=== PATIENT | female | born 1935 | race Caucasian/White ===

== ENCOUNTER 2021-11-07 16:38 | Emergency (ER) | payer MEDICARE, SELFPAY ==
[2021-11-07 16:45] VITALS: BP 145/94; BP 192/70; PULSE 110; PULSE 78; RESP 14; O2SAT 97; O2SAT 98; BMI 32.9
--- NOTE | 2021-11-07 16:45 | ED_ITS ---
HPI - General Adult General Chief complaint: Recheck/Abnormal Lab/Rx Stated complaint: hyperglycemic Time Seen by Provider: 11/07/21 16:42 Source: patient Mode of arrival: EMS Limitations: no limitations History of Present Illness HPI narrative: Patient came from assisted living for elevated blood sugar of 861. Patient feels okay otherwise had insulin in the morning, checked her blood sugar read 861 in fact she was reading it upside down supposed to be 168 feels slightly off and is no nausea or vomiting no abdominal pain no fever earlier today her blood sugar was 381 otherwise usually blood sugar less than 200 blood sugar tested by EMS was 163 and 155 and here on arrival was 137 Related Data Allergies Allergy/AdvReac Type Severity Reaction Status Date / Time Sulfa (Sulfonamide Allergy Unknown NAUSEA & Unverified 10/25/19 19:41 Antibiotics) VOMITING [SULFA (SULFONAMIDE ANTIBIOTICS)] Review of Systems Review of Systems: Yes all other systems are reviewed and are negative PMFSH Social History Social History Advance Directives: Yes Advance Directives Information Provided: No Advance Directives on File: No Physical Exam ED Vital Signs: Vital Signs - 24 hr 11/07/21 16:45 11/07/21 17:46 11/07/21 20:00 Temperature 98.1 F 97.7 F Pulse Rate 78 86 78 Respiratory Rate 14 16 16 Blood Pressure 145/94 H 131/57 L 150/60 H Pulse Oximetry 97 98 98 Oxygen Delivery Method Room Air Room Air Room Air 11/07/21 20:52 Temperature 98.2 F Pulse Rate 80 Respiratory Rate 18 Blood Pressure 156/52 H Pulse Oximetry 96 Oxygen Delivery Method Room Air BMI result Body Mass Index 32.9 Appearance: Alert. Oriented X3. No acute distress. ENT: Pharynx normal. Oral Mucosa moist Neck: Normal inspection. Neck supple. CVS: Normal heart rate and rhythm. Pulses normal. Respiratory: No respiratory distress. Equal air entry bilateral, no wheezing/rales/rhonchi Abdomen: Soft and nontender. Bowel sounds are present, no mass palpable, no CVA tenderness Skin: Skin warm and dry. Normal skin color. Normal skin turgor. Extremities: No lower extremity edema. No calf tenderness Neuro: Oriented X 3. No motor deficit. Medical Decision Making MDM Narrative Medical decision making narrative: Patient labs reveal creatinine elevated to 1.62 her usual creatinine is 1.3 or less. Patient advised to drink plenty of fluids IV fluids were given in the ER advised to follow-up with PCP to recheck her creatinine level within a week Lab Data Lab results reviewed: Yes I reviewed the patient's lab results. Result diagrams: 11/07/21 17:36 11/07/21 17:36 Labs: Lab Results 11/07/21 11/07/21 11/07/21 Range/Units 16:46 17:36 17:36 WBC 8.4 (4.8-10.8) X10*3/uL RBC 4.29 (4.20-5.50) X10*6/uL Hgb 11.5 L (12.0-16.0) g/dl Hct 36.7 L (37.0-47.0) % MCV 85.5 (80.0-98.0) fL MCH 26.8 L (27.0-33.0) pg MCHC 31.3 (31.0-35.0) g/dl RDW 13.6 (11.0-16.0) % Plt Count 263 (160-400) X10*3/uL MPV 12.5 H (9.4-12.3) fL Immature Gran % (Auto) 0.6 H (0.0-0.4) % Neut % (Auto) 69.9 (45-73) % Lymph % (Auto) 16.8 L (20-40) % [place] % (Auto) 7.9 (2-11) % Eos % (Auto) 3.9 (0-4) % Baso % (Auto) 0.9 (0-2) % Lymph # (Auto) 1.4 (1.2-4.9) X10*3/uL [place] # (Auto) 0.7 (0.1-1.2) X10*3/uL Eos # (Auto) 0.3 (0.0-0.4) X10*3/uL Baso # (Auto) 0.1 (0.0-0.2) X10*3/uL Abs Immat Gran (auto) 0.05 H (0.00-0.03) X10*3/uL Absolute Neuts (auto) 5.9 (2.0-8.3) x10*3/uL Absolute Nucleated RBC 0.000 (0.0-0.012) X10*3/uL Nucleated RBC % (auto) 0.0 (0.0-0.2) /100WBC Sodium 137 (135-145) mmol/L Potassium 4.4 (3.3-5.1) mmol/L Chloride 100 (96-108) mmol/L Carbon Dioxide 22 (22-29) mmol/L Anion Gap 19 (12-20) BUN 35 H (9-16) mg/dL Creatinine 1.62 H (0.5-1.4) mg/dL Estim Creat Clear Calc 25.1 Estimated GFR 30 POC Glucose 137 H (60-115) mg/dL Random Glucose 137 H (60-115) mg/dL Calcium 9.1 (8.4-10.2) mg/dL Magnesium 2.0 (1.6-2.6) mg/dL Total Bilirubin 0.4 (0.0-1.0) mg/dL AST 21 (5-31) U/L ALT 12 (0-31) U/L Alkaline Phosphatase 155 H (39-117) U/L Total Protein 6.8 (6.5-8.0) g/dL Albumin 4.1 (3.5-5.0) g/dL Urine Color Urine Appearance Urine pH (5.0-9.0) Ur Specific [place] (1.005-1.025) Urine Protein (Neg-Trace) mg/dL Urine Glucose (UA) (Negative) mg/dL Urine Ketones (Negative) mg/dL Urine Blood (Negative) Urine Nitrite (Negative) Ur Leukocyte Esterase (Negative) Urine RBC (0-2) /HPF Urine WBC (0-5) /HPF Ur Squamous Epith Cells (0-2) /HPF Urine Bacteria (None Seen) Hyaline Casts (0-2) /LPF COVID-19 (GABRIELA) (Negative) COVID-19 Clin Com 11/07/21 11/07/21 Range/Units 17:36 17:36 WBC (4.8-10.8) X10*3/uL RBC (4.20-5.50) X10*6/uL Hgb (12.0-16.0) g/dl Hct (37.0-47.0) % MCV (80.0-98.0) fL MCH (27.0-33.0) pg MCHC (31.0-35.0) g/dl RDW (11.0-16.0) % Plt Count (160-400) X10*3/uL MPV (9.4-12.3) fL Immature Gran % (Auto) (0.0-0.4) % Neut % (Auto) (45-73) % Lymph % (Auto) (20-40) % [place] % (Auto) (2-11) % Eos % (Auto) (0-4) % Baso % (Auto) (0-2) % Lymph # (Auto) (1.2-4.9) X10*3/uL [place] # (Auto) (0.1-1.2) X10*3/uL Eos # (Auto) (0.0-0.4) X10*3/uL Baso # (Auto) (0.0-0.2) X10*3/uL Abs Immat Gran (auto) (0.00-0.03) X10*3/uL Absolute Neuts (auto) (2.0-8.3) x10*3/uL Absolute Nucleated RBC (0.0-0.012) X10*3/uL Nucleated RBC % (auto) (0.0-0.2) /100WBC Sodium (135-145) mmol/L Potassium (3.3-5.1) mmol/L Chloride (96-108) mmol/L Carbon Dioxide (22-29) mmol/L Anion Gap (12-20) BUN (9-16) mg/dL Creatinine (0.5-1.4) mg/dL Estim Creat Clear Calc Estimated GFR POC Glucose (60-115) mg/dL Random Glucose (60-115) mg/dL Calcium (8.4-10.2) mg/dL Magnesium (1.6-2.6) mg/dL Total Bilirubin (0.0-1.0) mg/dL AST (5-31) U/L ALT (0-31) U/L Alkaline Phosphatase (39-117) U/L Total Protein (6.5-8.0) g/dL Albumin (3.5-5.0) g/dL Urine Color Yellow Urine Appearance Clear Urine pH 6.5 (5.0-9.0) Ur Specific [place] <= 1.005 (1.005-1.025) Urine Protein Negative (Neg-Trace) mg/dL Urine Glucose (UA) Negative (Negative) mg/dL Urine Ketones Negative (Negative) mg/dL Urine Blood Negative (Negative) Urine Nitrite Negative (Negative) Ur Leukocyte Esterase Trace H (Negative) Urine RBC 0-2 (0-2) /HPF Urine WBC 0-5 (0-5) /HPF Ur Squamous Epith Cells 0-2 (0-2) /HPF Urine Bacteria None Seen (None Seen) Hyaline Casts 0-2 (0-2) /LPF COVID-19 (GABRIELA) Positive A (Negative) COVID-19 Clin Com See Note Discharge Plan Discharge Clinical Impression: Hyperglycemia due to diabetes mellitus, BERT (acute kidney injury) Patient Disposition: Home, Self-Care Instructions: Acute Kidney Injury (DC), Diabetic Hyperglycemia (ED) Additional Instructions: Drink plenty of fluids Continue your insulin Follow-up with kidney specialist next week to recheck her kidney functions Today labs showed BUN 35 creatinine 1.62 Interventions: ED Discharge Assessment Last Done: 11/07/21 21:11 Discharge Date/Time: 11/07/21 21:13
[2021-11-07 16:50] LABS: Glucose, Whole Blood 137 mg/dL (60-115)
--- OUTSIDE RECORDS SUMMARY | 2021-11-07 17:03 | XMS_ITS | Continuity of Care Document ---
:1935 Author Organization [facility] Adult Address [address] [place] [address]- Care Team Providers Name Role Phone Shelly Smith NP Primary Care Physician [phone] [place] [facility] [place] 05/22[place]19 - 06/01/19 [facility] [address] [place] [address]- [facility] Attending Physician: Francisca Maradiaga Admitting Physician: AdmFrancisca davis Referring Physician: AdmtrFrancisca Allergies, Adverse Reactions, Alerts Substance Reaction Severity Status ciprofloxacin GI upset Active sulfADIAZINE Active Bactrim GI Upset Active Immunizations Given and Recorded Vaccine Date Status Refusal Reason influenza virus vaccine, inactivated1 11/04/17 Given influenza virus vaccine, inactivated2 10/27/16 Given influenza virus vaccine, inactivated3, 4 10/23/14 Recorde d influenza virus vaccine, inactivated5 10/23/13 Given influenza virus vaccine, inactivated6 11/11/12 Given influenza virus vaccine, inactivated 12/12/10 Given influenza virus vaccine, inactivated7 10/26/09 Given Zostavax (oldterm)8 10/27/16 Given Zostavax (oldterm)9 12/26/09 Given Influenza Vaccine (oldterm)10 10/03/15 Given pneumococcal 13-valent vaccine 09/09/14 Given FluLaval (oldterm) 11/12/11 Given pneumococcal 23-valent vaccine 01/18/11 Given tetanus-diphtheria toxoids (Td) 03/23/10 Given 1Result Comment: [id number] Note: [facility] [id number] History: [facility] Result Comment: [10/25/2014] HIGH [id number] Note: UGR1Tvgoe Note: Djqiomvv1Lcmbz Note: Wqicgcg8Qshcb Note: ceh5Kzcgp Note: Had hx of Xjgnmyfx66Izvdd Note: [facility] Medications amLODIPine 10 mg oral tablet 10 mg, 1, tablet, By Mouth, Daily, # 90 tablet, Refills 1, Tot. Refills 1, Maintenance, 05/22/19 10:36:00 EDT, [id number] 151.[facility], cm, 11/17/18 14:59:00 EDT, Height, 82.1, kg, 11/28/17 5:31:00 EDT, Dry Weight Start Date: 05/22/19 Stop Date: 11/18/19 Status: Orderedclopidogrel 75 mg oral tablet 75 mg, 1, tablet, By Mouth, Daily, # 90 tablet, Refills 2, Tot. Refills 2, Maintenance, 01/23/19 9:36:23 EST, [id number], 151.6, cm, 11/17/18 14:59:53 EDT, Height, 82.1, kg, 11/28/17 5:31:23 EDT, Dry Weight Start Date: 01/23/19 Stop Date: 01/18/20 Status: OrderedCranberry 0 Refills, Maintenance, 12/25/17 9:50:30 EST Start Date: 12/25/17 Status: Orderedfamotidine 20 mg oral tablet 20 mg, 1, tablet, By Mouth, Daily, # 90 tablet, Refills 2, Tot. Refills 2, Maintenance, 01/23/19 9:38:29 EST, Route to Pharmacy Electronically, [facility]/pharmacy #[id number], 151.6, cm, 11/17/18 14:59:53 EDT, Height, 82.1, kg, 11/28/17 5:31:23 EDT, Dry Weight Start Date: 01/23/19 Status: Orderedhydrochlorothiazide 25 mg oral tablet 25 mg, 1, tablet, By Mouth, Daily, # 90 tablet, Refills 2, Tot. Refills 2, Maintenance, 01/23/19 9:37:15 EST, [id number], 151.6, cm, 11/17/18 14:59:53 EDT, Height, 82.1, kg, 11/28/17 5:31:23 EDT, Dry Weight Start Date: 01/23/19 Stop Date: 01/18/20 Status: Orderedinsulin detemir 100 units/mL subcutaneous solution = 45 units, Subcutaneous Injection, Daily at bedtime, # 15 mL, 11 Refills, Maintenance, 07/18/18 10:47:18 EDT Start Date: 07/18/18 Stop Date: 07/02/21 Status: OrderedLevimir increase to 50 units daily Levimir increase to 50 units daily, See Instructions, # 1 each, Refills 0, Tot. Refills 0, Acute 11/18/19 15:53:00 EDT, Change in Levmiri dosing, 11/17/18 15:53:12 EDT, Compound Start Date: 11/17/18 Stop Date: 11/18/19 Status: Orderedlevothyroxine 0.112 mg oral tablet 1 tablet = 112 mcg, By Mouth, Daily, # 90 tablet, 0 Refills, Maintenance, 04/18/19 16:48:00 EDT, Tablet, [facility]/pharmacy #[id number], 151.6, cm, 11/17/18 14:59:00 EDT, Height, 82.1, kg, 11/28/17 5:31:00 EDT, Dry Weight Start Date: 04/18/19 Status: OrderedNovoLOG FlexPen 100 units/mL subcutaneous solution See Instructions, INJECT SUB Q PER SLIDING SCALE. MAX 24 UNITS DAILY, # 1 each, 11 Refills, Maintenance, 10/25/18 14:55:27 EDT, Injection Start Date: 10/25/18 Status: OrderedOne Touch Ultra Test Strips See Instructions, # 200 each, Refills 11, Tot. Refills 11, Maintenance, USED TO TEST BLOOD SUGARS QID DX: E11.9 , TYPE 2 DM, 05/22/19 12:22:00 EDT, Compound, 151.6, cm, 11/17/18 14:59:00 EDT, Height, 82.1, kg, 11/28/17 5:31:00 EDT, Dry Weight Start Date: 05/22/19 Status: OrderedPen [place], 31 G x 5 mm BD Ultra Fine III See Instructions, # 100 each, Refills 5, Tot. Refills 5, Maintenance, Use as daily with insulin Dx: Type 2 DM, E11.9, 04/24/19 10:39:00 EDT, Compound, 151.6, cm, 11/17/18 14:59:00 EDT, Height, 82.1, kg, 11/28/17 5:31:00 EDT, Dry Weight Start Date: 04/24/19 Stop Date: 10/21/19 Status: Orderedpotassium chloride 10 mEq oral tablet, extended release 2 tablet = 20 mEq, By Mouth, Daily, # 60 tablet, 11 Refills, Maintenance, 10/25/18 14:58:41 EDT, ER Tablet Start Date: 10/25/18 Status: Orderedpravastatin 40 mg oral tablet 1 tablet = 40 mg, By Mouth, Daily, # 30 tablet, 5 Refills, Maintenance, 01/02/19 15:11:43 EST, Tablet Start Date: 01/02/19 Status: OrderedVitamin D3 1000 intl units oral tablet 1 tablet = 1,000 International_Units, By Mouth, Daily, # 30 tablet, 0 Refills, Maintenance, 12/15/1813:43:58 EST, Tablet Start Date: 12/15/17 Stop Date: 01/14/18 Status: Ordered Problem List Condition Effective Dates Status Health Status Informant Diabetic nephropathy(Confirmed) Active Esophageal spasm(Confirmed) Active Cerebral infarction, Active chronic(Confirmed) Hypercholesterolemia(Confirmed) Active Hypertension(Confirmed) Active Type 2 diabetes mellitus(Confirmed) Active Unspecified Hypothyroidism(Confirmed) 01/26/10 Active Social History Social History Type Response Smoking Status Unknown if ever smoked entered on: 01/10/15 Sex
--- OUTSIDE RECORDS SUMMARY | 2021-11-07 17:03 | XMS_ITS | Continuity of Care Document ---
:1935 Author Organization [facility] Address [address] [place] [address]- Care Team Providers Name Role Phone Luis ASHLEY, Shelly Villareal Primary Care Physician [phone] [place] [facility] [place] 08/24/21 - 09/23/21 [facility] [address] [place] [address]- Attending Physician: Francisca Maradiaga Admitting Physician: AdmFrancisca davis Referring Physician: Admtr ArElyssa Allergies, Adverse Reactions, Alerts Substance Reaction Severity Status ciprofloxacin GI upset Active sulfADIAZINE Active Bactrim GI Upset Active Immunizations Given and Recorded Vaccine Date Status Refusal Reason SARS-CoV-2 (COVID-19) mRNA BNT-162b2 vac 12/17/20 Recorde d SARS-CoV-2 (COVID-19) mRNA BNT-162b2 vac 03/21/20 Recorde d SARS-CoV-2 (COVID-19) mRNA BNT-162b2 vac 02/29/20 Recorde d tetanus-diphtheria toxoids (Td)1 11/24/20 Given tetanus-diphtheria toxoids (Td) 03/23/10 Given influenza virus vaccine, inactivated 11/23/19 Recorded influenza virus vaccine, inactivated2 11/04/17 Given influenza virus vaccine, inactivated3 10/27/16 Given influenza virus vaccine, inactivated4, 5 10/23/14 Recorde d influenza virus vaccine, inactivated6 10/23/13 Given influenza virus vaccine, inactivated7 11/11/12 Given influenza virus vaccine, inactivated 12/12/10 Given influenza virus vaccine, inactivated8 10/26/09 Given Zostavax (oldterm)9 10/27/16 Given Zostavax (oldterm)10 12/26/09 Given Influenza Vaccine (oldterm)11 10/03/15 Given pneumococcal 13-valent vaccine 09/09/14 Given FluLaval (oldterm) 11/12/11 Given pneumococcal 23-valent vaccine 01/18/11 Given 1Result Comment: [facility] [id number] Comment: [id number] Note: [facility] [id number] History: [id number] Comment: [10/25/2014] HIGH [id number] Note: MDL5Rfqbe Note: Fbepwuqz7Mqgbz Note: Ydveyxb0Eksbq Note: xiz62Nqlnm Note: Had hx of Qnfhwpmf00Rlqgc Note: [facility] high dose Medications amLODIPine 10 mg oral tablet 1 tablet, By Mouth, Daily, # 90 tablet, 1 Refills, [facility], 151.6, cm, 05/25/21 8:30:00 EDT,Height Start Date: 07/20/21 Status: Orderedclopidogrel 75 mg oral tablet 1, tablet, By Mouth, Daily, # 90 tablet, Refills 3, Route to Pharmacy Electronically, [facility] [address], 151.6, cm, 11/24/20 8:55:00 EDT, Height Start Date: 01/09/21 Status: OrderedCompression stockings 20-30 mmhg Compression stockings 20-30 mmhg, See Instructions, # 1 each, Refills 0, Tot. Refills 0, Maintenance, Dx: Bilateral lower ankle edema, 05/25/21 10:52:00 EDT, Supply Start Date: 05/25/21 Status: OrderedCranberry 0 Refills, Maintenance, 12/25/17 9:50:30 EST Start Date: 12/25/17 Status: Ordereddocusate sodium 50 mg oral capsule 1 capsule = 50 mg, By Mouth, 2 times a day, # 60 capsule, 0 Refills, Maintenance, 05/26/20 9:11:00 EDT, [facility]/pharmacy #[id number], Partial fill upon patient request if the prescription is for a schedule II opioid drug., 151.6, cm, 05/26/20 8:48:00 EDT, Height Start Date: 05/26/20 Status: Orderedfamotidine 20 mg oral tablet 1, tablet, By Mouth, Daily, # 90 tablet, Refills 1, Route to Pharmacy Electronically, [facility], 151.6, cm, 05/25/21 8:30:00 EDT, Height Start Date: 07/20/21 Status: OrderedFreestyle Francheska Sensor See Instructions, # 1 each, Maintenance, use as directed for Type 2 Diabetes Mellitus E11.9, 05/27/21 8:48:00 EDT, Supply, 151.6, cm, 05/25/21 8:30:00 EDT, Height Start Date: 05/27/21 Stop Date: 06/26/21 Status: Orderedhydrochlorothiazide 25 mg oral tablet 1, tablet, By Mouth, Daily, # 90 tablet, Refills 0, Route to Pharmacy Electronically, [facility], 151.6, cm, 11/24/20 8:55:00 EDT, Height Start Date: 04/07/21 Status: OrderedLevemir FlexTouch 100 units/mL subcutaneous solution See Instructions, INJECT 55 UNITS SUBCUTANEOUSLY ONCE DAILY AT BEDTIME, # 45 Unknown, 2 [facility]ills[facility], cm, 11/24/20 8:55:00 EDT, Height Start Date: 02/11/21 Status: Orderedlevothyroxine 0.137 mg oral tablet 1 tablet, By Mouth, Daily, # 90 tablet, 1 Refills, [facility] ST[facility], 151.6, cm, 05/25/21 8:30:00 EDT,Height Start Date: 08/17/21 Status: OrderedNovoLOG FlexPen 100 units/mL injectable solution See Instructions, INJECT SUBCUTANEOUSLY ONCE DAILY PER SLIDING SCALE, MAX OF 24 UNITS DAILY, # 15 Unknown, 1 Refills, [facility], 151.6, cm, 05/26/20 8:48:00 EDT, Height Start Date: 10/14/20 Status: OrderedOne Touch Ultra 2 Glucose Meter See Instructions, # 1 each, Maintenance, used to test blood sugars QID DX: E11.9, Type 2 DM, 06/15/19 11:48:00 EDT, Supply, 151.6, cm, 11/17/18 14:59:00 EDT, Height, 82.1, kg, 11/28/17 5:31:00 EDT, DryWeight Start Date: 06/15/19 Status: OrderedONE TOUCH ULTRA BLUE TEST STRP ONE TOUCH ULTRA BLUE TEST STRP, See Instructions, # 200 Unknown, 5 Refills, Maintenance, USE TO TESTBLOOD SUGAR 3 TIMES A DAY, 151.6, cm, 05/26/20 8:48:00 EDT, Height Start Date: 08/11/20 Status: OrderedOne Touch Ultra Test Strips See Instructions, # 200 each, Refills 11, Tot. Refills 11, Maintenance, USED TO TEST BLOOD SUGARS TID DX: E11.9 , TYPE 2 DM, 07/09/19 14:43:00 EDT, Compound, 151.6, cm, 11/17/18 14:59:00 EDT, Height, 82.1, kg, 11/28/17 5:31:00 EDT, Dry Weight Start Date: 07/09/19 Status: OrderedPaxlovid Rx for reduced GFR Paxlovid Rx for reduced GFR, See Instructions, # 20 tablet, Refills 0, Tot. Refills 0, Maintenance, 150 mg nirmatrelvir with 100mg ritonavir. Both tablets taken together twice daily for 5 days, with food. Stop Pravastatin and reduce dose of amlodipi... Start Date: 08/24/21 Status: OrderedPen [place], 31 G x 5 mm BD Ultra Fine III See Instructions, # 100 each, Refills 5, Tot. Refills 5, Maintenance, Use as daily with insulin Dx: Type 2 DM, E11.9, 11/24/20 9:52:00 EDT, Compound, 151.6, cm, 11/24/20 8:55:00 EDT, Height Start Date: 11/24/20 Stop Date: 05/23/21 Status: OrderedPotassium Chloride (Idf-Ursy-Ezl 10) 10 mEq oral tablet, extended release 2 tablet, By Mouth, Daily, # 180 tablet, 3 Refills, [facility], 151.6, cm, 05/25/21 8:30:00 EDT, Height Start Date: 09/14/21 Status: Orderedpravastatin 40 mg oral tablet 1 tablet, By Mouth, Daily, # 90 tablet, 1 Refills, [facility], 151.6, cm, 05/25/21 8:30:00 EDT,Height Start Date: 06/25/21 Status: OrderedVitamin D3 1000 intl units oral tablet 1 tablet = 1,000 International_Units, By Mouth, Daily, # 30 tablet, 0 Refills, Maintenance, 12/15/1813:43:58 EST, Tablet Start Date: 12/15/17 Stop Date: 01/14/18 Status: Ordered Problem List Condition Effective Dates Status Health Status Informant Diabetic nephropathy(Confirmed) Active Esophageal spasm(Confirmed) Active Cerebral infarction, Active chronic(Confirmed) Hypercholesterolemia(Confirmed) Active Hypertension(Confirmed) Active Obese class II(Confirmed) Active Type 2 diabetes mellitus(Confirmed) Active Type 2 diabetes mellitus(Confirmed) 02/19/16 Active Unspecified Hypothyroidism(Confirmed) 01/26/10 Active Social History Social History Type Response Smoking Status Never (less than 100 in life time) entered on: 11/23/19 Sex
--- OUTSIDE RECORDS SUMMARY | 2021-11-07 17:03 | XMS_ITS | Continuity of Care Document ---
:1935 Author Organization [facility] Adult Address [address] [place] [address]- Care Team Providers Name Role Phone Shelly Smith NP Primary Care Physician [phone] Encounter [facility] [place](s): 11/24/20 - 12/01/20 [facility] Adult [address] [place] [phone]- Encounter Diagnosis Encounter for Medicare annual wellness exam (Discharge Diagnosis) - 11/24/20 Cerebral infarction, chronic (Discharge Diagnosis) - 11/24/20 Diabetic nephropathy (Discharge Diagnosis) - 11/24/20 Hypertension (Discharge Diagnosis) - 11/24/20 Type 2 diabetes mellitus (Discharge Diagnosis) - 11/24/20 Unspecified Hypothyroidism (Discharge Diagnosis) - 11/24/20 Attending Physician: Shelly Smith NP Allergies, Adverse Reactions, Alerts Substance Reaction Severity Status ciprofloxacin GI upset Active sulfADIAZINE Active Bactrim GI Upset Active Immunizations Given and Recorded Vaccine Date Status Refusal Reason tetanus-diphtheria toxoids (Td)1 11/24/20 Given tetanus-diphtheria toxoids (Td) 03/23/10 Given SARS-CoV-2 (COVID-19) mRNA BNT-162b2 vac 03/21/20 Recorde d SARS-CoV-2 (COVID-19) mRNA BNT-162b2 vac 02/29/20 Recorde d influenza virus vaccine, inactivated 11/23/19 Recorded influenza [...] pneumococcal 23-valent vaccine 01/18/11 Given 1Result Comment: [facility] [id number] Comment: [id number] Note: [facility] [id number] History: JIC6Cyftae Comment: [10/25/2014] HIGH [id number] Note: RAA7Kfwpn Note: Vvtqovbl8Xvsem Note: Uwxwmbz0Txuhq Note: rsu10Aiwvo Note: Had hx of Crxxsrge84Vanvw Note: [facility] high dose Medications amLODIPine 10 mg oral tablet 1 tablet, By Mouth, Daily, # 90 tablet, 0 Refills, [facility], 151.6, cm, 05/26/20 8:48:00 EDT,Height Start Date: 10/07/20 Status: Orderedclopidogrel 75 mg oral tablet 1, tablet, By Mouth, Daily, # 90 tablet, Refills 0, Route to Pharmacy Electronically, [facility]4563, 151.6, cm, 05/26/20 8:48:00 EDT, Height Start Date: 10/14/20 Status: OrderedCranberry 0 Refills, Maintenance, 12/25/17 9:50:30 EST Start Date: 12/25/17 Status: Ordereddocusate sodium 50 mg oral capsule 1 capsule = 50 mg, By Mouth, 2 times a day, # 60 capsule, 0 Refills, Maintenance, 05/26/20 9:11:00 EDT, [facility]/pharmacy #[id number], Partial fill upon patient request if the prescription is for a schedule II opioid drug., 151.6, cm, 05/26/20 8:48:00 EDT, Height Start Date: 05/26/20 Status: Orderedfamotidine 20 mg oral tablet 1, tablet, By Mouth, Daily, # 90 tablet, Refills 0, Route to Pharmacy Electronically, [facility] 47454, 151.6, cm, 05/26/20 8:48:00 EDT, Height Start Date: 10/12/20 Status: Orderedhydrochlorothiazide 25 mg oral tablet 1, tablet, By Mouth, Daily, # 90 tablet, Refills 0, Route to Pharmacy Electronically, [facility], 151.6, cm, 05/26/20 8:48:00 EDT, Height Start Date: 10/14/20 Status: OrderedLevemir FlexTouch 100 units/mL subcutaneous solution See Instructions, INJECT 50 UNITS SUBCUTANEOUSLY ONCE DAILY AT BEDTIME, # 45 Unknown, 0 [facility]ills, [facility], 151.[facility], cm, 05/26/20 8:48:00 EDT, Height Start Date: 11/01/20 Status: Orderedlevothyroxine 0.137 mg oral tablet 1 tablet = 137 mcg, By Mouth, Daily, # 30 tablet, 2 Refills, Maintenance, 11/25/20 16:58:00 EDT, Tablet, [id number], Partial fill upon patient request if the prescription is for a schedule II opioid drug., 151.6, cm, 11/24/20 8:55:00 EDT, Height Start Date: 11/25/20 Stop Date: 02/23/21 Status: OrderedNovoLOG FlexPen 100 units/mL injectable solution See Instructions, INJECT SUBCUTANEOUSLY ONCE DAILY PER SLIDING SCALE, MAX OF 24 UNITS DAILY, # 15 Unknown, 1 Refills, [facility], 151.6, cm, 05/26/20 8:48:00 EDT, Height Start [...] EDT, Dry Weight Start Date: 07/09/19 Status: OrderedPen [place], 31 G x 5 mm BD Ultra Fine III See Instructions, # 100 each, Refills 5, Tot. Refills 5, Maintenance, Use as daily with insulin Dx: Type 2 DM, E11.9, 11/24/20 9:52:00 EDT, Compound, 151.6, cm, 11/24/20 8:55:00 EDT, Height Start Date: 11/24/20 Stop Date: 05/23/21 Status: OrderedPotassium Chloride (Ijv-Hrfs-Yqw 10) 10 mEq oral tablet, extended release 2 tablet, By Mouth, Daily, # 180 tablet, 3 Refills, Maintenance, 09/23/20 15:36:00 EDT, [facility], 151.6, cm, 05/26/20 8:48:00 EDT, Height Start Date: 09/23/20 Status: Orderedpravastatin 40 mg oral tablet 1 tablet, By Mouth, Daily, # 90 tablet, 1 Refills, Maintenance, 06/26/20 7:30:00 EDT, [facility], 151.6, cm, 05/26/20 8:48:00 EDT, Height Start Date: 06/26/20 Status: OrderedVitamin D3 1000 intl units oral tablet 1 tablet = 1,000 International_Units, By Mouth, Daily, # 30 tablet, 0 Refills, Maintenance, 12/15/1813:43:58 EST, Tablet Start Date: 12/15/17 Stop Date: 01/14/18 Status: Ordered Problem List Condition Effective Dates Status Health Status Informant Diabetic nephropathy(Confirmed) Active Esophageal spasm(Confirmed) Active Cerebral infarction, Active chronic(Confirmed) Hypercholesterolemia(Confirmed) Active Hypertension(Confirmed) Active Type 2 diabetes mellitus(Confirmed) Active Type 2 diabetes mellitus(Confirmed) 02/19/16 Active Unspecified Hypothyroidism(Confirmed) 01/26/10 Active Diagnosis Diagnosis Type Effective [facility] Clinical Infor mant Status Service Encounter for Discharge 11/24/20 Medicare annual Diagnosis wellness exam Cerebral infarction, Discharge 11/24/20 chronic Diagnosis Diabetic nephropathy Discharge 11/24/20 Diagnosis Hypertension Discharge 11/24/20 Diagnosis Type 2 diabetes Discharge 11/24/20 mellitus Diagnosis Unspecified Discharge 11/24/20 Hypothyroidism Diagnosis Vital Signs Most recent to oldest [Reference Range]: 1 2 Height 151.6 cm 151.6 cm (11/24/20 8:55 AM) (11/24/20 8:24 AM) Weight 93.7 kg (11/24/20 8:24 AM) Oxygen Saturation [94-100 %] 94 % (11/24/20 8:24 AM) Pulse Rate [55-90 bpm] 72 bpm (11/24/20 8:24 AM) Body Mass Index [18.5-24.99] 40.77 *>HHI* (11/24/20 8:24 AM) Blood Pressure [90-138/55-84 mm Hg] 118/54 mm Hg 116/ 67 mm Hg (11/24/20 8:55 AM) (11/24/20 8:24 AM) Mode of Delivery (Oxygen) Room air (11/24/20 8:24 AM) Blood pressure sites Arm, left Arm, left (11/24/20 8:55 AM) (11/24/20 8:24 AM) Weight Obtained Via Standing scale (11/24/20 8:24 AM) Social History Social History Type Response Smoking Status Never (less than 100 in life time) entered on: 11/23/19 Sex
--- OUTSIDE RECORDS SUMMARY | 2021-11-07 17:03 | XMS_ITS | Continuity of Care Document ---
:1935 Author Organization [facility] Adult Address [address] [place] [address]- Care Team Providers Name Role Phone Luis ASHLEY, Shelly Villareal Primary Care Physician Encounter [facility] Date(s): 06/23/20 - 07/23/20 [facility] Adult [address] [place] [address]- Allergies, Adverse Reactions, Alerts Substance Reaction Severity Status ciprofloxacin GI upset Active sulfADIAZINE Active Bactrim GI Upset Active Immunizations Given and Recorded Vaccine Date Status Refusal Reason SARS-CoV-2 (COVID-19) mRNA BNT-162b2 vac 03/21/20 Recorde d SARS-CoV-2 (COVID-19) mRNA BNT-162b2 vac 02/29/20 Recorde d influenza virus vaccine, inactivated1 11/04/17 Given influenza [...] tetanus-diphtheria toxoids (Td) 03/23/10 Given 1Result Comment: [id number] Note: [facility] [id number] [facility]: [facility] Result Comment: [10/25/2014] HIGH XNAH8Ydmsg Note: AOP4Qlmga Note: Omwpbixg4Zznqd Note: Dwbzdco2Vlmfm Note: sfv9Mrayk Note: Had hx of Mabroimx78Sjidc Note: [facility] high dose Medications amLODIPine 10 mg oral tablet 1 tablet, By Mouth, Daily, # 90 tablet, 0 Refills, Maintenance, 07/09/20 14:40:00 EDT, [facility], 151.6, cm, 05/26/20 8:48:00 EDT, Height Start Date: 07/09/20 Status: Orderedclopidogrel 75 mg oral tablet 1, tablet, By Mouth, Daily, # 90 tablet, Refills 0, Tot. Refills 0, Maintenance, 07/11/20 16:26:00 EDT, Route to Pharmacy Electronically, [facility], 151.6, cm, 05/26/20 8:48:00 EDT, Height Start Date: 07/11/20 Status: OrderedCranberry 0 Refills, Maintenance, 12/25/17 9:50:30 EST Start Date: 12/25/17 Status: Ordereddocusate sodium 50 mg oral capsule 1 capsule = 50 mg, By Mouth, 2 times a day, # 60 capsule, 0 Refills, Maintenance, 05/26/20 9:11:00 EDT, [facility]/pharmacy #[id number], Partial fill upon patient request if the prescription is for a schedule II opioid drug., 151.6, cm, 05/26/20 8:48:00 EDT, Height Start Date: 05/26/20 Status: Orderedfamotidine 20 mg oral tablet 1, tablet, By Mouth, Daily, # 90 tablet, Refills 0, Tot. Refills 0, Maintenance, 07/09/20 14:40:00 EDT, Route to Pharmacy Electronically, [facility], 151.6, cm, 05/26/20 8:48:00 EDT, Height Start Date: 07/09/20 Status: Orderedhydrochlorothiazide 25 mg oral tablet 1, tablet, By Mouth, Daily, # 90 tablet, Refills 0, Tot. Refills 0, Maintenance, 07/09/20 14:40:00 EDT, Route to Pharmacy Electronically, [facility], 151.6, cm, 05/26/20 8:48:00 EDT, Height Start Date: 07/09/20 Status: OrderedLevemir FlexTouch 100 units/mL subcutaneous solution = 50 units, Subcutaneous Injection, Daily at bedtime, # 45 mL, 1 Refills, Maintenance, 01/22/20 13:15:00 EST, [facility]/pharmacy #[id number], 151.6, cm, 11/23/19 8:48:00 EDT, Height Start Date: 01/22/20 Stop Date: 07/20/20 Status: Orderedlevothyroxine 0.112 mg oral tablet 1 tablet = 112 mcg, By Mouth, Daily, # 90 tablet, 3 Refills, Maintenance, 10/10/19 10:45:00 EDT, Tablet, [facility]/pharmacy #7111, 151.6, cm, 08/13/19 9:18:00 EDT, Height, 82.1, kg, 11/28/17 5:31:00 EDT, DryWeight Start Date: 10/10/19 Status: OrderedNovoLOG FlexPen 100 units/mL subcutaneous solution See Instructions, INJECT SUB Q PER SLIDING SCALE. MAX 24 UNITS DAILY, # 1 each, 1 Refills, Maintenance, 10/30/19 9:45:00 EDT, Injection, [facility]/pharmacy #[id number], 151.6, cm, 08/13/19 9:18:00 EDT, Height, 82.1, kg, 11/28/17 5:31:00 EDT, Dry Weight Start Date: 10/30/19 Status: OrderedOne Touch Ultra 2 Glucose Meter See Instructions, # 1 each, Maintenance, used to test blood sugars QID DX: E11.9, Type 2 DM, 06/15/19 11:48:00 EDT, Supply, 151.6, cm, 11/17/18 14:59:00 EDT, Height, 82.1, kg, 11/28/17 5:31:00 EDT, DryWeight Start Date: 06/15/19 Status: OrderedOne Touch Ultra Test Strips See Instructions, # 200 each, Refills 11, Tot. Refills 11, Maintenance, USED TO TEST BLOOD SUGARS TID DX: E11.9 , TYPE 2 DM, 07/09/19 14:43:00 EDT, Compound, 151.6, cm, 11/17/18 14:59:00 EDT, Height, 82.1, kg, 11/28/17 5:31:00 EDT, Dry Weight Start Date: 07/09/19 Status: OrderedPen [place], 31 G x 5 mm BD Ultra Fine III See Instructions, # 100 each, Refills 5, Tot. Refills 5, Maintenance, Use as daily with insulin Dx: Type 2 DM, E11.9, 06/23/20 15:16:00 EDT, Compound, 151.6, cm, 05/26/20 8:48:00 EDT, Height Start Date: 06/23/20 Stop Date: 12/20/20 Status: Orderedpotassium chloride 10 mEq oral tablet, extended release 2 tablet = 20 mEq, By Mouth, Daily, # 60 tablet, 11 Refills, Maintenance, 10/08/19 12:26:00 EDT, ER Tablet, [facility]/pharmacy #[id number], 151.6, cm, 08/13/19 9:18:00 EDT, Height, 82.1, kg, 11/28/17 5:31:00 EDT, Dry Weight Start Date: 10/08/19 Status: Orderedpravastatin 40 mg oral tablet 1 tablet, By Mouth, Daily, # 90 tablet, 1 Refills, Maintenance, 06/26/20 7:30:00 EDT, [facility], 151.6, cm, 05/26/20 8:48:00 EDT, Height Start [...]
--- OUTSIDE RECORDS SUMMARY | 2021-11-07 17:03 | XMS_ITS | Continuity of Care Document ---
:1935 Author Organization [facility] Adult Address [address] [place] [address]- Care Team Providers Name Role Phone Luis ASHLEY, Shelly Villareal Primary Care Physician [phone] Encounter [facility] Date(s): 06/06/20 - 07/06/20 [facility] [address] [place] [address]- Allergies, Adverse Reactions, Alerts Substance Reaction Severity [...] tetanus-diphtheria toxoids (Td) 03/23/10 Given 1Result Comment: [id number] Note: [facility] [id number] [facility]: [facility] Result Comment: [10/25/2014] HIGH FQNO0Avmvy Note: MMW9Ywqto Note: Xfuewisy8Yjlbk Note: Xkkypji2Korsa Note: gct5Yiimp Note: Had hx of Iaxmtzto14Asoob Note: [facility] dose Medications amLODIPine 10 mg oral tablet 1 tablet, By Mouth, Daily, # 90 tablet, 0 Refills, Maintenance, 04/17/20 7:21:00 EST, [facility], 151.6, cm, 11/23/19 8:48:00 EDT, Height Start Date: 04/17/20 Status: Orderedclopidogrel 75 mg oral tablet 1, tablet, By Mouth, Daily, # 90 tablet, Refills 0, Tot. Refills 0, Maintenance, 04/15/20 15:29:00 EST, Route to Pharmacy Electronically, [facility] 98092, 151.6, cm, 11/23/19 8:48:00 EDT, Height Start Date: 04/15/20 Status: OrderedCranberry 0 Refills, Maintenance, 12/25/17 9:50:30 EST Start Date: 12/25/17 Status: Ordereddocusate sodium 50 mg oral capsule 1 capsule = 50 mg, By Mouth, 2 times a day, # 60 capsule, 0 Refills, Maintenance, 05/26/20 9:11:00 EDT, [facility]/pharmacy #[id number], Partial fill upon patient request if the prescription is for a schedule II opioid drug., 151.6, cm, 05/26/20 8:48:00 EDT, Height Start Date: 05/26/20 Status: Orderedfamotidine 20 mg oral tablet 20 mg, 1, tablet, By Mouth, Daily, # 90 tablet, Refills 0, Tot. Refills 0, Maintenance, 04/14/20 16:19:00 EST, Route to Pharmacy Electronically, [facility]/pharmacy #[id number], 151.6, cm, 11/23/19 8:48:00 EDT, Height Start Date: 04/14/20 Status: Orderedhydrochlorothiazide 25 mg oral tablet 25 mg, 1, tablet, By Mouth, Daily, # 90 tablet, Refills 0, Tot. Refills 0, Maintenance, 04/15/20 10:15:00 EST, Route to Pharmacy Electronically, [facility]/pharmacy #[id number], 151.6, cm, 11/23/19 8:48:00 EDT, Height Start Date: 04/15/20 Status: OrderedLevemir FlexTouch 100 units/mL subcutaneous solution = 50 units, Subcutaneous Injection, Daily at bedtime, # 45 mL, 1 Refills, Maintenance, 01/22/20 13:15:00 EST, [id number], 151.6, cm, 11/23/19 8:48:00 EDT, Height Start Date: 01/22/20 Stop Date: 07/20/20 Status: Orderedlevothyroxine 0.112 mg oral tablet 1 tablet = 112 mcg, By Mouth, Daily, # 90 tablet, 3 Refills, Maintenance, 10/10/19 10:45:00 EDT, Tablet, [facility]/pharmacy #[id number], 151.6, cm, 08/13/19 9:18:00 EDT, Height, 82.1, kg, 11/28/17 5:31:00 EDT, DryWeight Start Date: 10/10/19 Status: OrderedNovoLOG FlexPen 100 units/mL subcutaneous solution See Instructions, INJECT SUB Q PER SLIDING SCALE. MAX 24 UNITS DAILY, # 1 each, 1 Refills, Maintenance, 10/30/19 9:45:00 EDT, Injection, [facility]/pharmacy #[id number], 151.6, cm, 08/13/19 9:18:00 EDT, [...] Dry Weight Start Date: 07/09/19 Status: OrderedPen [place], 31 G x 5 mm BD Ultra [...] Refills, Maintenance, 10/08/19 12:26:00 EDT, ER Tablet, [id number], 151.6, cm, 08/13/19 9:18:00 EDT, Height, 82.1, kg, 11/28/17 5:31:00 EDT, Dry Weight Start Date: 10/08/19 Status: Orderedpravastatin 40 mg oral tablet 1 tablet, By Mouth, Daily, # 90 tablet, 1 Refills, Maintenance, 06/26/20 7:30:00 EDT, [facility], 151.6, cm, 05/26/20 8:48:00 EDT, Height Start [...]
--- OUTSIDE RECORDS SUMMARY | 2021-11-07 17:03 | XMS_ITS | Continuity of Care Document ---
:1935 Author Organization [facility] Address [address] [place] [address]- Care Team Providers Name Role Phone Shelly Smith NP Primary Care Physician [place] [facility] [place]s): 05/22/19 - 05/29/19 [facility] [address] [place] [address] Encounter Diagnosis Cerebral infarction, chronic (Discharge Diagnosis) - 05/22/19 Diabetic nephropathy (Discharge Diagnosis) - 05/22/19 Hypercholesterolemia (Discharge Diagnosis) - 05/22/19 Hypertension (Discharge Diagnosis) - 05/22/19 Type 2 diabetes mellitus (Discharge Diagnosis) - 05/22/19 Unspecified Hypothyroidism (Discharge Diagnosis) - 05/22/19 Attending Physician: Shelly Smith NP Referring Physician: Beck Mendez MD Allergies, Adverse Reactions, Alerts Substance Reaction Severity [...] tetanus-diphtheria toxoids (Td) 03/23/10 Given 1Result Comment: [id number] Note: [facility] [id number] [facility]: [facility] Result Comment: [10/25/2014] HIGH [id number] Note: AQK3Nedvt Note: Krgldgqd1Pqete Note: Lftwuav7Cnmxy Note: ewm6Zparr Note: Had hx of Acoawiwk13Ikpxn Note: [facility] Medications amLODIPine 10 mg oral tablet 10 mg, 1, tablet, By Mouth, Daily, # 90 tablet, Refills 1, Tot. Refills 1, Maintenance, 05/22/19 10:36:00 EDT, [id number] 151[facility], cm, 11/17/18 14:59:00 EDT, Height, 82.1, kg, 11/28/17 5:31:00 EDT, Dry Weight Start Date: 05/22/19 Stop Date: 11/18/19 Status: Orderedclopidogrel 75 mg oral tablet 75 mg, 1, tablet, By Mouth, Daily, # 90 tablet, Refills 2, Tot. Refills 2, Maintenance, 01/23/19 9:36:23 EST, [facility] 151.6, cm, 11/17/18 14:59:53 EDT, Height, 82.1, kg, 11/28/17 5:31:23 EDT, Dry Weight Start Date: 01/23/19 Stop Date: 01/18/20 Status: OrderedCranberry 0 Refills, Maintenance, 12/25/17 9:50:30 EST Start Date: 12/25/17 Status: Orderedfamotidine 20 mg oral tablet 20 mg, 1, tablet, By Mouth, Daily, # 90 tablet, Refills 2, Tot. Refills 2, Maintenance, 01/23/19 9:38:29 EST, [facility] 151.6, cm, 11/17/18 14:59:53 EDT, Height, 82.1, kg, 11/28/17 5:31:23 EDT, Dry Weight Start Date: 01/23/19 Status: Orderedhydrochlorothiazide 25 mg oral tablet 25 mg, 1, tablet, By Mouth, Daily, # 90 tablet, Refills 2, Tot. Refills 2, Maintenance, 01/23/19 9:37:15 EST, Route to Pharmacy Electronically, [facility]/pharmacy #2339, 151.6, cm, 11/17/18 14:59:53 EDT, Height, [...] 0 Refills, Maintenance, 04/18/19 16:48:00 EDT, Tablet, [facility]/pharmacy #2339, 151.6, cm, 11/17/18 14:59:00 EDT, Height, [...] Dry Weight Start Date: 05/22/19 Status: OrderedPen [place], 31 G x 5 mm BD Ultra [...] diabetes mellitus(Confirmed) Active Unspecified Hypothyroidism(Confirmed) 01/26/10 Active Diagnosis Diagnosis Type Effective Health Clinical Informant Dates Status Service Cerebral infarction, Discharge 05/22/19 chronic Diagnosis Diabetic nephropathy Discharge 05/22/19 Diagnosis Hypercholesterolemia Discharge 05/22/19 Diagnosis Hypertension Discharge 05/22/19 Diagnosis Type 2 diabetes mellitus Discharge 05/22/19 Diagnosis Unspecified Discharge 05/22/19 Hypothyroidism Diagnosis Social History Social History Type Response Smoking Status Unknown if ever smoked entered on: 01/10/15 Sex
--- OUTSIDE RECORDS SUMMARY | 2021-11-07 17:03 | XMS_ITS | Continuity of Care Document ---
:1935 Author Organization [facility] Adult Address [address] [place] [address]- Care Team Providers Name Role Phone Luis ASHLEY, Shelly Villareal Primary Care Physician Encounter [facility] Date(s): 11/23/19 - 11/30/19 [facility] [address] [place] [id number] [facility] Encounter Diagnosis Medicare annual wellness visit, initial (Discharge Diagnosis) - 11/23/19 Attending Physician: Shelly Smith NP Referring Physician: Andrea AYON, Beck Allergies, Adverse Reactions, Alerts Substance Reaction Severity [...] tetanus-diphtheria toxoids (Td) 03/23/10 Given 1Result Comment: [id number] Note: [facility] [id number] History: [facility] Result Comment: [10/25/2014] HIGH [id number] Note: STA1Dzkyr Note: Qoeinqdz2Xxqdw Note: Djernye7Hwamh Note: lpq6Snslr Note: Had hx of Ifxguwax99Nuqgg Note: [facility] high dose Medications amLODIPine 10 mg oral tablet 10 mg, 1, tablet, By Mouth, Daily, # 90 tablet, Refills 0, Tot. Refills 0, Maintenance, 10/30/19 9:45:00 EDT, [id number] 151[facility], cm, 08/13/19 9:18:00 EDT, Height, 82.1, kg, 11/28/17 5:31:00 EDT, Dry Weight Start Date: 10/30/19 Stop Date: 01/28/20 Status: Orderedclopidogrel 75 mg oral tablet 75 mg, 1, tablet, By Mouth, Daily, # 90 tablet, Refills 0, Tot. Refills 0, Maintenance, 10/30/19 9:45:00 EDT, [id number], 151.6, cm, 08/13/19 9:18:00 EDT, Height, 82.1, kg, 11/28/17 5:31:00 EDT, Dry Weight Start Date: 10/30/19 Status: OrderedCranberry 0 Refills, Maintenance, 12/25/17 9:50:30 EST Start Date: 12/25/17 Status: Orderedfamotidine 20 mg oral tablet 20 mg, 1, tablet, By Mouth, Daily, # 90 tablet, Refills 0, Tot. Refills 0, Maintenance, 10/30/19 9:45:00 EDT, Route to Pharmacy Electronically, [facility]/pharmacy #[id number], 151.6, cm, 08/13/19 9:18:00 EDT, Height, 82.1, kg, 11/28/17 5:31:00 EDT, Dry Weight Start Date: 10/30/19 Status: Orderedhydrochlorothiazide 25 mg oral tablet 25 mg, 1, tablet, By Mouth, Daily, # 90 tablet, Refills 0, Tot. Refills 0, Maintenance, 10/30/19 9:45:00 EDT, [id number], 151.6, cm, 08/13/19 9:18:00 EDT, Height, 82.1, kg, 11/28/17 5:31:00 EDT, Dry Weight Start Date: 10/30/19 Status: Orderedinsulin detemir 100 units/mL subcutaneous solution = 45 units, Subcutaneous Injection, Daily at bedtime, # 15 mL, 3 Refills, Maintenance, 07/02/21 10:47:00 EDT, [id number], 151.6, cm, 08/13/19 9:18:00 EDT, Height, 82.1, kg, 11/28/17 5:31:00 EDT, Dry Weight Start Date: 07/02/21 Stop Date: 06/27/22 Status: Orderedinsulin detemir 100 units/mL subcutaneous solution = 45 units, Subcutaneous Injection, Daily at bedtime, for 90 days, # 15 mL, 11 Refills, Hard Stop 07/02/21 10:47:18 EDT, 07/18/18 10:47:18 EDT, [facility]/pharmacy #[id number] Start Date: 07/18/18 Stop Date: 07/02/21 Status: OrderedLevimir decrease to 45 units daily Levimir decrease to 45 units daily, See Instructions, # 1 each, Refills 3, Tot. Refills 3, Maintenance, Change in Levmiri dosing, 11/18/19 15:53:00 EDT, Compound, 151.6, cm, 08/13/19 9:18:00 EDT, Height, 82.1, kg, 11/28/17 5:31:00 EDT, Dry Weight Start Date: 11/18/19 Status: Orderedlevothyroxine 0.112 mg oral tablet 1 tablet = 112 mcg, By Mouth, Daily, # 90 tablet, 3 Refills, Maintenance, 10/10/19 10:45:00 EDT, Tablet, [id number], 151.6, cm, 08/13/19 9:18:00 EDT, Height, 82.1, kg, 11/28/17 5:31:00 EDT, DryWeight Start Date: 10/10/19 Status: OrderedNovoLOG FlexPen 100 units/mL subcutaneous solution See Instructions, INJECT SUB Q PER SLIDING SCALE. MAX 24 UNITS DAILY, # 1 each, 1 Refills, Maintenance, 10/30/19 9:45:00 EDT, Injection, [facility]/pharmacy #[id number], 151.6, cm, 08/13/19 9:18:00 EDT, Height, [...] Dry Weight Start Date: 07/09/19 Status: OrderedPen [place], 31 G x 5 mm BD Ultra [...] Refills, Maintenance, 10/08/19 12:26:00 EDT, ER Tablet, [facility]/pharmacy #[id number], 151.6, cm, 08/13/19 9:18:00 EDT, Height, 82.1, kg, 11/28/17 5:31:00 EDT, Dry Weight Start Date: 10/08/19 Status: Orderedpravastatin 40 mg oral tablet 1 tablet = 40 mg, By Mouth, Daily, # 90 tablet, 3 Refills, Maintenance, 07/09/19 11:11:00 EDT, Tablet, [id number], 151.6, cm, 11/17/18 14:59:00 EDT, Height, 82.1, kg, 11/28/17 5:31:00 EDT, Dry Weight Start Date: 07/09/19 Stop Date: 07/03/20 Status: OrderedVitamin D3 1000 intl units oral [...] Hypothyroidism(Confirmed) 01/26/10 Active Diagnosis Diagnosis Type Effective Dates Health Status Clinical In formant Service Medicare annual Discharge 11/23/19 wellness visit, Diagnosis initial Vital Signs Most recent to oldest [Reference Range]: 1 2 Height 151.6 cm 151.6 cm (11/23/19 8:48 AM) (11/23/19 8:19 AM) Weight 89.7 kg (11/23/19 8:19 AM) Oxygen Saturation [94-100 %] 96 % (11/23/19 8:19 AM) Pulse Rate [55-90 bpm] 79 bpm (11/23/19 8:19 AM) Body Mass Index [18.5-24.99] 39.03 *>HHI* (11/23/19 8:19 AM) Blood Pressure [90-138/55-84 mm Hg] 130/58 mm Hg 128/ 60 mm Hg (11/23/19 8:48 AM) (11/23/19 8:19 AM) Mode of Delivery (Oxygen) Room air (11/23/19 8:19 AM) Blood pressure sites Arm, left Arm, left (11/23/19 8:48 AM) (11/23/19 8:19 AM) Weight Obtained Via Standing scale (11/23/19 8:19 AM) Social History Social History Type Response Smoking Status Never (less than 100 in life time) entered on: 11/23/19 Sex
--- OUTSIDE RECORDS SUMMARY | 2021-11-07 17:04 | XMS_ITS | Continuity of Care Document ---
:1935 Author Organization [facility] Adult Address [address] [place] [address]- Care Team Providers Name Role Phone Luis ASHLEY, Shelly Villareal Primary Care Physician [phone] Encounter [facility] Date(s): 01/21/20 - 02/20/20 [facility] [address] [place] [address]- Allergies, Adverse Reactions, Alerts Substance Reaction Severity [...] tetanus-diphtheria toxoids (Td) 03/23/10 Given 1Result Comment: [id number] Note: [facility] [id number] History: [facility] Result Comment: [10/25/2014] HIGH [id number] Note: SCF2Ahtui Note: Dunhjaxu2Mrvpa Note: Rhzwlkk9Qsrfa Note: xqk9Zdhgl Note: Had hx of Omeesvqd04Pmoal Note: [facility] dose Medications amLODIPine 10 mg oral tablet 10 mg, 1, tablet, By Mouth, Daily, # 90 tablet, Refills 0, Tot. Refills 0, Maintenance, 01/28/20 9:45:00 EST, [id number] 151.[facility], cm, 11/23/19 8:48:00 EDT, Height Start Date: 01/28/20 Stop Date: 04/27/20 Status: Orderedclopidogrel 75 mg oral tablet 75 mg, 1, tablet, By Mouth, Daily, # 90 tablet, Refills 0, Tot. Refills 0, Maintenance, 01/21/20 10:00:00 EST, [id number] 151.6, cm, 11/23/19 8:48:00 EDT, Height Start Date: 01/21/20 Status: OrderedCranberry 0 Refills, Maintenance, 12/25/17 9:50:30 EST Start Date: 12/25/17 Status: Orderedfamotidine 20 mg oral tablet 20 mg, 1, tablet, By Mouth, Daily, # 90 tablet, Refills 0, Tot. Refills 0, Maintenance, 01/21/20 9:49:00 EST, [id number], 151.6, cm, 11/23/19 8:48:00 EDT, Height Start Date: 01/21/20 Status: Orderedhydrochlorothiazide 25 mg oral tablet 25 mg, 1, tablet, By Mouth, Daily, # 90 tablet, Refills 0, Tot. Refills 0, Maintenance, 01/21/20 10:00:00 EST, [id number] 151.6, cm, 11/23/19 8:48:00 EDT, Height Start Date: 01/21/20 Status: OrderedLevemir FlexTouch 100 units/mL subcutaneous solution = 50 units, Subcutaneous Injection, Daily at bedtime, # 45 mL, 1 Refills, Maintenance, 01/22/20 13:15:00 EST, [facility]/pharmacy #[id number], 151.6, cm, 11/23/19 8:48:00 EDT, Height Start Date: 01/22/20 Stop Date: 07/20/20 Status: Orderedlevothyroxine 0.112 mg oral tablet 1 tablet = 112 mcg, By Mouth, Daily, # 90 tablet, 3 Refills, Maintenance, 10/10/19 10:45:00 EDT, Tablet, [facility]/pharmacy #[id number], 151.6, cm, 08/13/19 9:18:00 EDT, Height, 82.1, kg, 11/28/17 5:31:00 EDT, DryWeight Start Date: 10/10/19 Status: OrderedNovoLOG FlexPen 100 units/mL subcutaneous solution See Instructions, INJECT SUB Q PER SLIDING SCALE. MAX 24 UNITS DAILY, # 1 each, 1 Refills, Maintenance, 10/30/19 9:45:00 EDT, Injection, [facility]/pharmacy #[id number], 151.6, cm, 08/13/19 9:18:00 EDT, [...] Dry Weight Start Date: 07/09/19 Status: OrderedPen [place], 31 G x 5 mm BD Ultra [...] Refills, Maintenance, 10/08/19 12:26:00 EDT, ER Tablet, [facility]/pharmacy #[id number], 151.6, cm, 08/13/19 9:18:00 EDT, Height, 82.1, kg, 11/28/17 5:31:00 EDT, Dry Weight Start Date: 10/08/19 Status: Orderedpravastatin 40 mg oral tablet 1 tablet = 40 mg, By Mouth, Daily, # 90 tablet, 3 Refills, Maintenance, 07/09/19 11:11:00 EDT, Tablet, [facility]/pharmacy #[id number], 151.6, cm, 11/17/18 14:59:00 EDT, Height, [...]
--- OUTSIDE RECORDS SUMMARY | 2021-11-07 17:04 | XMS_ITS | Continuity of Care Document ---
:1935 Author Organization [facility] Address [address] [place] [address]- Care Team Providers Name Role Phone Tulio Fernández MD Primary Care Physician Encounter [facility] Date(s): 06/17/19 - 06/17/[address] [address]- [facility] Discharge Disposition: A-D/C Home Attending Physician: Alexi Yen MD Admitting Physician: Alexi Yen MD Referring Physician: Not on Staff, Referring MD Allergies, Adverse Reactions, Alerts Substance Reaction [...] tetanus-diphtheria toxoids (Td) 03/23/10 Given 1Result Comment: [id number] Note: [facility] onir5Sjecigla History: [facility] Result Comment: [10/25/2014] HIGH [id number] Note: TCV4Posto Note: Vnxttavy4Xllpl Note: Smcgsig0Leuyq Note: ihy3Hszbo Note: Had hx of Liislmse44Avtof Note: [facility] high dose Medications amLODIPine 10 mg oral tablet 10 mg, 1, tablet, By Mouth, Daily, # 90 tablet, Refills 1, Tot. Refills 1, Maintenance, 05/22/19 10:36:00 EDT, Route to Pharmacy Electronically, [facility]/pharmacy #2339, 151.6, cm, 11/17/18 14:59:00 EDT, Height, 82.1, kg, 11/28/17 5:31:00 EDT, Dry Weight Start Date: 05/22/19 Stop Date: 11/18/19 Status: Orderedclopidogrel 75 mg oral tablet 75 mg, 1, tablet, By Mouth, Daily, # 90 tablet, Refills 2, Tot. Refills 2, Maintenance, 01/23/19 9:36:23 EST, [facility], 151.6, cm, 11/17/18 14:59:53 EDT, Height, 82.1, kg, 11/28/17 5:31:23 EDT, Dry Weight Start Date: 01/23/19 Stop Date: 01/18/20 Status: OrderedCranberry 0 Refills, Maintenance, 12/25/17 9:50:30 EST Start Date: 12/25/17 Status: Orderedfamotidine 20 mg oral tablet 20 mg, 1, tablet, By Mouth, Daily, # 90 tablet, Refills 2, Tot. Refills 2, Maintenance, 01/23/19 9:38:29 EST, Route to Pharmacy Electronically, [facility]/pharmacy #2339, 151.6, cm, 11/17/18 14:59:53 EDT, Height, 82.1, kg, 11/28/17 5:31:23 EDT, Dry Weight Start Date: 01/23/19 Status: Orderedhydrochlorothiazide 25 mg oral tablet 25 mg, 1, tablet, By Mouth, Daily, # 90 tablet, Refills 2, Tot. Refills 2, Maintenance, 01/23/19 9:37:15 EST, Route to Pharmacy Electronically, [facility]/pharmacy #2339, 151.6, cm, 11/17/18 14:59:53 EDT, [...] 0 Refills, Maintenance, 04/18/19 16:48:00 EDT, Tablet, [facility]/pharmacy #2339, 151.6, cm, 11/17/18 14:59:00 EDT, Height, 82.1, kg, 11/28/17 5:31:00 EDT, Dry Weight Start Date: 04/18/19 Status: OrderedNovoLOG FlexPen 100 units/mL subcutaneous solution See Instructions, INJECT SUB Q PER SLIDING SCALE. MAX 24 UNITS DAILY, # 1 each, 11 Refills, Maintenance, 10/25/18 14:55:27 EDT, Injection Start Date: 10/25/18 Status: OrderedOne Touch Ultra 2 Glucose Meter [...] QID DX: E11.9 , TYPE 2 DM, 06/15/19 11:44:00 EDT, Compound, 151.6, cm, 11/17/18 14:59:00 EDT, Height, 82.1, kg, 11/28/17 5:31:00 EDT, Dry Weight Start Date: 06/15/19 Status: OrderedPen [place], 31 G x 5 mm BD Ultra [...] diabetes mellitus(Confirmed) Active Unspecified Hypothyroidism(Confirmed) 01/26/10 Active Results Orders for Microbiology Reports Name Date Group A Strep Screen and Culture 06/17/19 Microbiology Reports TEST:Group A Strep Screen and Culture STATUS:Unauthenticated BODY SITE: SOURCE:THROAT COLLECTED DATE/TIME:06/17/19 12:43 AMGroup A Strep Screen and Culture SPECIMEN DESCRIPTION : THROAT SWAB SPECIAL REQUESTS : NONE DIRECT EXAM : RAPID GROUP A RESULT IS NEGATIVE, REFER TO CULTURE RESULT. REPORT STATUS : PRELIMINARY REPORT Radiology Reports Exam Date Time Procedure Performing Provider Status 06/17/19 1:48 AM Chest Portable Jey Quezada; Dana (Verified) Notes:(Chest Portable) Reason For Exam: Shortness of BreathRESULT: Chest Portable Examination: Portable chest performed on 06/17/19 at 1:26 am. History: Shortness of breath. Findings: A frontal view of the chest is compared to a prior study dated 11/25/17. The cardiac and mediastinal silhouettes are within normal limits. The lungs are clear with the exception of a subtle right upper lobe opacity. The osseous and soft tissue structures are unremarkable. Impression: Subtle right upper lobe opacity which could represent an early infiltrate. WSN: [id number] Ordering Physician: Aric Cameron Dictated By: Evelyne Wood MD Dictated Date/Time: 06/17/19 8:35 am Reviewed By: Evelyne Wood MD Signed By: Evelyne Wood MD Signed Date/Time: 06/17/19 8:35 am Transcribed By: BARBI Transcribed Date/Time: 06/17/19 8:33 am Vital Signs Most recent to oldest 1 2 3 [Reference Range]: Oxygen Saturation [94-100 %] 100 % 100 % 100 % (06/17/19 4:46 AM) (06/17/19 3:33 AM) (06/17/19 12: 23 AM) Pulse Rate [55-90 bpm] 76 bpm 77 bpm 83 bpm (06/17/19 4:46 AM) (06/17/19 3:33 AM) (06/17/19 12: 23 AM) Blood Pressure [90-138/55-84 158/41 mm Hg 162/80 mm Hg 111 /60 mm Hg mm Hg] *H* *H* (06/17/19 12:23 A M) (06/17/19 4:46 AM) (06/17/19 3:33 AM) Respiratory Rate [16-30 20 br/min 18 br/min 20 br/mi n br/min] (06/17/19 4:46 AM) (06/17/19 3:33 AM) (06/17/19 12: 23 AM) Temperature [96.8-100.4 DegF] 97.8 DegF 97.8 DegF (06/17/19 3:33 AM) (06/17/19 12:23 AM) Mode of Delivery (Oxygen) Room air Room air Room a ir (06/17/19 4:46 AM) (06/17/19 3:33 AM) (06/17/19 12: 23 AM) Blood pressure sites Arm, left Arm, left (06/17/19 3:33 AM) (06/17/19 12:23 AM) Temperature Route Oral Oral (06/17/19 3:33 AM) (06/17/19 12:23 AM) Social History Social History Type Response Smoking Status Unknown if ever smoked entered on: 01/10/15 Sex
--- OUTSIDE RECORDS SUMMARY | 2021-11-07 17:04 | XMS_ITS | Continuity of Care Document ---
:1935 Author Organization [facility] Adult Address [address] [place] [address]- Care Team Providers Name Role Phone Luis ASHLEY, Shelly Villareal Primary Care Physician [place] [facility] [place]): 08/13/19 - 08/20/19 [facility] [address] [place] [address]- [facility] Attending Physician: Shelly Smith NP Referring Physician: [...] tetanus-diphtheria toxoids (Td) 03/23/10 Given 1Result Comment: [id number] Note: [facility] [id number] History: [facility] Result Comment: [10/25/2014] HIGH KKVI5Nkptd Note: RFJ7Eioqv Note: Woadrczv3Goves Note: Srjpobm3Rcpor Note: uyg1Vuhyz Note: Had hx of Hguocszr89Uvkcp Note: [facility] high dose Medications amLODIPine 10 mg oral tablet 10 mg, 1, tablet, By Mouth, Daily, # 90 tablet, Refills 1, Tot. Refills 1, Maintenance, 05/22/19 10:36:00 EDT, [facility] 151.[facility], cm, 11/17/18 14:59:00 EDT, Height, 82.1, kg, 11/28/17 5:31:00 EDT, Dry Weight Start Date: 05/22/19 Stop Date: 11/18/19 Status: Orderedclopidogrel 75 mg oral tablet 75 mg, 1, tablet, By Mouth, Daily, # 90 tablet, Refills 2, Tot. Refills 2, Maintenance, 01/23/19 9:36:23 EST, [facility], 151.6, cm, 11/17/18 14:59:53 EDT, Height, 82.1, kg, 11/28/17 5:31:23 EDT, Dry Weight Start Date: 01/23/19 Stop Date: 01/18/20 Status: OrderedCranberry 0 Refills, Maintenance, 12/25/17 9:50:30 EST Start Date: 12/25/17 Status: Orderedfamotidine 20 mg oral tablet 20 mg, 1, tablet, By Mouth, Daily, # 90 tablet, Refills 2, Tot. Refills 2, Maintenance, 01/23/19 9:38:29 EST, [facility] [...] EDT, Dry Weight Start Date: 11/18/19 Status: OrderedLevimir increase to 50 units daily Levimir increase to 50 units daily, See Instructions, # 1 each, Refills 0, Tot. Refills 0, Acute 11/18/19 15:53:00 EDT, Change in Levmiri dosing, 11/17/18 15:53:12 EDT, Compound Start Date: 11/17/18 Stop Date: 11/18/19 Status: Orderedlevothyroxine 0.112 mg oral tablet 1 tablet = 112 mcg, By Mouth, Daily, # 90 tablet, 0 Refills, Maintenance, 07/17/19 9:05:00 EDT, Tablet, [facility]/pharmacy #[id number], 151.6, cm, 11/17/18 14:59:00 EDT, Height, 82.1, kg, 11/28/17 5:31:00 EDT, DryWeight Start Date: 07/17/19 Status: OrderedNovoLOG FlexPen 100 units/mL subcutaneous solution See Instructions, INJECT SUB Q PER SLIDING SCALE. MAX 24 UNITS DAILY, # 1 each, 11 Refills, Maintenance, 10/25/18 14:55:27 EDT, Injection Start Date: 10/25/18 Status: OrderedOne Touch Ultra 2 Glucose Meter See Instructions, # 1 each, Maintenance, used to test blood sugars QID DX: E11.9, Type 2 DM, 05/08/20 11:48:00 EDT, Supply, 151.6, cm, 11/17/18 14:59:00 [...] Dry Weight Start Date: 07/09/19 Status: OrderedPen [place], 31 G x 5 mm BD Ultra [...] 3 Refills, Maintenance, 07/09/19 11:11:00 EDT, Tablet, [facility]/pharmacy #7111, 151.6, cm, 11/17/18 14:59:00 EDT, [...] mellitus(Confirmed) 02/19/16 Active Unspecified Hypothyroidism(Confirmed) 01/26/10 Active Vital Signs Most recent to oldest [Reference Range]: 1 2 Height 151.6 cm 151.6 cm (08/13/19 9:18 AM) (08/13/19 8:29 AM) Weight 87.3 kg (08/13/19 8:29 AM) Oxygen Saturation [94-100 %] 93 % *L* (08/13/19 8:29 AM) Pulse Rate [55-90 bpm] 79 bpm (08/13/19 8:29 AM) Body Mass Index [18.5-24.99] 37.99 *>HHI* (08/13/19 8:29 AM) Blood Pressure [90-138/55-84 mm Hg] 128/56 mm Hg 136/ 60 mm Hg (08/13/19 9:18 AM) (08/13/19 8:29 AM) Blood pressure sites Arm, left (08/13/19 8:29 AM) Weight Obtained Via Standing scale (08/13/19 8:29 AM) Social History Social History Type Response Smoking Status Unknown if ever smoked entered on: 01/10/15 Sex
--- OUTSIDE RECORDS SUMMARY | 2021-11-07 17:04 | XMS_ITS | Continuity of Care Document ---
:1935 Author Organization [facility] Adult Address [address] [place] [address]- Care Team Providers Name Role Phone Luis ASHLEY, Shelly Villareal Primary Care Physician [phone] Encounter [facility] Date(s): 05/25/21 - 06/01/21 [facility] [address] [place] [address]- Encounter Diagnosis Cerebral infarction, chronic (Discharge Diagnosis) - 05/25/21 Diabetic nephropathy (Discharge Diagnosis) - 05/25/21 Hypertension (Discharge Diagnosis) - 05/25/21 Type 2 diabetes mellitus (Discharge Diagnosis) - 05/25/21 Unspecified Hypothyroidism (Discharge Diagnosis) - 05/25/21 Type 2 diabetes mellitus (Discharge Diagnosis) - 05/25/21 Edema (Discharge Diagnosis) - 05/25/21 Attending Physician: Shelly Smith NP Allergies, Adverse [...] pneumococcal 23-valent vaccine 01/18/11 Given 1Result Comment: [facility] [id number] Comment: [id number] Note: [facility] [id number] History: BMQ4Ypyiuh Comment: [10/25/2014] HIGH CVRQ8Qwmai Note: UZV2Euiku Note: Nvyzfjnp1Htfgd Note: Semskad9Ubtiy Note: xhi71Vmtdr Note: Had hx of Cbfebxrj92Gpali Note: [facility] dose Medications amLODIPine 10 mg oral tablet 1 tablet, By Mouth, Daily, # 90 tablet, 0 Refills, [facility], 151.6, cm, 11/24/20 8:55:00 EDT,Height Start Date: 04/07/21 Status: Orderedclopidogrel 75 mg oral tablet 1, tablet, By Mouth, Daily, # 90 tablet, Refills 3, Route to Pharmacy Electronically, [facility], 151.6, cm, 11/24/20 8:55:00 EDT, Height Start [...] capsule, 0 Refills, Maintenance, 05/26/20 9:11:00 EDT, [facility]/pharmacy #7111, Partial fill upon patient request if the prescription is for a schedule II opioid drug., 151.6, cm, 05/26/20 8:48:00 EDT, Height Start Date: 05/26/20 Status: Orderedfamotidine 20 mg oral tablet 1, tablet, By Mouth, Daily, # 90 tablet, Refills 0, [facility] to [facility], [facility], 151.6, cm, 11/24/20 8:55:00 EDT, Height Start Date: 04/07/21 Status: OrderedFreestyle Francheska Sensor See Instructions, # 1 each, Maintenance, use as directed for Type 2 Diabetes Mellitus E11.9, 05/27/21 8:48:00 EDT, Supply, 151.6, cm, 05/25/21 8:30:00 EDT, Height Start Date: 05/27/21 Stop Date: 06/26/21 Status: Orderedhydrochlorothiazide 25 mg oral tablet 1, tablet, By Mouth, Daily, # 90 tablet, Refills 0, Route to [facility], [facility], 151.6, cm, 11/24/20 8:55:00 EDT, Height Start Date: 04/07/21 Status: OrderedLevemir FlexTouch 100 units/mL subcutaneous solution See Instructions, INJECT 55 UNITS SUBCUTANEOUSLY ONCE DAILY AT BEDTIME, # 45 Unknown, 2 [facility]ills, [facility] 151[facility], cm, 11/24/20 8:55:00 EDT, Height Start Date: 02/11/21 Status: Orderedlevothyroxine 0.137 mg oral tablet 1 tablet, By Mouth, Daily, # 90 tablet, 1 Refills, [facility], 151.6, cm, 11/24/20 8:55:00 EDT,Height Start Date: 02/22/21 Status: OrderedNovoLOG FlexPen 100 units/mL injectable solution See Instructions, INJECT SUBCUTANEOUSLY ONCE DAILY PER SLIDING SCALE, MAX OF 24 UNITS DAILY, # 15 Unknown, 1 Refills, [facility], 151.6, cm, 05/26/20 8:48:00 EDT, Height Start [...] Dry Weight Start Date: 07/09/19 Status: OrderedPen [place], 31 G x 5 mm BD Ultra Fine III See Instructions, # 100 each, Refills 5, Tot. Refills 5, Maintenance, Use as daily with insulin Dx: Type 2 DM, E11.9, 11/24/20 9:52:00 EDT, Compound, 151.6, cm, 11/24/20 8:55:00 EDT, Height Start Date: 11/24/20 Stop Date: 05/23/21 Status: OrderedPotassium Chloride (Cqx-Nkii-Ljn 10) 10 mEq oral tablet, extended release 2 tablet, By Mouth, Daily, # 180 tablet, 3 Refills, Maintenance, 09/23/20 15:36:00 EDT, [facility], 151.6, cm, 05/26/20 8:48:00 EDT, Height Start Date: 09/23/20 Status: Orderedpravastatin 40 mg oral tablet 1 tablet, By Mouth, Daily, # 90 tablet, 1 Refills, [facility], 151.6, cm, 11/24/20 8:55:00 EDT,Height Start Date: 12/17/20 Status: OrderedVitamin D3 1000 intl units oral [...] Active Diagnosis Diagnosis Type Effective Dates Health Clinical Infor mant Status Service Cerebral infarction, Discharge 05/25/21 chronic Diagnosis Diabetic nephropathy Discharge 05/25/21 Diagnosis Hypertension Discharge 05/25/21 Diagnosis Type 2 diabetes Discharge 05/25/21 mellitus Diagnosis Unspecified Discharge 05/25/21 Hypothyroidism Diagnosis Type 2 diabetes Discharge 05/25/21 mellitus Diagnosis Edema Discharge 05/25/21 Diagnosis Vital Signs Most recent to oldest [Reference Range]: 1 2 Height 151.6 cm 151.6 cm (05/25/21 8:30 AM) (05/25/21 8:04 AM) Weight 91.9 kg (05/25/21 8:04 AM) Oxygen Saturation [94-100 %] 97 % (05/25/21 8:04 AM) Pulse Rate [55-90 bpm] 67 bpm (05/25/21 8:04 AM) Body Mass Index [18.5-24.99] 39.99 *>HHI* (05/25/21 8:04 AM) Blood Pressure [90-138/55-84 mm Hg] 128/64 mm Hg 136/ 63 mm Hg (05/25/21 8:30 AM) (05/25/21 8:04 AM) Temperature [96.8-100.4 DegF] 97.9 DegF (05/25/21 8:04 AM) Mode of Delivery (Oxygen) Room air (05/25/21 8:04 AM) Blood pressure sites Arm, left Arm, right (05/25/21 8:30 AM) (05/25/21 8:04 AM) Temperature Route Temporal (05/25/21 8:04 AM) Weight Obtained Via Standing scale (05/25/21 8:04 AM) Social History Social History Type Response Smoking Status Never (less than 100 in life time) entered on: 11/23/19 Sex
--- OUTSIDE RECORDS SUMMARY | 2021-11-07 17:04 | XMS_ITS | Continuity of Care Document ---
:1935 Author Organization [facility] Adult Address [address] [place] [address]- Care Team Providers Name Role Phone Luis ASHLEY, Shelly Villareal Primary Care Physician [facility] Date[facility]): 11/[facility]19 - 12/06/19 [facility] [address] [place] [id number]- [facility] Allergies, Adverse Reactions, Alerts Substance Reaction Severity [...] tetanus-diphtheria toxoids (Td) 03/23/10 Given 1Result Comment: [id number] Note: [facility] high [id number] [facility]: [facility] Result Comment: [10/25/2014] HIGH OONR4Kxsli Note: ECQ2Vmpio Note: Nmyzpcty4Gvjog Note: Tlumsyy0Jbxtd Note: zdc0Hzhtj Note: Had hx of Bdqjqqbj68Ceiar Note: [facility] high dose Medications amLODIPine 10 mg oral tablet 10 mg, 1, tablet, By Mouth, Daily, # 90 tablet, Refills 0, Tot. Refills 0, Maintenance, 10/30/19 9:45:00 EDT, Route to Pharmacy Electronically, [facility]/pharmacy #[id number], 151.6, cm, 08/13/19 9:18:00 EDT, Height, 82.1, kg, 11/28/17 5:31:00 EDT, Dry Weight Start Date: 10/30/19 Stop Date: 01/28/20 Status: Orderedclopidogrel 75 mg oral tablet 75 mg, 1, tablet, By Mouth, Daily, # 90 tablet, Refills 0, Tot. Refills 0, Maintenance, 10/30/19 9:45:00 EDT, [id number] 151.6, cm, 08/13/19 9:18:00 EDT, Height, 82.1, kg, 11/28/17 5:31:00 EDT, Dry Weight Start Date: 10/30/19 Status: OrderedCranberry 0 Refills, Maintenance, 12/25/17 9:50:30 EST Start Date: 12/25/17 Status: Orderedfamotidine 20 mg oral tablet 20 mg, 1, tablet, By Mouth, Daily, # 90 tablet, Refills 0, Tot. Refills 0, Maintenance, 10/30/19 9:45:00 EDT, [id number] 151.6, cm, 08/13/19 9:18:00 EDT, Height, 82.1, kg, 11/28/17 5:31:00 EDT, Dry Weight Start Date: 10/30/19 Status: Orderedhydrochlorothiazide 25 mg oral tablet 25 mg, 1, tablet, By Mouth, Daily, # 90 tablet, Refills 0, Tot. Refills 0, Maintenance, 10/30/19 9:45:00 EDT, [id number] 151.6, cm, 08/13/19 9:18:00 EDT, Height, 82.1, kg, 11/28/17 5:31:00 EDT, Dry Weight Start Date: 10/30/19 Status: Orderedinsulin detemir 100 units/mL subcutaneous solution = 45 units, Subcutaneous Injection, Daily at bedtime, # 15 mL, 11 Refills, Maintenance, 12/03/19 8:43:00 EDT, [id number], 151.6, cm, 11/23/19 8:48:00 EDT, Height, Dry Weight Start Date: 12/03/19 Stop Date: 11/17/22 Status: Orderedinsulin detemir 100 units/mL subcutaneous solution = 45 units, Subcutaneous Injection, Daily at bedtime, for 90 days, # 15 mL, 11 Refills, Hard Stop 07/02/21 10:47:18 EDT, 07/18/18 10:47:18 EDT, [id number] Start Date: 07/18/18 Stop Date: 07/02/21 [...] 3 Refills, Maintenance, 10/10/19 10:45:00 EDT, Tablet, [facility]/pharmacy #[id number], 151.6, cm, 08/13/19 9:18:00 EDT, Height, 82.1, kg, 11/28/17 5:31:00 EDT, DryWeight Start Date: 10/10/19 Status: OrderedNovoLOG FlexPen 100 units/mL subcutaneous solution See Instructions, INJECT SUB Q PER SLIDING SCALE. MAX 24 UNITS DAILY, # 1 each, 1 Refills, Maintenance, 10/30/19 9:45:00 EDT, Injection, [id number], 151.6, cm, 08/13/19 9:18:00 EDT, [...] Dry Weight Start Date: 07/09/19 Status: OrderedPen [place], 31 G x 5 mm BD Ultra [...] Refills, Maintenance, 10/08/19 12:26:00 EDT, ER Tablet, [facility]/pharmacy #[id number], 151.6, cm, 08/13/19 9:18:00 EDT, [...]
--- OUTSIDE RECORDS SUMMARY | 2021-11-07 17:04 | XMS_ITS ---
:1935 Author Care Team Providers Name Role Phone CHERYLE MAHAN MD Primary Care Provider [phone] Allergies Code Code System Name Reaction Severity Status Onset NKDA ? Medications Name Status Start Date Stop Date ? ? amlodipine 10 mg tablet Active ? Not avai lable amlodipine 5 mg tablet Completed ? amoxicillin 500 mg-potassium clavulanate 125 mg tablet Completed ? 10/07/2020 azithromycin 250 mg tablet Completed ? 10/07 BD Ultra-Fine Mini Pen Needle 31 gauge x 3/16 Active ? Not available clopidogrel 75 mg tablet Active ? Not channing ilable famotidine 20 mg tablet Active ? Not avai lable Flublok Quad (PF) 180 mcg (45 mcg x 4)/0.5 mL IM syrin ge Completed ? 06/01/2021 PHARMACY ADMINISTERED GaviLyte-G 236 gram-22.74 gram-6.74 gram-5.86 gram oral Complete d ? 06/01/2021 solution hydrochlorothiazide 25 mg tablet Active ? Not available Klor-Con M20 mEq tablet,extended release Completed ? 06/01/2021 Levemir FlexTouch U-100 Insulin 100 unit/mL (3 mL) Active ? Not available subcutaneous pen levothyroxine 112 mcg tablet Active ? Not available TAKE 1 TABLET BY MOUTH EVERY DAY levothyroxine 125 mcg tablet Completed ? levothyroxine 137 mcg tablet Active ? Not available lisinopril 40 mg tablet Active ? Not avai lable NovoFine 30 30 gauge x 1/3 needle Completed ? 06/01/2021 Novolog Flexpen U-100 Insulin aspart 100 unit/mL (3 mL) Active ? Not available subcutaneous OneTouch Ultra Blue Test Strip Active ? N ot available USE TO TEST BLOOD SUGAR 3 TIMES A DAY OneTouch Ultra Test strips Active ? Not a vailable polyethylene glycol 3350 17 gram/dose oral powder Completed ? 06/01/2021 potassium chloride ER 10 mEq tablet,extended release Active ? Not available pravastatin 40 mg tablet Active ? Not channing ilable ranitidine 150 mg capsule Completed ? 2021 ranitidine 150 mg tablet Completed ? 022 Zostavax (PF) 19,400 unit/0.65 mL subcutaneous Active ? Not available suspension Problems Name Status Onset Date Source ? Type 2 Diabetes Mellitus Active 02/19/2016 ? 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 Pain in Toe Active 02/19/2016 ? Ingrowing Nail Active 05/06/2016 ? Procedures Date Name Performed by ? ? Knee Surgery Information not avai lable Notes: TKR Results Lab Results None recorded. Past Encounters 10/07/2020 Pain in Toe; Type 2 Diabetes Mellitus; O nychomycosis [facility]: [address], [place] [address], Ph. 07/15/2020 Ingrowing Nail; Pain in Toe; Onychogryph osis; Type 2 Diabetes Mellitus; Onychomycosis [facility]: [address], [place] [address], Ph. Social History Tobacco Smoking Status Never Smoker Vaccine List Vaccine Type influenza, injectable, quadrivalent 11/10/2015 Plan of Care Reminders Provider Appointments None recorded. ? ? Lab None recorded. ? ? Referral None recorded. ? ? Procedures None recorded. ? ? Surgeries None recorded. ? ? Imaging None recorded. ? ? Vitals 10/07/2020 10:45AM ESTABLISHED PATIENT 15 Height 5 ft 3 in 07/15/2020 11:30AM ESTABLISHED PATIENT 15 Height Weight BMI Blood Pressure 5 ft 3 in 200 lbs 35.4 kg/m2 124/66 mm[Hg] 04/29/2020 11:30AM ESTABLISHED PATIENT 15 Height Weight BMI Blood Pressure 5 ft 3 in 200 lbs 35.4 kg/m2 122/64 mm[Hg] 02/19/2020 11:00AM ESTABLISHED PATIENT 15 Height Weight BMI Blood Pressure 5 ft 3 in 200 lbs 35.4 kg/m2 122/64 mm[Hg] 11/15/2019 10:15AM ESTABLISHED PATIENT 15 Height Weight BMI Blood Pressure 5 ft 3 in 200 lbs 35.4 kg/m2 122/64 mm[Hg] 09/03/2019 10:15AM ESTABLISHED PATIENT 15 Height Weight BMI 5 ft 3 in 200 lbs 35.4 kg/m2 11/07/2018 11:30AM ESTABLISHED PATIENT 15 Height Weight BMI 5 ft 3 in 200 lbs 35.4 kg/m2 08/28/2018 11:30AM ESTABLISHED PATIENT 15 Height Weight BMI 5 ft 3 in 200 lbs 35.4 kg/m2 06/19/2018 11:30AM ESTABLISHED PATIENT 15 Height Weight BMI 5 ft 3 in 200 lbs 35.4 kg/m2 04/03/2018 11:30AM ESTABLISHED PATIENT 15 Height Weight BMI 5 ft 3 in 200 lbs 35.4 kg/m2 01/23/2018 10:30AM ESTABLISHED PATIENT 15 Height Weight BMI 5 ft 3 in 200 lbs 35.4 kg/m2 11/07/2017 10:15AM ESTABLISHED PATIENT 15 Height Weight BMI 5 ft 3 in 200 lbs 35.4 kg/m2 08/22/2017 10:30AM ESTABLISHED PATIENT 15 Height Weight BMI 5 ft 3 in 200 lbs 35.4 kg/m2 05/31/2017 04:00PM ESTABLISHED PATIENT 15 Height Weight BMI 5 ft 3 in 200 lbs 35.4 kg/m2 03/09/2017 10:00AM ESTABLISHED PATIENT 15 Height Weight BMI Blood Pressure 5 ft 3 in 200 lbs 35.4 kg/m2 124/62 mm[Hg] 09/30/2016 10:30AM ESTABLISHED PATIENT 15 Height Weight BMI Blood Pressure 5 ft 3 in 200 lbs 35.4 kg/m2 124/68 mm[Hg] 05/06/2016 10:30AM FOLLOW UP 15 Height Weight BMI Blood Pressure 5 ft 3 in 200 lbs 35.4 kg/m2 122/68 mm[Hg] 02/19/2016 10:30AM FOLLOW UP 15 Height Weight BMI Blood Pressure 5 ft 3 in 200 lbs 35.4 kg/m2 124/68 mm[Hg]
--- OUTSIDE RECORDS SUMMARY | 2021-11-07 17:04 | XMS_ITS | Continuity of Care Document ---
:1935 Author Organization [facility] Adult Address [address] [place] [address]- Care Team Providers Name Role Phone Luis ASHLEY, Shelly Villareal Primary Care Physician [phone] [facility] Date[facility]s): 10/08/19 - 11/07/19 [facility] Adult [address] [place] [address]- [facility] Allergies, Adverse Reactions, Alerts Substance Reaction Severity [...] tetanus-diphtheria toxoids (Td) 03/23/10 Given 1Result Comment: [id number] Note: [facility] high gmvh3Djgjqjeu History: [facility] Result Comment: [10/25/2014] HIGH TLIE3Knajz Note: DPE4Pevmr Note: Vfmaaoro4Ftlai Note: Jsmuhti4Ujokn Note: kkx7Vkhie Note: Had hx of Quqcoolt31Azner Note: [facility] high dose Medications amLODIPine 10 mg oral tablet 10 mg, 1, tablet, By Mouth, Daily, # 90 tablet, Refills 0, Tot. Refills 0, Maintenance, 10/30/19 9:45:00 EDT, Route to Pharmacy Electronically, [facility]/pharmacy #[id number], 151.6, cm, 08/13/19 9:18:00 EDT, Height, 82.1, kg, 11/28/17 5:31:00 EDT, Dry Weight Start Date: 10/30/19 Stop Date: 01/28/20 Status: Orderedclopidogrel 75 mg oral tablet 75 mg, 1, tablet, By Mouth, Daily, # 90 tablet, Refills 0, Tot. Refills 0, Maintenance, 10/30/19 9:45:00 EDT, [id number] 151.6, cm, 08/13/19 9:18:00 EDT, Height, 82.1, kg, 11/28/17 5:31:00 EDT, Dry Weight Start Date: 10/30/19 Status: OrderedCranberry 0 Refills, Maintenance, 12/25/17 9:50:30 EST Start Date: 12/25/17 Status: Orderedfamotidine 20 mg oral tablet 20 mg, 1, tablet, By Mouth, Daily, # 90 tablet, Refills 0, Tot. Refills 0, Maintenance, 10/30/19 9:45:00 EDT, [id number], 151.6, cm, 08/13/19 9:18:00 EDT, Height, 82.1, kg, 11/28/17 5:31:00 EDT, Dry Weight Start Date: 10/30/19 Status: Orderedhydrochlorothiazide 25 mg oral tablet 25 mg, 1, tablet, By Mouth, Daily, # 90 tablet, Refills 0, Tot. Refills 0, Maintenance, 10/30/19 9:45:00 EDT, [facility] Pharm[facility], [id number], 151.6, cm, 08/13/19 9:18:00 EDT, Height, 82.1, kg, 11/28/17 5:31:00 EDT, Dry Weight Start Date: 10/30/19 Status: Orderedinsulin detemir 100 units/mL subcutaneous solution = 45 units, Subcutaneous Injection, Daily at bedtime, # 15 mL, 3 Refills, Maintenance, 07/02/21 10:47:00 EDT, [facility]/pharmacy #[id number], 151.6, cm, 08/13/19 9:18:00 EDT, Height, 82.1, kg, 11/28/17 5:31:00 EDT, Dry Weight Start Date: 07/02/21 Stop Date: 06/27/22 Status: Orderedinsulin detemir 100 units/mL subcutaneous solution = 45 units, Subcutaneous Injection, Daily at bedtime, for 90 days, # 15 mL, 11 Refills, Hard Stop 07/02/21 10:47:18 EDT, 07/18/18 10:47:18 EDT, [facility]/pharmacy #[id number] Start Date: 07/18/18 Stop Date: 07/02/21 [...] 1 Refills, Maintenance, 10/30/19 9:45:00 EDT, Injection, [facility]/pharmacy #[id number], 151.6, cm, 08/13/19 9:18:00 EDT, [...] Dry Weight Start Date: 07/09/19 Status: OrderedPen [place], 31 G x 5 mm BD Ultra [...] Refills, Maintenance, 10/08/19 12:26:00 EDT, ER Tablet, [facility]/pharmacy #[id number], 151.6, cm, 08/13/19 9:18:00 EDT, Height, 82.1, kg, 11/28/17 5:31:00 EDT, Dry Weight Start Date: 10/08/19 Status: Orderedpravastatin 40 mg oral tablet 1 tablet = 40 mg, By Mouth, Daily, # 90 tablet, 3 Refills, Maintenance, 07/09/19 11:11:00 EDT, Tablet, [facility]/pharmacy #[id number], 151.6, cm, 11/17/18 14:59:00 EDT, [...]
--- OUTSIDE RECORDS SUMMARY | 2021-11-07 17:04 | XMS_ITS | Continuity of Care Document ---
:1935 Author Organization [facility] Adult Address [address] [place] [address]- Care Team Providers Name Role Phone Luis ASHLEY, Shelly Villareal Primary Care Physician [phone] [facility] Date[facility]s): 08/24/21 - 09/23/21 [facility] Adult [address] [place] [address]- Allergies, Adverse Reactions, Alerts Substance Reaction Severity [...] pneumococcal 23-valent vaccine 01/18/11 Given 1Result Comment: [facility] [place] [id number] Comment: [id number] Note: [facility] gqgj3Mwmliwlr History: SAM5Ceexeg Comment: [10/25/2014] HIGH RBPX6Elown Note: FDO1Svien Note: Fmikhmgi8Apafw Note: Kqjdwnx2Lyfkk Note: rut57Eepht Note: Had hx of Argxqajg15Qfxph Note: [facility] high dose Medications amLODIPine 10 mg oral tablet 1 tablet, By Mouth, Daily, # 90 tablet, 1 Refills, [facility], 151.6, cm, 05/25/21 8:30:00 EDT,Height Start Date: 07/20/21 Status: Orderedclopidogrel 75 mg oral tablet 1, tablet, By Mouth, Daily, # 90 tablet, Refills 3, Route to [facility], [facility], 151.6, cm, 11/24/20 8:55:00 EDT, Height Start [...] capsule, 0 Refills, Maintenance, 05/26/20 9:11:00 EDT, [facility]/pharmacy #[id number], Partial fill upon patient request if the prescription is for a schedule II opioid drug., 151.6, cm, 05/26/20 8:48:00 EDT, Height Start Date: 05/26/20 Status: Orderedfamotidine 20 mg oral tablet 1, tablet, By Mouth, Daily, # 90 tablet, Refills 1, Route to [facility], [facility], 151.6, cm, 05/25/21 8:30:00 EDT, Height Start [...] 0, Route to [facility] Electronically, [facility], 151.6, cm, 11/24/20 8:55:00 EDT, Height Start Date: 04/07/21 Status: OrderedLevemir FlexTouch 100 units/mL subcutaneous solution See Instructions, INJECT 55 UNITS SUBCUTANEOUSLY ONCE DAILY AT BEDTIME, # 45 Unknown, 2 Refills, [facility], 151.6, cm, 11/24/20 8:55:00 EDT, Height Start Date: 02/11/21 Status: Orderedlevothyroxine 0.137 mg oral tablet 1 tablet, By Mouth, Daily, # 90 tablet, 1 Refills, [facility], 151.6, cm, 05/25/21 8:30:00 EDT,Height Start Date: 08/17/21 Status: OrderedNovoLOG FlexPen 100 units/mL injectable solution See Instructions, INJECT SUBCUTANEOUSLY ONCE DAILY PER SLIDING SCALE, MAX OF 24 UNITS DAILY, # 15 Unknown, 1 Refills, [facility], 151.6, cm, 05/26/20 8:48:00 EDT, Height Start [...] of amlodipi... Start Date: 08/24/21 Status: OrderedPen [place], 31 G x 5 mm BD Ultra Fine III See Instructions, # 100 each, Refills 5, Tot. Refills 5, Maintenance, Use as daily with insulin Dx: Type 2 DM, E11.9, 11/24/20 9:52:00 EDT, Compound, 151.6, cm, 11/24/20 8:55:00 EDT, Height Start Date: 11/24/20 Stop Date: 05/23/21 Status: OrderedPotassium Chloride (Uqe-Hdkw-Ckw 10) 10 mEq oral tablet, extended release 2 tablet, By Mouth, Daily, # 180 tablet, 3 Refills, [facility], 151.6, cm, 05/25/21 8:30:00 EDT, Height Start Date: 09/14/21 Status: Orderedpravastatin 40 mg oral tablet 1 tablet, By Mouth, Daily, # 90 tablet, 1 Refills, [facility], 151.6, cm, 05/25/21 8:30:00 EDT,Height Start Date: [...]
--- OUTSIDE RECORDS SUMMARY | 2021-11-07 17:04 | XMS_ITS | Continuity of Care Document ---
:1935 Author Organization [facility] Address [address] [place] [address]- Care Team Providers Name Role Phone Luis ASHLEY, Shelly Villareal Primary Care Physician Encounter [facility] Date(s): 08/24/21 - 08/31/21 [facility] [address] [place] [address]- Attending Physician: Ashli Shelton MD Referring Physician: Shelly Smith NP Allergies, Adverse Reactions, [...] Given Zostavax (oldterm)9 10/27/16 Given Zostavax (oldterm)10 11/19/10 Given Influenza Vaccine (oldterm)11 10/03/15 Given pneumococcal 13-valent vaccine 09/09/14 Given FluLaval (oldterm) 11/12/11 Given pneumococcal 23-valent vaccine 01/18/11 Given 1Result Comment: [facility] [place] [id number] Comment: [id number] Note: [facility] yayd4Lghcrggk History: XCQ1Alwufn Comment: [10/25/2014] HIGH BBUQ3Zvury Note: PZR1Wvzer Note: Vcddwfhk6Oqdiw Note: Hwdjwuz1Jgicz Note: pgn60Ebzac Note: Had hx of Qrvfjgoy33Dotgk Note: [facility] dose Medications amLODIPine 10 mg oral tablet 1 tablet, By Mouth, Daily, # 90 tablet, 1 Refills, [facility], 151.6, cm, 05/25/21 8:30:00 EDT,Height Start Date: 07/20/21 Status: Orderedclopidogrel 75 mg oral tablet 1, tablet, By Mouth, Daily, # 90 tablet, Refills 3, Route to [facility] Electronically, [facility], 151.6, cm, 11/24/20 8:55:00 EDT, Height Start [...] capsule, 0 Refills, Maintenance, 05/26/20 9:11:00 EDT, [facility]/pharmacy #7111, Partial fill upon patient request if the prescription is for a schedule II opioid drug., 151.6, cm, 05/26/20 8:48:00 EDT, Height Start Date: 05/26/20 Status: Orderedfamotidine 20 mg oral tablet 1, tablet, By Mouth, Daily, # 90 tablet, Refills 1, Route to Pharmacy Electronically, [facility], 151.6, cm, 05/25/21 8:30:00 EDT, Height Start [...] tablet, Refills 0, Route to Pharmacy Electronically, [facility] 410[facility], 151.6, cm, 11/24/20 8:55:00 EDT, Height Start Date: 04/07/21 Status: OrderedLevemir FlexTouch 100 units/mL subcutaneous solution See Instructions, INJECT 55 UNITS SUBCUTANEOUSLY ONCE DAILY AT BEDTIME, # 45 Unknown, 2 [facility], cm, 11/24/20 8:55:00 EDT, Height Start Date: 02/11/21 Status: Orderedlevothyroxine 0.137 mg oral tablet 1 tablet, By Mouth, Daily, # 90 tablet, 1 Refills, [facility], 151.6, cm, 05/25/21 8:30:00 EDT,Height Start Date: 08/17/21 Status: OrderedNovoLOG FlexPen 100 units/mL injectable solution See Instructions, INJECT SUBCUTANEOUSLY ONCE DAILY PER SLIDING SCALE, MAX OF 24 UNITS DAILY, # 15 Unknown, 1 Refills, [facility], 151.6, cm, 05/26/20 8:48:00 EDT, Height Start [...] of amlodipi... Start Date: 08/24/21 Status: OrderedPen [place], 31 G x 5 mm BD Ultra Fine III See Instructions, # 100 each, Refills 5, Tot. Refills 5, Maintenance, Use as daily with insulin Dx: Type 2 DM, E11.9, 11/24/20 9:52:00 EDT, Compound, 151.6, cm, 11/24/20 8:55:00 EDT, Height Start Date: 11/24/20 Stop Date: 05/23/21 Status: OrderedPotassium Chloride (Gni-Spse-Bye 10) 10 mEq oral tablet, extended release 2 tablet, By Mouth, Daily, # 180 tablet, 3 Refills, Maintenance, 09/23/20 15:36:00 EDT, [facility], 151.6, cm, 05/26/20 8:48:00 EDT, Height Start Date: 09/23/20 Status: Orderedpravastatin 40 mg oral tablet 1 tablet, By Mouth, Daily, # 90 tablet, 1 Refills, [facility], 151.6, cm, 05/25/21 8:30:00 EDT,Height Start Date: [...]
--- OUTSIDE RECORDS SUMMARY | 2021-11-07 17:04 | XMS_ITS | Continuity of Care Document ---
:1935 Author Organization [facility] Adult Address [address] [place] [address]- Care Team Providers Name Role Phone Shelly Smith NP Primary Care Physician [place] [facility] [place] 06/02/20 [facility] Adult [address] [place] [id number]- Encounter Diagnosis Cerebral infarction, chronic (Discharge Diagnosis) - 05/26/20 Diabetic nephropathy (Discharge Diagnosis) - 05/26/20 Esophageal spasm (Discharge Diagnosis) - 05/26/20 Hypercholesterolemia (Discharge Diagnosis) - 05/26/20 Hypertension (Discharge Diagnosis) - 05/26/20 Type 2 diabetes mellitus (Discharge Diagnosis) - 05/26/20 Type 2 diabetes mellitus (Discharge Diagnosis) - 05/26/20 Unspecified Hypothyroidism (Discharge Diagnosis) - 05/26/20 Attending Physician: Shelly Smith NP Allergies, Adverse [...] tetanus-diphtheria toxoids (Td) 03/23/10 Given 1Result Comment: [id number] Note: [facility] [id number] History: [facility] Result Comment: [10/25/2014] HIGH [id number] Note: BQC4Xkoht Note: Uoqehwhj8Jfivi Note: Mzcblxc2Pbovq Note: tlh4Inbeh Note: Had hx of Xjxjhlwe03Xdgps Note: [facility] high dose Medications amLODIPine 10 mg oral tablet 1 tablet, By Mouth, Daily, # 90 tablet, 0 Refills, Maintenance, 04/17/20 7:21:00 EST, [facility], 151.6, cm, 11/23/19 8:48:00 EDT, Height Start Date: 04/17/20 Status: Orderedclopidogrel 75 mg oral tablet 1, tablet, By Mouth, Daily, # 90 tablet, Refills 0, Tot. Refills 0, Maintenance, 04/15/20 15:29:00 EST, Route to Pharmacy Electronically, [facility] [address], 151.6, cm, 11/23/19 8:48:00 EDT, Height Start Date: 04/15/20 Status: OrderedCranberry 0 Refills, Maintenance, 12/25/17 9:50:30 EST Start Date: 12/25/17 Status: Ordereddocusate sodium 50 mg oral capsule 1 capsule = 50 mg, By Mouth, 2 times a day, # 60 capsule, 0 Refills, Maintenance, 05/26/20 9:11:00 EDT, [facility]/pharmacy #[id number], Partial fill upon patient request if the prescription is for a schedule II opioid drug., 151.6, cm, 05/26/20 8:48:00 EDT, Height Start Date: 05/26/20 Status: Orderedfamotidine 20 mg oral tablet 20 mg, 1, tablet, By Mouth, Daily, # 90 tablet, Refills 0, Tot. Refills 0, Maintenance, 04/14/20 16:19:00 EST, Route to Pharmacy Electronically, [facility]/pharmacy #[id number], 151.6, cm, 11/23/19 8:48:00 EDT, Height Start Date: 04/14/20 Status: Orderedhydrochlorothiazide 25 mg oral tablet 25 mg, 1, tablet, By Mouth, Daily, # 90 tablet, Refills 0, Tot. Refills 0, Maintenance, 04/15/20 10:15:00 EST, Route to Pharmacy Electronically, [facility]/pharmacy #[id number], 151.6, cm, 11/23/19 8:48:00 EDT, Height Start Date: 04/15/20 Status: OrderedLevemir FlexTouch 100 units/mL subcutaneous solution = 50 units, Subcutaneous Injection, Daily at bedtime, # 45 mL, 1 Refills, Maintenance, 01/22/20 13:15:00 EST, [facility]/pharmacy #[id number], 151.6, cm, 11/23/19 8:48:00 EDT, Height Start Date: 01/22/20 Stop Date: 07/20/20 Status: Orderedlevothyroxine 0.112 mg oral tablet 1 tablet = 112 mcg, By Mouth, Daily, # 90 tablet, 3 Refills, Maintenance, 10/10/19 10:45:00 EDT, Tablet, [facility]/pharmacy #[id number], 151.6, cm, 08/13/19 9:18:00 EDT, Height, 82.1, kg, 11/28/17 5:31:00 EDT, DryWeight Start Date: 10/10/19 Status: OrderedNovoLOG FlexPen 100 units/mL subcutaneous solution See Instructions, INJECT SUB Q PER SLIDING SCALE. MAX 24 UNITS DAILY, # 1 each, 1 Refills, Maintenance, 10/30/19 9:45:00 EDT, Injection, [facility]/pharmacy #[id number], 151.6, cm, 08/13/19 9:18:00 EDT, [...] Dry Weight Start Date: 07/09/19 Status: OrderedPen [place], 31 G x 5 mm BD Ultra [...] Refills, Maintenance, 10/08/19 12:26:00 EDT, ER Tablet, [facility]/pharmacy #[id number], 151.6, cm, 08/13/19 9:18:00 EDT, Height, 82.1, kg, 11/28/17 5:31:00 EDT, Dry Weight Start Date: 10/08/19 Status: Orderedpravastatin 40 mg oral tablet 1 tablet = 40 mg, By Mouth, Daily, # 90 tablet, 3 Refills, Maintenance, 07/09/19 11:11:00 EDT, Tablet, [facility]/pharmacy #[id number], 151.6, cm, 11/17/18 14:59:00 EDT, [...] Informant Dates Status Service Cerebral infarction, Discharge 05/26/20 chronic Diagnosis Diabetic nephropathy Discharge 05/26/20 Diagnosis Esophageal spasm Discharge 05/26/20 Diagnosis Hypercholesterolemia Discharge 05/26/20 Diagnosis Hypertension Discharge 05/26/20 Diagnosis Type 2 diabetes mellitus Discharge 05/26/20 Diagnosis Type 2 diabetes mellitus Discharge 05/26/20 Diagnosis Unspecified Discharge 05/26/20 Hypothyroidism Diagnosis Vital Signs Most recent to oldest [Reference Range]: 1 2 Height 151.6 cm 151.6 cm (05/26/20 8:48 AM) (05/26/20 8:19 AM) Weight 93.1 kg (05/26/20 8:19 AM) Oxygen Saturation [94-100 %] 97 % (05/26/20 8:19 AM) Pulse Rate [55-90 bpm] 78 bpm (05/26/20 8:19 AM) Body Mass Index [18.5-24.99] 40.51 *>HHI* (05/26/20 8:19 AM) Blood Pressure [90-138/55-84 mm Hg] 112/62 mm Hg 123/ 66 mm Hg (05/26/20 8:48 AM) (05/26/20 8:19 AM) Mode of Delivery (Oxygen) Room air (05/26/20 8:19 AM) Blood pressure sites Arm, left Arm, right (05/26/20 8:48 AM) (05/26/20 8:19 AM) Weight Obtained Via Standing scale (05/26/20 8:19 AM) Social History Social History Type Response Smoking Status Never (less than 100 in life time) entered on: 11/23/19 Sex
--- OUTSIDE RECORDS SUMMARY | 2021-11-07 17:04 | XMS_ITS | Continuity of Care Document ---
:1935 Author Organization [facility] Adult Address [address] [place] [address]- Care Team Providers Name Role Phone Shelly Simth NP Primary Care Physician Encounter [facility] [place] Date(s): 10/15/21 - 10/22/21 [facility] Adult [address] [place] [id number]- Encounter Diagnosis Type 2 diabetes mellitus (Discharge Diagnosis) - 10/15/21 Attending Physician: Shelly Smith NP Allergies, Adverse [...] pneumococcal 23-valent vaccine 01/18/11 Given 1Result Comment: [facility] [id number] Comment: [id number] Note: [facility] [id number] History: [id number] Comment: [10/25/2014] HIGH BLZU3Vdzcn Note: GBJ1Ilnzg Note: Aatcptpu1Xfenm Note: Jqvdlnr9Sqlhw Note: hgw45Xtexl Note: Had hx of Arubeabv53Eansm Note: [facility] high dose Medications amLODIPine 10 mg oral tablet 1 tablet, By Mouth, Daily, # 90 tablet, 1 Refills, [facility]294, 151.6, cm, 05/25/21 8:30:00 EDT,Height Start Date: 07/20/21 Status: Orderedclopidogrel 75 mg oral tablet 1, tablet, By Mouth, Daily, # 90 tablet, Refills 3, Route to Pharmacy Electronically, [facility] [address]54, 151.6, cm, 11/24/20 8:55:00 EDT, Height Start [...] capsule, 0 Refills, Maintenance, 05/26/20 9:11:00 EDT, [facility]/pharmacy #[id number], Partial fill upon patient request if the prescription is for a schedule II opioid drug., 151.6, cm, 05/26/20 8:48:00 EDT, Height Start Date: 05/26/20 Status: Orderedfamotidine 20 mg oral tablet 1, tablet, By Mouth, Daily, # 90 tablet, Refills 1, Route to Pharmacy Electronically, [facility] [address]23, 151.6, cm, 05/25/21 8:30:00 EDT, Height Start Date: 07/20/21 Status: OrderedFreestyle [place] Sensor See Instructions, # 1 each, Maintenance, use as directed for Type 2 Diabetes Mellitus E11.9, 05/27/21 8:48:00 EDT, Supply, 151.6, cm, 05/25/21 8:30:00 EDT, Height Start Date: 05/27/21 Stop Date: 06/26/21 Status: Orderedfurosemide 40 mg oral tablet 40 mg, 1, tablet, By Mouth, Daily, Refills 0, Maintenance, 10/15/21 11:19:00 EDT, Partial fill upon patient request if the prescription is for a schedule II opioid drug. Start Date: 10/15/21 Status: OrderedLevemir FlexTouch 100 units/mL subcutaneous solution See Instructions, IINJECT 60 UNITS SUBCUTANEOUSLY ONCE DAILY AT BEDTIME, # 45 Unknown, 2 Refills, [facility] STORE [address]99, 151.6, cm, 11/24/20 8:55:00 EDT, Height Start Date: 02/11/21 Status: Orderedlevothyroxine 0.137 mg oral tablet 1 tablet, By Mouth, Daily, # 90 tablet, 1 Refills, [facility] ST[facility] [address]05, 151.6, cm, 05/25/21 8:30:00 EDT,Height Start Date: 08/17/21 Status: OrderedNovoLOG FlexPen 100 units/mL injectable solution See Instructions, INJECT SUBCUTANEOUSLY ONCE DAILY PER SLIDING SCALE, MAX OF 24 UNITS DAILY, # 15 Unknown, 1 Refills, [facility] ST[facility] [address]186, 151.6, cm, 05/26/20 8:48:00 EDT, Height Start [...] Dry Weight Start Date: 07/09/19 Status: OrderedPen [place], 31 G x 5 mm BD Ultra Fine III See Instructions, # 100 each, Refills 5, Tot. Refills 5, Maintenance, Use as daily with insulin Dx: Type 2 DM, E11.9, 11/24/20 9:52:00 EDT, Compound, 151.6, cm, 11/24/20 8:55:00 EDT, Height Start Date: 11/24/20 Stop Date: 05/23/21 Status: OrderedPotassium Chloride (Zet-Ggmq-Fhg 10) 10 mEq oral tablet, extended release 2 tablet, By Mouth, Daily, # 180 tablet, 3 Refills, [facility] ST[facility] 89291, 151.6, cm, 05/25/21 8:30:00 EDT, Height Start Date: 09/14/21 Status: Orderedpravastatin 40 mg oral tablet 1 tablet, By Mouth, Daily, # 90 tablet, 1 Refills, [facility] ST[facility] 64826, 151.6, cm, 05/25/21 8:30:00 EDT,Height Start Date: [...] Type Effective Dates [facility] Type 2 diabetes Discharge 10/15/21 mellitus Diagnosis Vital Signs Most recent to oldest [Reference Range]: 1 Height 151.6 cm (10/15/21 10:07 AM) Social History Social History Type Response Smoking Status Never (less than 100 in life time) entered on: 11/23/19 Sex Care Team PersonnelName: Luis ASHLEY, Shelly Villareal Address: [address] [place] [address] [address] [place], [place] [address]
[2021-11-07 17:44] LABS: MANUAL DIFF FLAG NO
[2021-11-07 17:46] VITALS: BP 131/57; PULSE 86; RESP 16; TEMP 36.7; O2SAT 98
[2021-11-07 17:47] LABS: Basophils Absolute Auto 0.1 X10*3/uL (0.0-0.2); Basophils Percent Auto 0.9 % (0-2); Eosinophils Absolute Auto 0.3 X10*3/uL (0.0-0.4); Eosinophils Percent Auto 3.9 % (0-4); Hematocrit 36.7 % (37.0-47.0); Hemoglobin 11.5 g/dl (12.0-16.0); Imm Gran Abs Auto 0.05 X10*3/uL (0.00-0.03); Imm Gran Pct Auto 0.6 % (0.0-0.4); Lymphocytes Absolute Auto 1.4 X10*3/uL (1.2-4.9); Lymphocytes Percent Auto 16.8 % (20-40); Mean Corpuscular HGB Conc 31.3 g/dl (31.0-35.0); Mean Corpuscular Hemoglobin 26.8 pg (27.0-33.0); Mean Corpuscular Volume 85.5 fL (80.0-98.0); Mean Platelet Volume 12.5 fL (9.4-12.3); Monocytes Absolute Auto 0.7 X10*3/uL (0.1-1.2); Monocytes Percent Auto 7.9 % (2-11); Neutrophils Absolute Auto 5.9 x10*3/uL (2.0-8.3); Neutrophils Percent Auto 69.9 % (45-73); Platelet Count 263 X10*3/uL (160-400); Red Blood Count 4.29 X10*6/uL (4.20-5.50); Red Cell Distribution Width 13.6 % (11.0-16.0); White Blood Count 8.4 X10*3/uL (4.8-10.8)
[2021-11-07 17:51] LABS: Appearance Urine Clear; Color Urine Yellow; Glucose Urine UA Negative (Negative); Leukocyte Esterase Urine Trace (Negative); Nitrite Urine Negative (Negative); PH 6.5 (5.0-9.0); Specific Gravity - Urine <= 1.005 (1.005-1.025); UMIC TRIGGER UACC YES; Urine Blood Negative (Negative); Urine Ketones Negative (Negative); Urine Protein Negative (Neg-Trace)
[2021-11-07 17:53] LABS: Bacteria Urine None Seen (None Seen); Hyaline Casts Urine 0-2 /LPF (0-2); RBC Urine 0-2 /HPF (0-2); Squamous Epithelial Cell Urine 0-2 /HPF (0-2); WBC Urine 0-5 /HPF (0-5)
[2021-11-07 17:54] LABS: COVID-19 Test Positive (Negative); IDNOW Serial# 16C4AD1C
[2021-11-07 18:01] LABS: Alanine Aminotransferase 12 U/L (0-31); Albumin Level 4.1 g/dL (3.5-5.0); Alkaline Phosphatase 155 U/L (39-117); Anion Gap 19 (12-20); Aspartate Amino Transferase 21 U/L (5-31); Bilirubin Total 0.4 mg/dL (0.0-1.0); Blood Urea Nitrogen 35 mg/dL (9-16); Calcium 9.1 mg/dL (8.4-10.2); Carbon Dioxide 22 mmol/L (22-29); Chloride 100 mmol/L (96-108); Creatinine Clr Calc Pharmacy 25.1; Estimated Glomerular Filt Rate 30; Glucose Random 137 mg/dL (60-115); Potassium 4.4 mmol/L (3.3-5.1); Sodium 137 mmol/L (135-145); Total Protein 6.8 g/dL (6.5-8.0)
--- NOTE | 2021-11-07 18:56 | PC.NURSE ---
PATIENT HAD SNACKS AND COFFEE .
[2021-11-07] MEDS: 0.9 % Sodium Chloride 1,000 ML 999 ML IV (19:43)
[2021-11-07 20:00] VITALS: BP 150/60; PULSE 78; RESP 16; TEMP 36.5; O2SAT 98
[2021-11-07 20:52] VITALS: BP 156/52; PULSE 80; RESP 18; TEMP 36.8; O2SAT 96
== END 2021-11-07 21:13 | disposition home or self-care (01) ==
PROVIDERS: Emergency Provider Internal Medicine; PCP Nurse Practitioner Family
DX: U07.1 COVID-19 (principal); E11.65 Type 2 diabetes mellitus with hyperglycemia; N17.9 Acute kidney failure, unspecified; Z79.4 Long term (current) use of insulin
CPT/HCPCS: 36415; 80053; 81001; 82947; 83735; 85025; 87635; 96360; 99283; 99284

== ENCOUNTER 2022-07-31 18:26 | Inpatient (IN) | payer MEDICARE, SELFPAY ==
--- NOTE | ~2022-07-31 | CT_ITS ---
EXAMINATION: CT ABDOMEN AND PELVIS WITHOUT CONTRAST CLINICAL INFORMATION: Abdominal pain with question of diverticula COMPARISON: CT abdomen pelvis 07/15/2018 TECHNIQUE: Multidetector volumetric imaging was performed from the superior aspect of the liver through the pubic symphysis. Sagittal and coronal reformats were performed. This CT examination was performed using dose optimization techniques as appropriate, variously including the following: *Automated exposure control *Adjustment of mA and/or kV according to patient size (this includes techniques or standardized protocols for targeted exams where dose is matched to indication/reason for exam; i.e. extremities or head) *Use of iterative reconstruction technique DLP: 667 mGy-cm FINDINGS: LUNG BASES: Scarring is present at the lung bases. Heart is mildly enlarged. Coronary calcification is present LIVER, GALLBLADDER, AND BILIARY TREE: The liver is normal in size, shape, and attenuation. No focal hepatic lesion or biliary ductal dilatation is present. The gallbladder is unremarkable with no evidence of radiopaque gallstones, gallbladder wall thickening, or obvious pericholecystic inflammatory changes. PANCREAS: There is fatty atrophy of the pancreas. Around the pancreas, there are number of fluid collections seen with one in the gastrohepatic ligament measuring 3.7 x 2.8 x 2.1 cm (2:22 along with 2 smaller collections near the pancreatic tail measuring 1.4 and 0.7 cm. When comparison is made to the prior study from 2019, there has been no interval change.. SPLEEN: Unremarkable. ADRENAL GLANDS: Both adrenal glands are thickened similar to 2019 KIDNEYS AND URETERS: The kidneys are normal in size, shape, and attenuation. A benign 2 cm cm Bosniak class I right renal cyst is noted which requires no additional imaging or follow-up. No solid renal masses are seen. No hydronephrosis, hydroureter, or calculi seen. No perinephric stranding. BLADDER: Unremarkable. GASTROINTESTINAL TRACT: There are extensive diverticular disease is seen in the sigmoid colon with scattered diverticula elsewhere. There is no evidence of diverticulitis. Patient appears to be status post GI surgery in the previously seen grossly abnormal loops of small bowel which had been present with free air at the time of the 07/15/2018 study are no longer seen. An enteric anastomosis is present in the right lower quadrant. There is no evidence of small bowel obstruction. There is no evidence of diverticulitis. No free air. No pneumatosis. ABDOMINAL WALL: No significant hernia is appreciated. LYMPH NODES: No retroperitoneal lymphadenopathy. VASCULAR: Extensive vascular calcifications are seen in the aorta and iliofemoral vessels as well as all branches. No aneurysms. PELVIC VISCERA: The uterus and adnexa are unremarkable. OSSEOUS STRUCTURES: Severe degenerative changes are present throughout the spine with relative sparing at L3-L4. No bony destructive lesions are seen. There is grade 1 anterolisthesis of L4 upon L5. There is near bony fusion of L1 and L2. CT/CT abdomen pelvis wo IV con IMPRESSION: 1. There is extensive colonic diverticulosis but no evidence of diverticulitis. 2. Previously seen abnormal loops of small bowel have been resected. 3. Stable fluid collections around the pancreas. 4. Other incidental findings as described above including stable bilateral adrenal gland thickening, severe degenerative changes in the spine and extensive vascular calcifications. Fleischner guidelines were followed.
--- NOTE | 2022-07-31 18:33 | ED.ABDPAIN ---
HPI - Abdominal Pain General Chief Complaint: Nausea/Vomiting/Diarrhea Stated Complaint: abd pain Time Seen by Provider: 07/31/22 18:32 Source: patient and EMS Mode of arrival: EMS Limitations: no limitations History of Present Illness HPI narrative: Patient came from long term for increased nausea since early today no vomiting diarrhea 2 times complaining of diffuse a especially left lower abdomen no fever no chills no urinary symptom Related Data Allergies Allergy/AdvReac Type Severity Reaction Status Date / Time Sulfa (Sulfonamide Allergy Unknown NAUSEA & Verified 07/31/22 19:47 Antibiotics) VOMITING [SULFA (SULFONAMIDE ANTIBIOTICS)] Review of Systems Review of Systems Yes all other systems are reviewed and are negative PMFSH Social History Social History Smoked in Last 30 Days: No Advance Directives: No Advance Directives Information Provided: Yes Physical Exam ED Vital Signs: Vital Signs - 24 hr 07/31/22 18:49 07/31/22 20:03 Temperature 99 F 97.9 F Pulse Rate 87 89 Respiratory Rate 16 16 Blood Pressure 139/40 L 127/43 L Pulse Oximetry 95 95 Oxygen Delivery Method Room Air Room Air BMI result Body Mass Index 33.8 Appearance: Alert. Oriented X2-3. No acute distress. Eyes: No pallor or icterus ENT: Pharynx normal. Oral Mucosa moist Neck: Normal inspection. Neck supple. CVS: Normal heart rate and rhythm. Pulses normal. Respiratory: No respiratory distress. Equal air entry bilateral, no wheezing/rales/rhonchi Abdomen: Soft, diffuse tenderness especially in left lower quadrant with guarding no rebound tenderness Bowel sounds are present, no mass palpable, no CVA tenderness Skin: Skin warm and dry. Normal skin color. Normal skin turgor. Extremities: No lower extremity edema. No calf tenderness Neuro: Oriented X 2-3. No motor deficit. No sensory deficit.No cerebellar signs , cranial nerves II-XII intact Medical Decision Making Medical Decision Making [facility] Narrative: 1145 Patient with lower abdominal pain with his significant nausea came from assisted living place but not sleeping all day did not eat much had significant nausea no fever workup showed diverticulosis without diverticulitis a CT scan has significant leukocytosis of 20 K with left shift normal lactic acid level patient is still not feeling good does want to drink or anything at this time will check the UA likely the cause contributing to her nausea and discomfort 130: UA showed WBC clumps likely the cause of leukocytosis lethargic and nausea along with diverticulosis will admit patient for symptomatic UTI Consult Healthcare Provider Management of the patient was discussed with: Hospitalist Lab Data [facility] Lab Attestation statement: I reviewed the patient's lab results. 07/31/22 20:05 07/31/22 20:05 Labs: Lab Results 07/31/22 07/31/22 07/31/22 Range/Units 20:05 20:05 22:15 WBC 20.0 H (4.8-10.8) X10*3/uL RBC 4.10 L (4.20-5.50) X10*6/uL Hgb 11.3 L (12.0-16.0) g/dl Hct 34.7 L (37.0-47.0) % MCV 84.6 (80.0-98.0) fL MCH 27.6 (27.0-33.0) pg MCHC 32.6 (31.0-35.0) g/dl RDW 13.4 (11.0-16.0) % Plt Count 245 (160-400) X10*3/uL MPV 12.9 H (9.4-12.3) fL Immature Gran % (Auto) 0.7 H (0.0-0.4) % Neut % (Auto) 88.4 H (45-73) % Lymph % (Auto) 4.5 L (20-40) % [place] % (Auto) 6.2 (2-11) % Eos % (Auto) 0.0 (0-4) % Baso % (Auto) 0.2 (0-2) % Lymph # (Auto) 0.9 L (1.2-4.9) X10*3/uL [place] # (Auto) 1.2 (0.1-1.2) X10*3/uL Eos # (Auto) 0.0 (0.0-0.4) X10*3/uL Baso # (Auto) 0.0 (0.0-0.2) X10*3/uL Abs Immat Gran (auto) 0.15 H (0.00-0.03) X10*3/uL Absolute Neuts (auto) 17.7 H (2.0-8.3) x10*3/uL Absolute Nucleated RBC 0.000 (0.0-0.012) X10*3/uL Nucleated RBC % (auto) 0.0 (0.0-0.2) /100WBC Sodium 138 (135-145) mmol/L Potassium 4.2 (3.3-5.1) mmol/L Chloride 99 (96-108) mmol/L Carbon Dioxide 27 (22-29) mmol/L Anion Gap 16 (12-20) BUN 35 H (9-16) mg/dL Creatinine 1.39 (0.5-1.4) mg/dL Estim Creat Clear Calc 31.4 Estimated GFR 36 Random Glucose 134 H (60-115) mg/dL Lactic Acid 0.7 (0.5-2.0) mmol/L Calcium 10.0 D (8.4-10.2) mg/dL Total Bilirubin 0.7 (0.0-1.0) mg/dL AST 27 (5-31) U/L ALT 11 (0-31) U/L Alkaline Phosphatase 119 H (39-117) U/L Total Protein 6.9 (6.5-8.0) g/dL Albumin 3.6 (3.5-5.0) g/dL Lipase < 4 L (8-78) U/L Urine Color Urine Appearance Urine pH (5.0-9.0) Ur Specific [place] (1.005-1.025) Urine Protein (Neg-Trace) mg/dL Urine Glucose (UA) (Negative) mg/dL Urine Ketones (Negative) mg/dL Urine Blood (Negative) Urine Nitrite (Negative) Ur Leukocyte Esterase (Negative) Urine RBC (0-2) /HPF Urine WBC (0-5) /HPF Urine WBC Clumps Ur Squamous Epith Cells (0-2) /HPF Urine Bacteria (None Seen) Hyaline Casts (0-2) /LPF 08/01/22 Range/Units 00:45 WBC (4.8-10.8) X10*3/uL RBC (4.20-5.50) X10*6/uL Hgb (12.0-16.0) g/dl Hct (37.0-47.0) % MCV (80.0-98.0) fL MCH (27.0-33.0) pg MCHC (31.0-35.0) g/dl RDW (11.0-16.0) % Plt Count (160-400) X10*3/uL MPV (9.4-12.3) fL Immature Gran % (Auto) (0.0-0.4) % Neut % (Auto) (45-73) % Lymph % (Auto) (20-40) % [place] % (Auto) (2-11) % Eos % (Auto) (0-4) % Baso % (Auto) (0-2) % Lymph # (Auto) (1.2-4.9) X10*3/uL [place] # (Auto) (0.1-1.2) X10*3/uL Eos # (Auto) (0.0-0.4) X10*3/uL Baso # (Auto) (0.0-0.2) X10*3/uL Abs Immat Gran (auto) (0.00-0.03) X10*3/uL Absolute Neuts (auto) (2.0-8.3) x10*3/uL Absolute Nucleated RBC (0.0-0.012) X10*3/uL Nucleated RBC % (auto) (0.0-0.2) /100WBC Sodium (135-145) mmol/L Potassium (3.3-5.1) mmol/L Chloride (96-108) mmol/L Carbon Dioxide (22-29) mmol/L Anion Gap (12-20) BUN (9-16) mg/dL Creatinine (0.5-1.4) mg/dL Estim Creat Clear Calc Estimated GFR Random Glucose (60-115) mg/dL Lactic Acid (0.5-2.0) mmol/L Calcium (8.4-10.2) mg/dL Total Bilirubin (0.0-1.0) mg/dL AST (5-31) U/L ALT (0-31) U/L Alkaline Phosphatase (39-117) U/L Total Protein (6.5-8.0) g/dL Albumin (3.5-5.0) g/dL Lipase (8-78) U/L Urine Color Yellow Urine Appearance Cloudy Urine pH 5.5 (5.0-9.0) Ur Specific [place] 1.015 (1.005-1.025) Urine Protein Trace (Neg-Trace) mg/dL Urine Glucose (UA) Negative (Negative) mg/dL Urine Ketones Negative (Negative) mg/dL Urine Blood Small (1+) H (Negative) Urine Nitrite Negative (Negative) Ur Leukocyte Esterase Moderate (2+) H (Negative) Urine RBC 0-2 (0-2) /HPF Urine WBC >50 H (0-5) /HPF Urine WBC Clumps Present Ur Squamous Epith Cells 0-2 (0-2) /HPF Urine Bacteria 4+ (None Seen) Hyaline Casts 0-2 (0-2) /LPF Radiology Impression Discussion of test interpretation with radiology: I have reviewed the radiologist's reading. Radiologist Impression: CT/CT abdomen pelvis wo IV con IMPRESSION: 1.? There is extensive colonic diverticulosis but no evidence of diverticulitis. 2.? Previously seen abnormal loops of small bowel have been resected. 3.? Stable fluid collections around the pancreas. 4.? Other incidental findings as described above including stable bilateral adrenal gland thickening, severe degenerative changes in the spine and extensive vascular calcifications. Medications Administered Discontinued Medications Generic Name Dose Route Start Last Admin Trade Name Freq PRN Reason Stop Dose Admin Sodium Chloride 1,000 mls @ 999 mls/hr 07/31/22 19:03 07/31/22 23:25 Ns IV 07/31/22 20:03 Infused .Q1H1M ONE Infusion Piperacillin Sod/Tazobactam 50 mls @ 100 mls/hr 07/31/22 22:02 07/31/22 23:24 Sod 3.375 gm/ Sodium Chloride IV 07/31/22 22:31 100 mls/hr ONCE ONE Administration Morphine Sulfate 2 mg 07/31/22 19:03 07/31/22 23:24 Morphine Sulfate 2 Mg/Ml Cartridge IVPUSH 07/31/22 19:04 Not Given ONCE ONE Protocol Ondansetron HCl 4 mg 07/31/22 19:03 07/31/22 19:50 Ondansetron Hcl 4 Mg/2 Ml Vial IVPUSH 07/31/22 19:04 4 mg ONCE ONE Administration Discharge Plan Discharge Clinical Impression: Acute UTI, Diverticulosis Patient Disposition: Admitted As Inpatient
[2022-07-31 18:49] VITALS: BP 128/90; BP 139/40; PULSE 83; PULSE 87; RESP 16; TEMP 37.2; O2SAT 95; O2SAT 99; BMI 33.8
[2022-07-31] MEDS: 0.9 % Sodium Chloride 1,000 ML 999 ML IV (19:48)
[2022-07-31] MEDS: ondansetron HCL 4 MG/2 ML VIAL IVPUSH (19:50)
[2022-07-31 20:03] VITALS: BP 127/43; PULSE 89; RESP 16; TEMP 36.6; O2SAT 95
--- OUTSIDE RECORDS SUMMARY | 2022-07-31 20:08 | XMS_ITS | Continuity of Care Document ---
Author Name Unknown Organization [facility] Address [address] [place] [address]- Care Team Providers Care Manufacturing Project Engineer Name Role Phone Luis STEEL POURER, Shelly Villareal Primary Care Physician [facility] Date(s): 05/24/22 - 06/23/22 [facility] [address] [place] [phone]- Allergies, Adverse Reactions, Alerts Substance Reaction Severity Status ciprofloxacin GI upset Active sulfADIAZINE Active Bactrim GI Upset Active Immunizations Given and Recorded Vaccine Date Status Refusal Reason influenza virus vaccine, inactivated 12/03/21 Kal rded influenza virus vaccine, inactivated 11/23/19 Kal rded influenza virus vaccine, inactivated 1 11/04/17 Gi daniel influenza virus vaccine, inactivated 2 10/27/16 Gi daniel influenza virus vaccine, inactivated 3, 4 10/23/14 Recorded influenza virus vaccine, inactivated 5 10/23/13 Gi daniel influenza virus vaccine, inactivated 6 11/11/12 Gi daniel influenza virus vaccine, inactivated 12/12/10 Give n influenza virus vaccine, inactivated 7 10/26/09 Gi daniel SARS-CoV-2 (COVID-19) mRNA BNT-162b2 vac 12/17/20 Recorded SARS-CoV-2 (COVID-19) mRNA BNT-162b2 vac 03/21/20 Recorded SARS-CoV-2 (COVID-19) mRNA BNT-162b2 vac 02/29/20 Recorded tetanus-diphtheria toxoids (Td) 8 11/24/20 Given tetanus-diphtheria toxoids (Td) 03/23/10 Given Zostavax (oldterm) 9 10/27/16 Given Zostavax (oldterm) 10 12/26/09 Given Influenza Vaccine (oldterm) 11 10/03/15 Given pneumococcal 13-valent vaccine 09/09/14 Given FluLaval (oldterm) 11/12/11 Given pneumococcal 23-valent vaccine 01/18/11 Given 1Result Comment: [id number] [facility] 4Result Comment: [10[facility]25[facility]2014] [facility]SE [facility] 6Admin Note: Declined 7Admin Note: [facility] 8Result Comment: [facility] [place] [id number] [facility] 10Admin Note: Had hx of Shingles 11Admin Note[facility] Medications amLODIPine 10 mg oral tablet 1 tablet, By Mouth, Daily, # 90 tablet, 1 Refills, Maintenance, 04/07/22 4:59:00 EST, [id number], 151.6, cm, 02/19/22 14:08:00 EST, Height Start Date: 04/07/22 Status: Ordered clopidogrel 75 mg oral tablet 1, tablet, By Mouth, Daily, # 90 tablet, Refills 3, Maintenance, 01/01/22 10:26:00 EST, Route to Pharmacy Electronically, [facility]401, 151.6, cm, 10/15/21 10:07:00 EDT, Height Start Date: 01/01/22 Status: Ordered Compression stockings 20-30 mmhg Compression stockings 20-30 mmhg, See Instructions, # 1 each, Refills 0, Tot. Refills 0, Maintenance, Dx: Bilateral lower ankle edema, 05/25/21 10:52:00 EDT, Supply Start Date: 05/25/21 Status: Ordered Cranberry 0 Refills, Maintenance, 12/25/17 9:50:30 EST Start Date: 12/25/17 Status: Ordered docusate sodium 50 mg oral capsule 1 capsule = 50 mg, By Mouth, 2 times a day, # 60 capsule, 0 Refills, Maintenance, 05/26/20 9:11:00 EDT, [facility]/pharmacy #[id number], Partial fill upon patient request if the prescription is for a schedule II opioid drug., 151.6, cm, 05/26/20 8:48:00 EDT, Height Start Date: 05/26/20 Status: Ordered famotidine 20 mg oral tablet 1, tablet, By Mouth, Daily, # 90 tablet, Refills 0, Maintenance, 04/07/22 4:59:00 EST, Route to [facility]acy Electronically, [facility], 151.6, cm, 02/19/22 14:08:00 EST, Height Start Date: 04/07/22 Status: Ordered Freestyle Francheska Monitor See Instructions, # 1 each, Refills 0, Tot. Refills 0, Maintenance, use as directed for Type 2 Diabetes Mellitus E11.9 To check blood sugar 4 times a day, 11/06/21 11:42:00 EDT, Supply, 151.6, cm, 10/15/21 10:07:00 EDT, Height Start Date: 11/06/21 Stop Date: 12/06/21 Status: Ordered Freestyle Francheska Sensor See Instructions, # 1 each, Refills 0, Tot. Refills 0, Maintenance, use as directed for Type 2 Diabetes Mellitus E11.9 To check blood sugar 4 times a day, 11/06/21 11:44:00 EDT, Supply, 151.6, cm, 10/15/21 10:07:00 EDT, Height Start Date: 11/06/21 Stop Date: 12/06/21 Status: Ordered furosemide 40 mg oral tablet 40 mg, 1, tablet, By Mouth, Daily, Refills 0, Maintenance, 10/15/21 11:19:00 EDT, Partial fill uponpatient request if the prescription is for a schedule II opioid drug. Start Date: 10/15/21 Status: Ordered Levemir 100 units/mL subcutaneous solution = 65 units, Subcutaneous Injection, Daily at bedtime, # 4 kit, 3 Refills, Maintenance, 06/16/22 11:19:00 EDT, Solution, [facility]/pharmacy #[id number], Levemir flex pen; 100 units/ml; Dispense 4 boxes, 151.6, cm, 02/19/22 14:08:00 EST, Height Start Date: 06/16/22 Stop Date: 06/11/23 Status: Ordered levothyroxine 0.137 mg oral tablet 1 tablet, By Mouth, Daily, # 90 tablet, 1 Refills, Maintenance, 02/07/22 14:39:00 EST, [facility], 151.6, cm, 10/15/21 10:07:00 EDT, Height Start Date: 02/07/22 Status: Ordered NovoLOG FlexPen 100 units/mL injectable solution See Instructions, INJECT SUBCUTANEOUSLY ONCE DAILY PER SLIDING SCALE, MAX OF 24 UNITS DAILY, # 15 Unknown, 1 Refills, [facility], 151.6, cm, 05/26/20 8:48:00 EDT, Height Start Date: 10/14/20 Status: Ordered One Touch Ultra 2 Glucose Meter See Instructions, # 1 each, Maintenance, used to test blood sugars QID DX: E11.9, Type 2 DM, 06/15/19 11:48:00 EDT, Supply, 151.6, cm, 11/17/18 14:59:00 EDT, Height, 82.1, kg, 11/28/17 5:31:00 EDT, Dry Weight Start Date: 06/15/19 Status: Ordered ONE TOUCH ULTRA BLUE TEST STRP ONE TOUCH ULTRA BLUE TEST STRP, See Instructions, # 200 Unknown, 5 Refills, Maintenance, USE TO TEST BLOOD SUGAR 3 TIMES A DAY, 151.6, cm, 05/26/20 8:48:00 EDT, Height Start Date: 08/11/20 Status: Ordered One Touch Ultra Test Strips See Instructions, # 200 each, Refills 11, Tot. Refills 11, Maintenance, USED TO TEST BLOOD SUGARS TID DX: E11.9 , TYPE 2 DM, 07/09/19 14:43:00 EDT, Compound, 151.6, cm, 11/17/18 14:59:00 EDT, Height,82.1, kg, 11/28/17 5:31:00 EDT, Dry Weight Start Date: 07/09/19 Status: Ordered Pen [place], 31 G x 5 mm BD Ultra Fine III See Instructions, # 100 each, Refills 5, Tot. Refills 5, Maintenance, Use as daily with insulin Dx:Type 2 DM, E11.9, 10/26/21 4:43:00 EDT, Compound, 151.6, cm, 10/15/21 10:07:00 EDT, Height Start Date: 10/26/21 Stop Date: 04/24/22 Status: Ordered Potassium Chloride (Lkw-Gqit-Pii 10) 10 mEq oral tablet, extended release 2 tablet, By Mouth, Daily, # 180 tablet, 3 Refills, [facility], 151.6, cm, 05/25/21 8:30:00 EDT, Height Start Date: 09/14/21 Status: Ordered pravastatin 40 mg oral tablet 1 tablet, By Mouth, Daily, # 90 tablet, 1 Refills, Maintenance, 05/23/22 9:17:00 EDT, [facility], 151.6, cm, 02/19/22 14:08:00 EST, Height Start Date: 05/23/22 Status: Ordered Vitamin D3 1000 intl units oral tablet 1 tablet = 1,000 International_Units, By Mouth, Daily, # 30 tablet, 0 Refills, Maintenance, 12/15/17 14:43:58 EST, Tablet Start Date: 12/15/17 Stop Date: 01/14/18 Status: Ordered Problem List Condition Confirmation Course Effective Dates Status Health Status Informant Diabetic nephropathy Confirmed Active Esophageal spasm Confirmed Active Cerebral infarction, chronic Confirmed Active Hypercholesterolemia Confirmed Active Hypertension Confirmed Active Severe obesity (BMI 35.0-39.9) with comorbidity Confirmed Active Type 2 diabetes mellitus Confirmed Active Type 2 diabetes mellitus Confirmed 02/19/16 Active 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 Confirmed Active Unspecified Hypothyroidism Confirmed 01/26/10 Active Social History Social History Type Response Smoking Status Never (less than 100 in lifetime) entered on: 11/23/19 Sex Patient Care team information Care Team Personnel Name: Luis ASHLEY, Shelly Villareal Position: [facility] PCO Associate Professional Member Role: PCP Address: Address: [address] [place] [address] [address] [place] [address]- Name: Janina Coy RN Position: [facility] RN Member Role: Primary Care Nurse Care Team Related Persons Name: KORI WATTERS Address: home [address] [place] [id number] Name: COREY OLSEN Address: [place] [address]
--- OUTSIDE RECORDS SUMMARY | 2022-07-31 20:08 | XMS_ITS | Continuity of Care Document ---
Author Name Unknown Organization [facility] Address [address] [place] [address]- Care Team Providers Care Pick Up Operator Name Role Phone Luis FLY FRAME TENDER, Shelly Villareal Primary Care Physician [facility]): 06[facility] - 07[facility]08/22 [facility] [address] [place] [phone]- Allergies, Adverse Reactions, Alerts Substance Reaction Severity [...] pneumococcal 23-valent vaccine 01/18/11 Given 1Result Comment: [id number] 2[facility]Result Comment: [10/25/2014] [facility]SE [facility] 6Admin Note: Declined 7Admin Note: [facility] 8Result Comment: [facility] [id number] [facility] 10Admin Note: Had hx of Shingles 11Admin Note[facility] Medications amLODIPine 10 mg oral tablet 1 tablet, By Mouth, Daily, # 90 tablet, 1 Refills, Maintenance, 04/07/22 4:59:00 EST, [facility] 76188, 151.6, cm, 02/19/22 14:08:00 EST, Height Start Date: 04/07/22 Status: Ordered clopidogrel 75 mg oral tablet 1, tablet, By Mouth, Daily, # 90 tablet, Refills 3, Maintenance, 01/01/22 10:26:00 EST, Route to Pharmacy Electronically, [facility] [address]43, 151.6, cm, 10/15/21 10:07:00 EDT, Height Start [...] capsule, 0 Refills, Maintenance, 05/26/20 9:11:00 EDT, [facility]/pharmacy #[id number], Partial fill upon patient request if the prescription is for a schedule II opioid drug., 151.6, cm, 05/26/20 8:48:00 EDT, Height Start Date: 05/26/20 Status: Ordered famotidine 20 mg oral tablet 1, tablet, By Mouth, Daily, # 90 tablet, Refills 0, Maintenance, 07/04/22 21:42:00 EDT, Route to [facility]acy Electronically, [facility], 151.6, cm, 02/19/22 14:08:00 EST, Height Start Date: 07/04/22 Status: Ordered Freestyle Francheska Monitor See Instructions, [...] 3 Refills, Maintenance, 06/16/22 11:19:00 EDT, Solution, [facility]/pharmacy #[id number], Levemir flex pen; 100 units/ml; Dispense 4 boxes, 151.6, cm, 02/19/22 14:08:00 EST, Height Start Date: 06/16/22 Stop Date: 06/11/23 Status: Ordered levothyroxine 0.137 mg oral tablet 1 tablet, By Mouth, Daily, # 90 tablet, 1 Refills, Maintenance, 02/07/22 14:39:00 EST, [facility], 151.6, cm, 10/15/21 10:07:00 EDT, Height Start Date: 02/07/22 Status: Ordered NovoLOG FlexPen 100 units/mL injectable solution See Instructions, INJECT SUBCUTANEOUSLY ONCE DAILY PER SLIDING SCALE, MAX OF 24 UNITS DAILY, # 15 Unknown, 1 Refills, [facility], 151.6, cm, 05/26/20 8:48:00 EDT, Height Start [...] Weight Start Date: 07/09/19 Status: Ordered Pen [place], 31 G x 5 mm BD Ultra Fine III See Instructions, # 100 each, Refills 5, Tot. Refills 5, Maintenance, Use as daily with insulin Dx:Type 2 DM, E11.9, 10/26/21 4:43:00 EDT, Compound, 151.6, cm, 10/15/21 10:07:00 EDT, Height Start Date: 10/26/21 Stop Date: 04/24/22 Status: Ordered Potassium Chloride (Fsy-[id number]-Nww 10) 10 mEq oral tablet, extended release 2 tablet, By Mouth, Daily, # 180 tablet, 3 Refills, [facility], 151.6, cm, 05/25/21 8:30:00 EDT, Height Start Date: 09/14/21 Status: Ordered pravastatin 40 mg oral tablet 1 tablet, By Mouth, Daily, # 90 tablet, 1 Refills, Maintenance, 05/23/22 9:17:00 EDT, [facility], 151.6, cm, 02/19/22 14:08:00 EST, Height Start [...] Personnel Name: Luis ASHLEY, Shelly Villareal Position: [facility] PCO Associate Professional Member Role: PCP Address: Address: [address] [place] [address] [address] [place] [address]- Name: Janina Coy RN Position: [facility] RN Member Role: Primary Care Nurse Care Team Related Persons Name: KORI WATTERS Address: home [address] [place] [id number] Name: COREY OLSEN Address: [place] [address]
--- OUTSIDE RECORDS SUMMARY | 2022-07-31 20:08 | XMS_ITS | Continuity of Care Document ---
Author Name Unknown Organization [facility] Address [address] [place] [address]- Care Team Providers Care Production Assembler Name Role Phone Luis ASHLEY, Shelly Villareal Primary Care Physician [place] [facility] [place] - 02/[place]/22 [facility] [address] [place] [address]- Encounter Diagnosis Encounter for Medicare annual wellness exam(Discharge Diagnosis) - 02/19/22 Cerebral infarction, chronic(Discharge Diagnosis) - 02/19/22 Diabetic nephropathy(Discharge Diagnosis) - 02/19/22 Esophageal spasm(Discharge Diagnosis) - 02/19/22 Hypercholesterolemia(Discharge Diagnosis) - 02/19/22 Hypertension(Discharge Diagnosis) - 02/19/22 Obese class II(Discharge Diagnosis) - 02/19/22 Type 2 diabetes mellitus(Discharge Diagnosis) - 02/19/22 Type 2 diabetes mellitus(Discharge Diagnosis) - 02/19/22 Unspecified Hypothyroidism(Discharge Diagnosis) - 02/19/22 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) - 02/19/22 Attending Physician: Shelly Smith NP Allergies, Adverse [...] pneumococcal 23-valent vaccine 01/18/11 Given 1Result Comment: [id number] [facility]Result Comment: [10/25/2014] [facility] 5[facility] 6Admin Note: Declined 7Admin Note: [facility] 8Result Comment: [facility] [id number] 9[facility] 10Admin Note: Had hx of Shingles 11Admin Note[facility] Medications amLODIPine 10 mg oral tablet 1 tablet, By Mouth, Daily, # 90 tablet, 0 Refills, Maintenance, 01/07/22 11:10:00 EST, [facility], 151.6, cm, 10/15/21 10:07:00 EDT, Height Start Date: 01/07/22 Status: Ordered clopidogrel 75 mg oral tablet 1, tablet, By Mouth, Daily, # 90 tablet, Refills 3, Maintenance, 01/01/22 10:26:00 EST, Route to Pharmacy Electronically, [facility]25, 151.6, cm, 10/15/21 10:07:00 EDT, Height Start [...] capsule, 0 Refills, Maintenance, 05/26/20 9:11:00 EDT, [facility]/pharmacy #[id number], Partial fill upon patient request if the prescription is for a schedule II opioid drug., 151.6, cm, 05/26/20 8:48:00 EDT, Height Start Date: 05/26/20 Status: Ordered famotidine 20 mg oral tablet 1, tablet, By Mouth, Daily, # 90 tablet, Refills 0, Maintenance, 01/07/22 11:10:00 EST, [facility] to [facility]ically[facility], 151.6, cm, 10/15/21 10:07:00 EDT, Height Start Date: 01/07/22 Status: Ordered Freestyle Francheska Monitor See Instructions, [...] drug. Start Date: 10/15/21 Status: Ordered Levemir FlexTouch 100 units/mL subcutaneous solution See Instructions, IINJECT 65 UNITS SUBCUTANEOUSLY ONCE DAILY AT BEDTIME, # 45 Unknown, 1 Refills, 11/06/21 11:06:00 EDT, [id number], 151.6, cm, 10/15/21 10:07:00 EDT, Height Start Date: 11/06/21 Status: Ordered levothyroxine 0.137 mg oral tablet 1 tablet, By Mouth, Daily, # 90 tablet, 1 Refills, Maintenance, 02/07/22 14:39:00 EST, [facility], 151.6, cm, 10/15/21 10:07:00 EDT, Height Start Date: 02/07/22 Status: Ordered nitrofurantoin macrocrystals 100 mg oral capsule 1 capsule = 100 mg, By Mouth, 2 times a day, for 7 days, # 14 capsule, 0 Refills, Acute 03/05/22 17:31:00 EST, 02/26/22 17:31:00 EST, Capsule, [facility]/pharmacy #[id number], Partial fill upon patient request ifthe prescription is for a schedule II opioid drug.,... Start Date: 02/26/22 Stop Date: 03/05/22 Status: Ordered NovoLOG FlexPen 100 units/mL injectable solution See Instructions, INJECT SUBCUTANEOUSLY ONCE DAILY PER SLIDING SCALE, MAX OF 24 UNITS DAILY, # 15 Unknown, 1 Refills, [facility], 151.6, cm, 05/26/20 8:48:00 EDT, Height Start [...] Weight Start Date: 07/09/19 Status: Ordered Pen Cisco, 31 G x 5 mm BD Ultra Fine III See Instructions, # 100 each, Refills 5, Tot. Refills 5, Maintenance, Use as daily with insulin Dx:Type 2 DM, E11.9, 10/26/21 4:43:00 EDT, Compound, 151.6, cm, 10/15/21 10:07:00 EDT, Height Start Date: 10/26/21 Stop Date: 04/24/22 Status: Ordered Potassium Chloride (Gnb-Nhkn-Tzr 10) 10 mEq oral tablet, extended release 2 tablet, By Mouth, Daily, # 180 tablet, 3 Refills, [facility], 151.6, cm, 05/25/21 8:30:00 EDT, Height Start Date: 09/14/21 Status: Ordered pravastatin 40 mg oral tablet 1 tablet, By Mouth, Daily, # 90 tablet, 1 Refills, Maintenance, 12/06/21 5:50:00 EDT, [id number], 151.6, cm, 10/15/21 10:07:00 EDT, Height Start Date: 12/06/21 Status: Ordered Vitamin D3 1000 intl units [...] Confirmed Active Unspecified Hypothyroidism Confirmed 01/26/10 Active Diagnosis Diagnosis Type Effective Dates Health Status Clinical Service Informant Encounter for Medicare annual wellness exam Discharge Diagnosis 02/19/22 Cerebral infarction, chronic Discharge Diagnosis 02/19/22 Diabetic nephropathy Discharge Diagnosis 02/19/22 Esophageal spasm Discharge Diagnosis 02/19/22 Hypercholesterolemia Discharge Diagnosis 02/19/22 Hypertension Discharge Diagnosis 02/19/22 Obese class II Discharge Diagnosis 02/19/22 Type 2 diabetes mellitus Discharge Diagnosis 02/19/22 Type 2 diabetes mellitus Discharge Diagnosis 02/19/22 Unspecified Hypothyroidism Discharge Diagnosis 02/19/22 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 Discharge Diagnosis 02/19/22 Vital Signs Most recent to oldest [Reference Range]: 1 2 Height 151.6 cm (02/19/22 2:08 PM) 151.6 cm (02/19/22 1:19 PM) Weight 87.9 kg (02/19/22 1:19 PM) Oxygen Saturation [94-100 %] 99 % (02/19/22 1:19 PM) Pulse Rate [55-90 bpm] 78 bpm (02/19/22 1:19 PM) Body Mass Index [18.5-24.99 kg/m2] 38.25 kg/m2 *>HHI* (02/19/22 1:19 PM) Blood Pressure [90-138/55-84 mm Hg] 110/ 58mm Hg (02/19/22 2:08 PM) 112/64mm Hg (02/19/22 1:19 PM) Temperature [96.8-100.4 DegF] 98.4 DegF (02/19/22 1:19 PM) Mode of Delivery (Oxygen) Room air (02/19/22 1:19 PM) Blood pressure sites Arm, left (02/19/22 2:08 PM) Arm, right (02/19/22 1:19 PM) Temperature Route Temporal (02/19/22 1:19 PM) Weight Obtained Via Standing scale (02/19/22 1:19 PM) Social History Social History Type Response Smoking Status Never (less than 100 in lifetime) entered on: 11/23/19 Sex Note * Corey Green: PERFORM, SIGN, VERIFY Event Display: Patient Education/Instruction Authored Date: [id number] [facility] Clinical Summary Name CAITLYN ROSS Age 87 Years 1935 PCP Lius ASHLEY, Shelly Villareal PCP [facility]# [phone] Visit Date 02/19/2022 13:14:00 Additional Instructions: Scheduled Appointments?? Future Appointments ?No Future Appointments Scheduled Follow-Up Instructions ?? Diagnosis Dyskinesia of esophagus; Body mass index [BMI] 35.0-35.9, adult; Pure hypercholesterolemia, unspecified; Essential (primary) hypertension; Type 2 diabetes mellitus without complications; Hypothyroidism, unspecified; Type 2 diabetes mellitus with diabetic nephropathy; Encounter for general adult medical examination without abnormal findings; Type 2 diabetes mellitus with diabetic chronic kidney disease; Personal history of transient ischemic attack (TIA), and cerebral infarction without residualdeficits; Type 2 diabetes mellitus without complications Medications: Please continue your medications until treatment is completed or stopped by your provider. Discuss any questions related to medications with your provider. Medications to Continue Taking That Have Changed These medications were not printed or sent to your pharmacy - Insulin Detemir (Levemir FlexTouch 100 units/mL subcutaneous solution) IINJECT 65 UNITS SUBCUTANEOUSLY ONCE DAILY AT BEDTIME. Refills: 1. Next Dose: Medications to Continue with No Changes These medications were not printed or sent to your pharmacy Amlodipine (amLODIPine 10 mg oral tablet) 1 tab(s) Oral Daily. Refills: 0. Next Dose: Cholecalciferol (Vitamin D3 1000 intl units oral tablet) 1 tab(s) Oral Daily for 30 Days. Refills: 0. Next Dose: Clopidogrel (clopidogrel 75 mg oral tablet) 1 tab(s) Oral Daily. Refills: 3. Next Dose: Cranberry Next Dose: Docusate (docusate sodium 50 mg oral capsule) 1 capsule Oral twice a day. Refills: 0. Next Dose: Durable Medical Equipment (Compression stockings 20-30 mmhg) Dx: Bilateral lower ankle edema. Refills: 0. Next Dose: Durable Medical Equipment (Freestyle Francheska Monitor) use as directed for Type 2 Diabetes Mellitus E11.9 To check blood sugar 4 times a day. Refills: 0. Next Dose: Durable Medical Equipment (Freestyle Francheska Sensor) use as directed for Type 2 Diabetes Mellitus E11.9 To check blood sugar 4 times a day. Refills: 0. Next Dose: Durable Medical Equipment (One Touch Ultra 2 Glucose Meter) used to test blood sugars QID DX: E11.9, Type 2 DM. Refills: 0. Next Dose: Durable Medical Equipment (One Touch Ultra Test Strips) USED TO TEST BLOOD SUGARS TID DX: E11.9 , TYPE 2 DM. Refills: 11. Next Dose: Durable Medical Equipment (Pen Cisco, 31 G x 5 mm BD Ultra Fine III) Use as daily with insulin Dx: Type 2 DM, E11.9. Refills: 5. Next Dose: Famotidine (famotidine 20 mg oral tablet) 1 tab(s) Oral Daily. Refills: 0. Next Dose: Furosemide (furosemide 40 mg oral tablet) 1 tab(s) Oral Daily. Next Dose: Insulin Aspart (NovoLOG FlexPen 100 units/mL injectable solution) INJECT SUBCUTANEOUSLY ONCE DAILY PER SLIDING SCALE, MAX OF 24 UNITS DAILY. Refills: 1. Next Dose: Levothyroxine (levothyroxine 0.137 mg oral tablet) 1 tab(s) Oral Daily. Refills: 1. Next Dose: Miscellaneous Rx (ONE TOUCH ULTRA BLUE TEST STRP) USE TO TEST BLOOD SUGAR 3 TIMES A DAY. Refills: 5. Next Dose: Potassium Chloride (Potassium Chloride (Uro-Mcxd-Wpy 10) 10 mEq oral tablet, extended release) 2 tab(s) Oral Daily. Refills: 3. Next Dose: Pravastatin (pravastatin 40 mg oral tablet) 1 tab(s) Oral Daily. Refills: 1. Next Dose: Allergy Info:?? Bactrim; sulfADIAZINE; ciprofloxacin Medications Given This Visit Future Orders ?Vitamin D 25 Hydroxy Level? Order Date:02/19/22?- Complete on or after?02/19/22 ?Basic Metabolic Panel? Order Date:02/19/22?- Complete on or after?02/19/22 ?Complete Urinalysis/Reflex Culture? Order Date:02/19/22?- Complete on or after?02/19/22 Vital Signs Height 151.6 cm Weight 87.9 kg BMI 38.25 kg/m2 Blood Pressure 110 mm Hg/58 mm Hg Temperature 98.4 DegF Pulse Rate 78 bpm Respiratory Rate 02 Sat Mode of Delivery 99 %/Room air You can now view a summary of your hospital visit from the comfort of your home through a free online portal called [employer]. [employer] is a website that allows you to securely view your medical information including discharge summary, medications and follow-up visits. ??You can alsosend a secure electronic message to your doctor???s office to request appointments, renew medications or just ask a question. You can enroll at [email or web address] or register during your next office visit. Disclaimer:?? The information provided is of a general nature and is intended to be used in conjunction with the recommendations and advice of your health care practitioner. ??Every effort has been made to ensure that the information provided is accurate and complete at the time it is provided to you however, as your needs change, or, as new ??information becomes available, different or additional instructions may be required. If you have questions, please consult with your primary care provider or pharmacist, as appropriate. ??This information is not intended to serve as substitution for assessment and evaluation by a qualified health care provider. If you do not have a primary care provider, you may find a [facility] provider by calling [facility] at [phone]. For information about the plan of care including goals and instructions for your diagnosis, please see the patient education orders section of this document. Patient Education Materials?? The content of this educational material or handout may have been modified, supplemented, or adapted from its original content and format to support your individualized medical care. Patient Care team information Care Team Personnel Name: Luis ASHLEY, Shelly Villareal Position: [facility] PCO Associate Professional Member Role: PCP Address: Address: [address] [place] [address] [address] [place] [address]- Name: Janina Coy RN Position: [facility] RN Member Role: Primary Care Nurse Care Team Related Persons Name: KORI WATTERS Address: home [address] [place] [address] Name: COREY OLSEN Address: [place] [address]
--- OUTSIDE RECORDS SUMMARY | 2022-07-31 20:09 | XMS_ITS | Continuity of Care Document ---
Author Name Unknown Organization [facility] Address [address] [place] [address]- Care Team Providers Care Tentmaker Name Role Phone Luis AIRCRAFT STRUCTURAL REPAIR MECHANIC, Shelly Villareal Primary Care Physician Encounter [facility] Date(s): 02/25/22 - 03/27/22 [facility] [address] [place] [address]- Allergies, Adverse Reactions, Alerts Substance Reaction Severity [...] pneumococcal 23-valent vaccine 01/18/11 Given 1Result Comment: [id number] 2[facility] 4Result Comment: [10/25/2014] [facility] 5[facility] 6Admin Note: Declined 7[facility] Note[facility] 8Result Comment: formerly named [facility] [id number] 9[facility] 10Admin Note: Had hx of Shingles 11Admin Note[facility] Medications amLODIPine 10 mg oral tablet 1 tablet, By Mouth, Daily, # 90 tablet, 0 Refills, Maintenance, 01/07/22 11:10:00 EST, [facility]30, 151.6, cm, 10/15/21 10:07:00 EDT, Height Start Date: 01/07/22 Status: Ordered clopidogrel 75 mg oral tablet 1, tablet, By Mouth, Daily, # 90 tablet, Refills 3, Maintenance, 01/01/22 10:26:00 EST, Route to [facility] Electronically, [facility], 151.6, cm, 10/15/21 10:07:00 EDT, Height Start [...] 0 Refills, Maintenance, 05/26/20 9:11:00 EDT, [facility]/pharmacy #[id number], Partial fill upon patient request if the prescription is for a schedule II opioid drug., 151.6, cm, 05/26/20 8:48:00 EDT, Height Start Date: 05/26/20 Status: Ordered famotidine 20 mg oral tablet 1, tablet, By Mouth, Daily, # 90 tablet, Refills 0, Maintenance, 01/07/22 11:10:00 EST, Route to [facility]ically, [facility], 151.6, cm, 10/15/21 10:07:00 EDT, Height Start [...] AT BEDTIME, # 45 Unknown, 1 Refills, Maintenance, 03/15/22 17:46:00 EST, [facility]/pharmacy #[id number], 151.6, cm, 02/19/22 14:08:00 EST, Height Start Date: 03/15/22 Status: Ordered levothyroxine 0.137 mg oral tablet 1 tablet, By Mouth, Daily, # 90 tablet, 1 Refills, Maintenance, 02/07/22 14:39:00 EST, [facility], 151.6, cm, 10/15/21 10:07:00 EDT, Height Start Date: 02/07/22 Status: Ordered NovoLOG FlexPen 100 units/mL injectable solution See Instructions, INJECT SUBCUTANEOUSLY ONCE DAILY PER SLIDING SCALE, MAX OF 24 UNITS DAILY, # 15 Unknown, 1 Refills, [facility], 151.6, cm, 05/26/20 8:48:00 EDT, Height Start [...] Weight Start Date: 07/09/19 Status: Ordered Pen [place], 31 G x 5 mm BD Ultra Fine III See Instructions, # 100 each, Refills 5, Tot. Refills 5, Maintenance, Use as daily with insulin Dx:Type 2 DM, E11.9, 10/26/21 4:43:00 EDT, Compound, 151.6, cm, 10/15/21 10:07:00 EDT, Height Start Date: 10/26/21 Stop Date: 04/24/22 Status: Ordered Potassium Chloride (Viq-Zpce-Rux 10) 10 mEq oral tablet, extended release 2 tablet, By Mouth, Daily, # 180 tablet, 3 Refills, [facility], 151.6, cm, 05/25/21 8:30:00 EDT, Height Start Date: 09/14/21 Status: Ordered pravastatin 40 mg oral tablet 1 tablet, By Mouth, Daily, # 90 tablet, 1 Refills, Maintenance, 12/06/21 5:50:00 EDT, [facility]/pharmacy #[id number], 151.6, cm, 10/15/21 10:07:00 EDT, Height [...] Personnel Name: Luis ASHLEY, Shelly Villareal Position: [facility] PCO Associate Professional Member Role: PCP Address: Address: [address] [place] [address] [address] [place] [address]- Name: Janina Coy RN Position: [facility] RN Member Role: Primary Care Nurse Care Team Related Persons Name: KOIR WATTERS Address: home [address] [place] [address] Name: COREY OLSEN Address: [place] [address]
--- OUTSIDE RECORDS SUMMARY | 2022-07-31 20:09 | XMS_ITS | Continuity of Care Document ---
Author Name Unknown Organization [facility] Address [address] [place] [address]- Care Team Providers Care Broth Setter Name Role Phone Luis SHIELD INSTALLER, Shelly Villareal Primary Care Physician Encounter [facility] Date(s): 05/04/22 - 06/03/22 [facility] [address] [place] [address]- Allergies, Adverse Reactions, Alerts Substance Reaction Severity [...] pneumococcal 23-valent vaccine 01/18/11 Given 1Result Comment: [id number] 2[facility] Note[facility] 3[facility] 4Result Comment: [10/25/2014] HIGH DOSE 5[facility] 6Admin Note: Declined 7Admin Note: [facility] 8Result Comment: [facility] [id number] 9[facility] Note[facility] 10Admin Note: Had hx of Shingles 11Admin Note: [facility] Medications amLODIPine 10 mg oral tablet 1 tablet, By Mouth, Daily, # 90 tablet, 1 Refills, Maintenance, 04/07/22 4:59:00 EST, [facility] ST[facility] 33150, 151.6, cm, 02/19/22 14:08:00 EST, Height Start Date: 04/07/22 Status: Ordered clopidogrel 75 mg oral tablet 1, tablet, By Mouth, Daily, # 90 tablet, Refills 3, Maintenance, 01/01/22 10:26:00 EST, Route to Pharmacy Electronically, [facility] 55878, 151.6, cm, 10/15/21 10:07:00 EDT, Height Start [...] capsule, 0 Refills, Maintenance, 05/26/20 9:11:00 EDT, [facility]/pharmacy #[id number], Partial fill upon patient request if the prescription is for a schedule II opioid drug., 151.6, cm, 05/26/20 8:48:00 EDT, Height Start Date: 05/26/20 Status: Ordered famotidine 20 mg oral tablet 1, tablet, By Mouth, Daily, # 90 tablet, Refills 0, Maintenance, 04/07/22 4:59:00 EST, Route to [facility], [facility], 151.6, cm, 02/19/22 14:08:00 EST, Height Start [...] opioid drug. Start Date: 10/15/21 Status: Ordered Lantus Solostar Pen 100 units/mL subcutaneous solution = 60 units, Subcutaneous Injection, Daily at bedtime, # 15 mL, 6 Refills, Soft Stop, 05/25/22 16:54:00 EDT, Solution, [facility]/pharmacy #[id number], Partial fill upon patient request if the prescription is for a schedule II opioid drug., 151.6, cm, 02/19/22 14:0... Start Date: 05/25/22 Stop Date: 12/21/22 Status: Ordered Levemir FlexTouch 100 units/mL subcutaneous solution See Instructions, IINJECT 60 UNITS SUBCUTANEOUSLY ONCE DAILY AT BEDTIME, # 45 Unknown, 1 Refills, Maintenance, 05/24/22 17:15:00 EDT, [facility]/pharmacy #[id number], 151.6, cm, 02/19/22 14:08:00 EST, Height Start Date: 05/24/22 Status: Ordered levothyroxine 0.137 mg oral tablet 1 tablet, By Mouth, Daily, # 90 tablet, 1 Refills, Maintenance, 02/07/22 14:39:00 EST, [facility], 151.6, cm, 10/15/21 10:07:00 EDT, Height Start Date: 02/07/22 Status: Ordered NovoLOG FlexPen 100 units/mL injectable solution See Instructions, INJECT SUBCUTANEOUSLY ONCE DAILY PER SLIDING SCALE, MAX OF 24 UNITS DAILY, # 15 Unknown, 1 Refills, [facility], 151.6, cm, 05/26/20 8:48:00 EDT, Height Start [...] Weight Start Date: 07/09/19 Status: Ordered Pen Omega, 31 G x 5 mm BD Ultra Fine III See Instructions, # 100 each, Refills 5, Tot. Refills 5, Maintenance, Use as daily with insulin Dx:Type 2 DM, E11.9, 10/26/21 4:43:00 EDT, Compound, 151.6, cm, 10/15/21 10:07:00 EDT, Height Start Date: 10/26/21 Stop Date: 04/24/22 Status: Ordered Potassium Chloride (Zdm-Hldj-Orr 10) 10 mEq oral tablet, extended release 2 tablet, By Mouth, Daily, # 180 tablet, 3 Refills, [facility], 151.6, cm, 05/25/21 8:30:00 EDT, Height Start Date: 09/14/21 Status: Ordered pravastatin 40 mg oral tablet 1 tablet, By Mouth, Daily, # 90 tablet, 1 Refills, Maintenance, 05/23/22 9:17:00 EDT, [facility], 151.6, cm, 02/19/22 14:08:00 EST, Height Start [...] Care team information Care Team Personnel Name: Shelly Smith NP Position: [facility] PCO Associate Professional Member Role: PCP Address: Address: [address] [place] [address]- Name: Janina Coy RN Position: [facility] RN Member Role: Primary Care Nurse Care Team Related Persons Name: KORI WATTERS Address: home [address] [place] [address] Name: COREY OLSEN Address: [place] [address]
--- OUTSIDE RECORDS SUMMARY | 2022-07-31 20:09 | XMS_ITS | Continuity of Care Document ---
Author Name Unknown Organization [facility] Address [address] [place] [address]- Care Team Providers Care Equipment Records Supervisor Name Role Phone Luis COUNCIL ON AGING DIRECTOR, Shelly Villareal Primary Care Physician [facility] Date[facility]): 06[facility]22 - 07/04/22 [facility] [address] [place] [phone]- Allergies, Adverse Reactions, Alerts Substance Reaction Severity [...] pneumococcal 23-valent vaccine 01/18/11 Given 1Result Comment: [id number] [facility] 4Result Comment: [10/25/2014] H[facility] DOSE 5Admin Note: [facility] 6Admin Note: Declined 7Admin Note: [facility] 8Result Comment: [facility] [id number] 9Admin Note[facility] 10Admin Note: Had hx of Shingles 11Admin Note: [facility] Medications amLODIPine 10 mg oral tablet 1 tablet, By Mouth, Daily, # 90 tablet, 1 Refills, Maintenance, 04/07/22 4:59:00 EST, [facility] STORE 34527, 151.6, cm, 02/19/22 14:08:00 EST, Height Start Date: 04/07/22 Status: Ordered clopidogrel 75 mg oral tablet 1, tablet, By Mouth, Daily, # 90 tablet, Refills 3, Maintenance, 01/01/22 10:26:00 EST, Route to Pharmacy Electronically, [facility]ORE 42262, 151.6, cm, 10/15/21 10:07:00 EDT, Height Start [...] capsule, 0 Refills, Maintenance, 05/26/20 9:11:00 EDT, [facility]/pharmacy #[id number], Partial fill upon patient request if the prescription is for a schedule II opioid drug., 151.6, cm, 05/26/20 8:48:00 EDT, Height Start Date: 05/26/20 Status: Ordered famotidine 20 mg oral tablet 1, tablet, By Mouth, Daily, # 90 tablet, Refills 0, Maintenance, 07/04/22 21:42:00 EDT, Route to [facility]ically, [facility], 151.6, cm, 02/19/22 14:08:00 EST, Height Start [...] 3 Refills, Maintenance, 06/16/22 11:19:00 EDT, Solution, [facility]/pharmacy #[id number], Levemir flex pen; 100 units/ml; Dispense 4 boxes, 151.6, cm, 02/19/22 14:08:00 EST, Height Start Date: 06/16/22 Stop Date: 06/11/23 Status: Ordered levothyroxine 0.137 mg oral tablet 1 tablet, By Mouth, Daily, # 90 tablet, 1 Refills, Maintenance, 02/07/22 14:39:00 EST, [facility], 151.6, cm, 10/15/21 10:07:00 EDT, Height Start Date: 02/07/22 Status: Ordered NovoLOG FlexPen 100 units/mL injectable solution See Instructions, INJECT SUBCUTANEOUSLY ONCE DAILY PER SLIDING SCALE, MAX OF 24 UNITS DAILY, # 15 Unknown, 1 Refills, [facility], 151.6, cm, 05/26/20 8:48:00 EDT, Height Start [...] Weight Start Date: 07/09/19 Status: Ordered Pen [place], 31 G x 5 mm BD Ultra Fine III See Instructions, # 100 each, Refills 5, Tot. Refills 5, Maintenance, Use as daily with insulin Dx:Type 2 DM, E11.9, 10/26/21 4:43:00 EDT, Compound, 151.6, cm, 10/15/21 10:07:00 EDT, Height Start Date: 10/26/21 Stop Date: 04/24/22 Status: Ordered Potassium Chloride (Dfj-Xowu-Nme 10) 10 mEq oral tablet, extended release 2 tablet, By Mouth, Daily, # 180 tablet, 3 Refills, [facility], 151.6, cm, 05/25/21 8:30:00 EDT, Height Start Date: 09/14/21 Status: Ordered pravastatin 40 mg oral tablet 1 tablet, By Mouth, Daily, # 90 tablet, 1 Refills, Maintenance, 05/23/22 9:17:00 EDT, [facility], 151.6, cm, 02/19/22 14:08:00 EST, Height Start [...] Personnel Name: Luis ASHLEY, Shelly Villareal Position: [facility] PCO Associate Professional Member Role: PCP Address: Address: [address] [place] [address] [address] [place] [address]- Name: Janina Coy RN Position: [facility] RN Member Role: Primary Care Nurse Care Team Related Persons Name: KORI WATTERS Address: home [address] [place] [phone] Name: COREY OLSEN Address: [place] [address]
--- OUTSIDE RECORDS SUMMARY | 2022-07-31 20:09 | XMS_ITS | Continuity of Care Document ---
Author Name Unknown Organization [facility] Address [address] [place] [address]- Care Team Providers Care Transmission Systems Operator Name Role Phone Luis SERVICE PLANNER, Shelly Villarela Primary Care Physician [facility] Date(s): 01/25/22 - 02/24/22 [facility] [address] [place] [phone]- Allergies, Adverse Reactions, Alerts Substance Reaction Severity [...] pneumococcal 23-valent vaccine 01/18/11 Given 1Result Comment: [id number] 2[facility] Note[facility] 4Result Comment: [10/25/2014] HIGH DOSE 5Admin Note[facility] 6Admin Note: Declined 7Admin Note: [facility] 8Result Comment: [facility] [id number] 9Admin Note[facility] 10Admin Note: Had hx of Shingles 11Admin Note: [facility] Medications amLODIPine 10 mg oral tablet 1 tablet, By Mouth, Daily, # 90 tablet, 0 Refills, Maintenance, 01/07/22 11:10:00 EST, [facility] STORE 15927, 151.6, cm, 10/15/21 10:07:00 EDT, Height Start Date: 01/07/22 Status: Ordered clopidogrel 75 mg oral tablet 1, tablet, By Mouth, Daily, # 90 tablet, Refills 3, Maintenance, 01/01/22 10:26:00 EST, Route to [facility] Electronically, [facility], 151.6, cm, 10/15/21 10:07:00 EDT, Height Start [...] 0 Refills, Maintenance, 05/26/20 9:11:00 EDT, [facility]/pharmacy #[id number], Partial fill upon patient request if the prescription is for a schedule II opioid drug., 151.6, cm, 05/26/20 8:48:00 EDT, Height Start Date: 05/26/20 Status: Ordered famotidine 20 mg oral tablet 1, tablet, By Mouth, Daily, # 90 tablet, Refills 0, Maintenance, 01/07/22 11:10:00 EST, Route to [facility] Electronically, [facility], 151.6, cm, 10/15/21 10:07:00 EDT, Height Start [...] 45 Unknown, 1 Refills, 11/06/21 11:06:00 EDT, [facility]/pharmacy #7111, 151.6, cm, 10/15/21 10:07:00 EDT, Height Start Date: 11/06/21 Status: Ordered levothyroxine 0.137 mg oral tablet 1 tablet, By Mouth, Daily, # 90 tablet, 1 Refills, Maintenance, 02/07/22 14:39:00 EST, [facility], 151.6, cm, 10/15/21 10:07:00 EDT, Height Start Date: 02/07/22 Status: Ordered NovoLOG FlexPen 100 units/mL injectable solution See Instructions, INJECT SUBCUTANEOUSLY ONCE DAILY PER SLIDING SCALE, MAX OF 24 UNITS DAILY, # 15 Unknown, 1 Refills, [facility], 151.6, cm, 05/26/20 8:48:00 EDT, Height Start [...] Weight Start Date: 07/09/19 Status: Ordered Pen [place], 31 G x 5 mm BD Ultra Fine III See Instructions, # 100 each, Refills 5, Tot. Refills 5, Maintenance, Use as daily with insulin Dx:Type 2 DM, E11.9, 10/26/21 4:43:00 EDT, Compound, 151.6, cm, 10/15/21 10:07:00 EDT, Height Start Date: 10/26/21 Stop Date: 04/24/22 Status: Ordered Potassium Chloride (Wyq-Oixn-Yht 10) 10 mEq oral tablet, extended release 2 tablet, By Mouth, Daily, # 180 tablet, 3 Refills, [facility], 151.6, cm, 05/25/21 8:30:00 EDT, Height Start Date: 09/14/21 Status: Ordered pravastatin 40 mg oral tablet 1 tablet, By Mouth, Daily, # 90 tablet, 1 Refills, Maintenance, 12/06/21 5:50:00 EDT, [facility]/pharmacy #[id number], 151.6, cm, 10/15/21 10:07:00 EDT, Height [...] Care team information Care Team Personnel Name: uLis ASHLEY, Shelly Villareal Position: [facility] PCO Associate Professional Member Role: PCP Address: Address: [address] [place] [address] [address] [place] [address]- Name: Janina Coy RN Position: [facility] RN Member Role: Primary Care Nurse Care Team Related Persons Name: KORI WATTERS Address: home [address] [place] [phone] Name: COREY OLSEN Address: [place] [address]
--- OUTSIDE RECORDS SUMMARY | 2022-07-31 20:09 | XMS_ITS | Continuity of Care Document ---
Author Name Unknown Organization [facility] Address [address] [place] [address]- Care Team Providers Care Environmental Laboratory Technician Name Role Phone Luis PRODUCTION STAGE MANAGER, Shelly Villareal Primary Care Physician Encounter [facility] Date(s): 05/25/22 - 06/24/[address] [facility] [address] [place] [phone]- Allergies, Adverse Reactions, Alerts Substance Reaction Severity [...] pneumococcal 23-valent vaccine 01/18/11 Given 1Result Comment: [id number] 2[facility] Note[facility] 4Result Comment: [10/25/2014] HIGH DOSE 5Admin Note[facility] 6Admin Note: Declined 7Admin Note: [facility] 8Result Comment: [facility] [id number] 9Admin Note[facility] 10Admin Note: Had hx of Shingles 11Admin Note: [facility] Medications amLODIPine 10 mg oral tablet 1 tablet, By Mouth, Daily, # 90 tablet, 1 Refills, Maintenance, 04/07/22 4:59:00 EST, [facility] STORE 51762, 151.6, cm, 02/19/22 14:08:00 EST, Height Start Date: 04/07/22 Status: Ordered clopidogrel 75 mg oral tablet 1, tablet, By Mouth, Daily, # 90 tablet, Refills 3, Maintenance, 01/01/22 10:26:00 EST, Route to Pharmacy Electronically, [facility] STORE 39720, 151.6, cm, 10/15/21 10:07:00 EDT, Height Start [...] capsule, 0 Refills, Maintenance, 05/26/20 9:11:00 EDT, [facility]/pharmacy #[id number], Partial fill upon patient request if the prescription is for a schedule II opioid drug., 151.6, cm, 05/26/20 8:48:00 EDT, Height Start Date: 05/26/20 Status: Ordered famotidine 20 mg oral tablet 1, tablet, By Mouth, Daily, # 90 tablet, Refills 0, Maintenance, 04/07/22 4:59:00 EST, Route to [facility] Electronically, [facility], 151.6, cm, 02/19/22 14:08:00 EST, Height Start [...] 3 Refills, Maintenance, 06/16/22 11:19:00 EDT, Solution, [facility]/pharmacy #[id number], Levemir flex pen; 100 units/ml; Dispense 4 boxes, 151.6, cm, 02/19/22 14:08:00 EST, Height Start Date: 06/16/22 Stop Date: 06/11/23 Status: Ordered levothyroxine 0.137 mg oral tablet 1 tablet, By Mouth, Daily, # 90 tablet, 1 Refills, Maintenance, 02/07/22 14:39:00 EST, [facility], 151.6, cm, 10/15/21 10:07:00 EDT, Height Start Date: 02/07/22 Status: Ordered NovoLOG FlexPen 100 units/mL injectable solution See Instructions, INJECT SUBCUTANEOUSLY ONCE DAILY PER SLIDING SCALE, MAX OF 24 UNITS DAILY, # 15 Unknown, 1 Refills, [facility], 151.6, cm, 05/26/20 8:48:00 EDT, Height Start [...] Weight Start Date: 07/09/19 Status: Ordered Pen [place], 31 G x 5 mm BD Ultra Fine III See Instructions, # 100 each, Refills 5, Tot. Refills 5, Maintenance, Use as daily with insulin Dx:Type 2 DM, E11.9, 10/26/21 4:43:00 EDT, Compound, 151.6, cm, 10/15/21 10:07:00 EDT, Height Start Date: 10/26/21 Stop Date: 04/24/22 Status: Ordered Potassium Chloride (Etg-Ruib-Lrz 10) 10 mEq oral tablet, extended release 2 tablet, By Mouth, Daily, # 180 tablet, 3 Refills, [facility], 151.6, cm, 05/25/21 8:30:00 EDT, Height Start Date: 09/14/21 Status: Ordered pravastatin 40 mg oral tablet 1 tablet, By Mouth, Daily, # 90 tablet, 1 Refills, Maintenance, 05/23/22 9:17:00 EDT, [facility], 151.6, cm, 02/19/22 14:08:00 EST, Height Start [...] Personnel Name: Luis ASHLEY, Shelly Villareal Position: [facility] PCO Associate Professional Member Role: PCP Address: Address: [address] [place] [address] [address]rd [place] [address]- Name: Janina Coy RN Position: [facility] RN Member Role: Primary Care Nurse Care Team Related Persons Name: KORI WATTERS Address: home [address] [place] [id number] Name: COREY OLSEN Address: [place] [address]
--- OUTSIDE RECORDS SUMMARY | 2022-07-31 20:09 | XMS_ITS | Continuity of Care Document ---
Author Name Unknown Organization [facility] Address [address] [place] [address]- Care Team Providers Care Psychiatric Aide Instructor Name Role Phone Luis ENGLISH LECTURER, Shelly Villareal Primary Care Physician [facility] Date(s): 06/16/22 - 07/16/22 [facility] [address] [place] [phone]- Allergies, Adverse Reactions, Alerts Substance Reaction Severity [...] pneumococcal 23-valent vaccine 01/18/11 Given 1Result Comment: [id number] 2Admin Note[facility] 4Result Comment: [10/25/2014] HIGH DOSE 5Admin Note[facility] 6Admin Note: Declined 7Admin Note: [facility] 8Result Comment: [facility] [id number] 9Admin Note[facility] 10Admin Note: Had hx of Shingles 11Admin Note: [facility] Medications amLODIPine 10 mg oral tablet 1 tablet, By Mouth, Daily, # 90 tablet, 1 Refills, Maintenance, 04/07/22 4:59:00 EST, [facility] STORE 28271, 151.6, cm, 02/19/22 14:08:00 EST, Height Start Date: 04/07/22 Status: Ordered clopidogrel 75 mg oral tablet 1, tablet, By Mouth, Daily, # 90 tablet, Refills 3, Maintenance, 01/01/22 10:26:00 EST, Route to Pharmacy Electronically, [facility] STORE 37113, 151.6, cm, 10/15/21 10:07:00 EDT, Height Start [...] capsule, 0 Refills, Maintenance, 05/26/20 9:11:00 EDT, [facility]/pharmacy #7131, Partial fill upon patient request if the prescription is for a schedule II opioid drug., 151.6, cm, 05/26/20 8:48:00 EDT, Height Start Date: 05/26/20 Status: Ordered famotidine 20 mg oral tablet 1, tablet, By Mouth, Daily, # 90 tablet, Refills 0, Maintenance, 07/04/22 21:42:00 EDT, [facility] to [facility] Electronically, [facility], 151.6, cm, 02/19/22 14:08:00 EST, Height Start [...] 3 Refills, Maintenance, 06/16/22 11:19:00 EDT, Solution, [facility]/pharmacy #7111, Levemir flex pen; 100 units/ml; Dispense 4 boxes, 151.6, cm, 02/19/22 14:08:00 EST, Height Start Date: 06/16/22 Stop Date: 06/11/23 Status: Ordered levothyroxine 0.137 mg oral tablet 1 tablet, By Mouth, Daily, # 90 tablet, 1 Refills, Maintenance, 02/07/22 14:39:00 EST, [facility], 151.6, cm, 10/15/21 10:07:00 EDT, Height Start Date: 02/07/22 Status: Ordered NovoLOG FlexPen 100 units/mL injectable solution See Instructions, INJECT SUBCUTANEOUSLY ONCE DAILY PER SLIDING SCALE, MAX OF 24 UNITS DAILY, # 15 Unknown, 1 Refills, [facility], 151.6, cm, 05/26/20 8:48:00 EDT, Height Start [...] Weight Start Date: 07/09/19 Status: Ordered Pen [place], 31 G x 5 mm BD Ultra Fine III See Instructions, # 100 each, Refills 5, Tot. Refills 5, Maintenance, Use as daily with insulin Dx:Type 2 DM, E11.9, 10/26/21 4:43:00 EDT, Compound, 151.6, cm, 10/15/21 10:07:00 EDT, Height Start Date: 10/26/21 Stop Date: 04/24/22 Status: Ordered Potassium Chloride (Pjd-Ubuu-Ihe 10) 10 mEq oral tablet, extended release 2 tablet, By Mouth, Daily, # 180 tablet, 3 Refills, [facility], 151.6, cm, 05/25/21 8:30:00 EDT, Height Start Date: 09/14/21 Status: Ordered pravastatin 40 mg oral tablet 1 tablet, By Mouth, Daily, # 90 tablet, 1 Refills, Maintenance, 05/23/22 9:17:00 EDT, [facility], 151.6, cm, 02/19/22 14:08:00 EST, Height Start [...] Personnel Name: Luis ASHLEY, Shelly Villareal Position: [facility] PCO Associate Professional Member Role: PCP Address: Address: [address] [place] [address] [address] [place] [address]- Name: Janina Coy RN Position: [facility] RN Member Role: Primary Care Nurse Care Team Related Persons Name: KORI WATTERS Address: home [address] [place] [phone] Name: COREY OLSEN Address: [place] [address]
--- OUTSIDE RECORDS SUMMARY | 2022-07-31 20:09 | XMS_ITS | Continuity of Care Document ---
Author Name Unknown Organization [facility] Address [address] [place] [address]- Care Team Providers Care Catalytic Converter Operator Name Role Phone Luis ASHLEY, Shelly Villareal Primary Care Physician Encounter [facility] Date(s): 10/15/21 - 11/14/21 [facility] [address] [place] [phone]- Attending Physician: Francisca Maradiaga Admitting Physician: Francisca Maradiaga Referring Physician: AdmtrFrancisca Allergies, Adverse Reactions, Alerts Substance Reaction Severity Status ciprofloxacin GI upset Active sulfADIAZINE Active Bactrim GI Upset Active Immunizations Given and Recorded Vaccine Date Status Refusal Reason SARS-CoV-2 (COVID-19) mRNA BNT-162b2 vac 12/17/20 Recorded SARS-CoV-2 (COVID-19) mRNA BNT-162b2 vac 03/21/20 Recorded SARS-CoV-2 (COVID-19) mRNA BNT-162b2 vac 02/29/20 Recorded tetanus-diphtheria toxoids (Td) 1 11/24/20 Given tetanus-diphtheria toxoids (Td) 03/23/10 Given influenza virus vaccine, inactivated 11/23/19 Kal rded influenza virus vaccine, inactivated 2 11/04/17 Gi daniel influenza virus vaccine, inactivated 3 10/27/16 Gi daniel influenza virus vaccine, inactivated 4, 5 10/23/14 Recorded influenza virus vaccine, inactivated 6 10/23/13 Gi daniel influenza virus vaccine, inactivated 7 11/11/12 Gi daniel influenza virus vaccine, inactivated 12/12/10 Give n influenza virus vaccine, inactivated 8 10/26/09 Gi daniel Zostavax (oldterm) 9 10/27/16 Given Zostavax (oldterm) 10 12/26/09 Given Influenza Vaccine (oldterm) 11 10/03/15 Given pneumococcal 13-valent vaccine 09/09/14 Given FluLaval (oldterm) 11/12/11 Given pneumococcal 23-valent vaccine 01/18/11 Given 1Result Comment: [facility] [id number] 2Result Comment: [id number] 3Admin Note[facility] 5Result Comment: [10/25/2014] HIGH DOSE 6[facility] Note[facility] 7Admin Note: Declined [facility]Admin Note: [facility] 9Admin Note[facility] 10Admin Note: Had hx of Shingles 11Admin Note: [facility] high dose Medications amLODIPine 10 mg oral tablet 1 tablet, By Mouth, Daily, # 90 tablet, 1 Refills, [facility] STORE 64559, 151.6, cm, 05/25/21 8:30:00 EDT, Height Start Date: 07/20/21 Status: Ordered clopidogrel 75 mg oral tablet 1, tablet, By Mouth, Daily, # 90 tablet, Refills 3, Route to [facility] Electronically, [facility], 151.6, cm, 11/24/20 8:55:00 EDT, Height Start Date: 01/09/21 Status: Ordered Compression stockings 20-30 mmhg Compression [...] capsule, 0 Refills, Maintenance, 05/26/20 9:11:00 EDT, [facility]/pharmacy #1250, Partial fill upon patient request if the prescription is for a schedule II opioid drug., 151.6, cm, 05/26/20 8:48:00 EDT, Height Start Date: 05/26/20 Status: Ordered famotidine 20 mg oral tablet 1, tablet, By Mouth, Daily, # 90 tablet, Refills 1, Route to Pharmacy Electronically, [facility] STORE 99541, 151.6, cm, 05/25/21 8:30:00 EDT, Height Start Date: 07/20/21 Status: Ordered Freestyle Francheska Monitor See Instructions, [...] 45 Unknown, 1 Refills, 11/06/21 11:06:00 EDT, [facility]/pharmacy #7111, 151.6, cm, 10/15/21 10:07:00 EDT, Height Start Date: 11/06/21 Status: Ordered levothyroxine 0.137 mg oral tablet 1 tablet, By Mouth, Daily, # 90 tablet, 1 Refills, [facility] STORE 68393, 151.6, cm, 05/25/21 8:30:00 EDT, Height Start Date: 08/17/21 Status: Ordered NovoLOG FlexPen 100 units/mL injectable solution See Instructions, INJECT SUBCUTANEOUSLY ONCE DAILY PER SLIDING SCALE, MAX OF 24 UNITS DAILY, # 15 Unknown, 1 Refills, [facility] STORE 16517, 151.6, cm, 05/26/20 8:48:00 EDT, Height Start [...] Weight Start Date: 07/09/19 Status: Ordered Pen [place], 31 G x 5 mm BD Ultra Fine III See Instructions, # 100 each, Refills 5, Tot. Refills 5, Maintenance, Use as daily with insulin Dx:Type 2 DM, E11.9, 10/26/21 4:43:00 EDT, Compound, 151.6, cm, 10/15/21 10:07:00 EDT, Height Start Date: 10/26/21 Stop Date: 04/24/22 Status: Ordered Potassium Chloride (Spw-Cuyk-Fny 10) 10 mEq oral tablet, extended release 2 tablet, By Mouth, Daily, # 180 tablet, 3 Refills, [facility], 151.6, cm, 05/25/21 8:30:00 EDT, Height Start Date: 09/14/21 Status: Ordered pravastatin 40 mg oral tablet 1 tablet, By Mouth, Daily, # 90 tablet, 1 Refills, [facility], 151.6, cm, 05/25/21 8:30:00 EDT, Height Start Date: 06/25/21 Status: Ordered Vitamin D3 1000 intl units [...] Active Hypercholesterolemia Confirmed Active Hypertension Confirmed Active Obese class II Confirmed Active Type 2 diabetes mellitus Confirmed Active Type 2 diabetes mellitus Confirmed 02/19/16 Active Unspecified Hypothyroidism Confirmed 01/26/10 Active Social History Social History Type Response Smoking Status Never (less than 100 in lifetime) entered on: 11/23/19 Sex Patient Care team information Personnel Name: Shelly Smith NP Address: Address: [address] [place] [address]
[2022-07-31 20:10] LABS: MANUAL DIFF FLAG NO
[2022-07-31 20:24] LABS: Basophils Percent Auto 0.2 % (0-2); Hematocrit 34.7 % (37.0-47.0); Hemoglobin 11.3 g/dl (12.0-16.0); Imm Gran Abs Auto 0.15 X10*3/uL (0.00-0.03); Imm Gran Pct Auto 0.7 % (0.0-0.4); Lymphocytes Absolute Auto 0.9 X10*3/uL (1.2-4.9); Lymphocytes Percent Auto 4.5 % (20-40); Mean Corpuscular HGB Conc 32.6 g/dl (31.0-35.0); Mean Corpuscular Hemoglobin 27.6 pg (27.0-33.0); Mean Corpuscular Volume 84.6 fL (80.0-98.0); Mean Platelet Volume 12.9 fL (9.4-12.3); Monocytes Absolute Auto 1.2 X10*3/uL (0.1-1.2); Monocytes Percent Auto 6.2 % (2-11); Neutrophils Absolute Auto 17.7 x10*3/uL (2.0-8.3); Neutrophils Percent Auto 88.4 % (45-73); Platelet Count 245 X10*3/uL (160-400); Red Cell Distribution Width 13.4 % (11.0-16.0)
[2022-07-31 20:28] LABS: Alanine Aminotransferase 11 U/L (0-31); Albumin Level 3.6 g/dL (3.5-5.0); Alkaline Phosphatase 119 U/L (39-117); Anion Gap 16 (12-20); Aspartate Amino Transferase 27 U/L (5-31); Bilirubin Total 0.7 mg/dL (0.0-1.0); Blood Urea Nitrogen 35 mg/dL (9-16); Carbon Dioxide 27 mmol/L (22-29); Chloride 99 mmol/L (96-108); Creatinine Clr Calc Pharmacy 31.4; Estimated Glomerular Filt Rate 36; Glucose Random 134 mg/dL (60-115); Lipase < 4 U/L (8-78); Potassium 4.2 mmol/L (3.3-5.1); Sodium 138 mmol/L (135-145); Total Protein 6.9 g/dL (6.5-8.0)
[2022-07-31 22:29] LABS: Lactic Acid 0.7 mmol/L (0.5-2.0)
[2022-07-31] MEDS: Piperacillin Sodium/Tazobactam 3.375 GM in 0.9 % Sodium Chloride 50 ML IV (23:24)
[2022-08-01 01:12] LABS: Appearance Urine Cloudy; Color Urine Yellow; Glucose Urine UA Negative (Negative); Leukocyte Esterase Urine Moderate (2+) (Negative); Nitrite Urine Negative (Negative); PH 5.5 (5.0-9.0); Specific Gravity - Urine 1.015 (1.005-1.025); UMIC TRIGGER UACC YES; Urine Blood Small (1+) (Negative); Urine Ketones Negative (Negative); Urine Protein Trace mg/dL (Neg-Trace)
[2022-08-01 01:24] LABS: Bacteria Urine 4+ (None Seen); Hyaline Casts Urine 0-2 /LPF (0-2); RBC Urine 0-2 /HPF (0-2); Squamous Epithelial Cell Urine 0-2 /HPF (0-2); UACC Culture Trigger YES; WBC Clumps Urine Present; WBC Urine >50 /HPF (0-5)
--- NOTE | 2022-08-01 01:44 | P.HPHOSP_ITS ---
History of Present Illness Date of Service: 08/01/22 Chief Complaint: Altered mentation This is 87-year-old female with pertinent history of essential hypertension, insulin-dependent diabetes mellitus, hypothyroidism, mixed hyperlipidemia was brought to the emergency department from assisted living facility for evaluation of decreased mentation, decreased p.o. intake and generalized abdominal discomfort. Unable to obtain history from the patient. History obtained from daughter at bedside and ER provider. Patient started having nausea and lower abdominal pain 1 day prior to presentation. On the day of presentation, patient with poor p.o. intake, nausea and nonbloody emesis. She was lethargic and drowsy. The daughter states that patient does have a history of recurrent UTIs. No fever, chills, changes in urinary or bowel habits. Unable to obtain review of systems. Review of Systems Review of Systems: Yes Unobtainable due to mental status PMFSH Pertinent family history: Unable to obtain Social History Smoked in Last 30 Days: No Advance Directives: No Advance Directives Information Provided: Yes Meds Allergies Allergy/AdvReac Type Severity Reaction Status Date / Time Sulfa (Sulfonamide Allergy Unknown NAUSEA & Verified 07/31/22 19:47 Antibiotics) VOMITING [SULFA (SULFONAMIDE ANTIBIOTICS)] Physical Exam Vital Signs and Narrative: Vital Signs: Last Vital Signs Temp 97.9 F 07/31/22 20:03 Pulse 89 07/31/22 20:03 Resp 16 07/31/22 20:03 BP 127/43 L 07/31/22 20:03 Pulse Ox 95 07/31/22 20:03 O2 Del Method Room Air 07/31/22 20:03 BMI result Body Mass Index 33.8 Elderly female lying in bed in no distress Neck supple, no JVD Regular rate and rhythm, S1-S2 heard Regular breath sounds bilaterally, no wheezing or crackles appreciated Abdomen soft nontender, no guarding, no rigidity Patient awakens in response to verbal stimulus and only oriented to self, d isoriented to time and place Psych: Drowsy No pedal edema Results Labs 07/31/22 20:05 07/31/22 20:05 Labs: Laboratory Results - last 24 hr 07/31/22 07/31/22 07/31/22 20:05 20:05 22:15 MCV 84.6 MCH 27.6 MCHC 32.6 RDW 13.4 Plt Count 245 MPV 12.9 H Immature Gran % (Auto) 0.7 H Neut % (Auto) 88.4 H Lymph % (Auto) 4.5 L [place] % (Auto) 6.2 Eos % (Auto) 0.0 Baso % (Auto) 0.2 Lymph # (Auto) 0.9 L [place] # (Auto) 1.2 Eos # (Auto) 0.0 Baso # (Auto) 0.0 Abs Immat Gran (auto) 0.15 H Absolute Neuts (auto) 17.7 H Absolute Nucleated RBC 0.000 Nucleated RBC % (auto) 0.0 Anion Gap 16 Estim Creat Clear Calc 31.4 Estimated GFR 36 Random Glucose 134 H Lactic Acid 0.7 Calcium 10.0 D Total Bilirubin 0.7 AST 27 ALT 11 Alkaline Phosphatase 119 H Total Protein 6.9 Albumin 3.6 Lipase < 4 L Urine Color Urine Appearance Urine pH Ur Specific [place] Urine Protein Urine Glucose (UA) Urine Ketones Urine Blood Urine Nitrite Ur Leukocyte Esterase Urine RBC Urine WBC Urine WBC Clumps Ur Squamous Epith Cells Urine Bacteria Hyaline Casts 08/01/22 00:45 MCV MCH MCHC RDW Plt Count MPV Immature Gran % (Auto) Neut % (Auto) Lymph % (Auto) [place] % (Auto) Eos % (Auto) Baso % (Auto) Lymph # (Auto) [place] # (Auto) Eos # (Auto) Baso # (Auto) Abs Immat Gran (auto) Absolute Neuts (auto) Absolute Nucleated RBC Nucleated RBC % (auto) Anion Gap Estim Creat Clear Calc Estimated GFR Random Glucose Lactic Acid Calcium Total Bilirubin AST ALT Alkaline Phosphatase Total Protein Albumin Lipase Urine Color Yellow Urine Appearance Cloudy Urine pH 5.5 Ur Specific [place] 1.015 Urine Protein Trace Urine Glucose (UA) Negative Urine Ketones Negative Urine Blood Small (1+) H Urine Nitrite Negative Ur Leukocyte Esterase Moderate (2+) H Urine RBC 0-2 Urine WBC >50 H Urine WBC Clumps Present Ur Squamous Epith Cells 0-2 Urine Bacteria 4+ Hyaline Casts 0-2 Imaging Radiologist's Impressions: Impressions Abdomen/Pelvis CT 07/31/22 20:19 IMPRESSION: 1. There is extensive colonic diverticulosis but no evidence of diverticulitis. 2. Previously seen abnormal loops of small bowel have been resected. 3. Stable fluid collections around the pancreas. 4. Other incidental findings as described above including stable bilateral adrenal gland thickening, severe degenerative changes in the spine and extensive vascular calcifications. Fleischner guidelines were followed. Assessment and Plan (1) Acute UTI: Status: Acute Plan This is 87-year-old female with pertinent history of essential hypertension, insulin-dependent diabetes mellitus, hypothyroidism, mixed hyperlipidemia was brought to the emergency department from assisted living facility for evaluation of decreased mentation, decreased p.o. intake and generalized abdominal discomfort. #. Acute metabolic encephalopathy in the setting of acute UTI. Resuscitated with IV crystalloids. Initiating empiric IV Rocephin. Follow urine culture #. Insulin-dependent diabetes mellitus. Reduce basal regimen. Initiating Accu-Cheks with sliding scale insulin #. Essential hypertension. Continue home antihypertensives #. Hypothyroidism. On Synthroid #. Mixed hyperlipidemia. On statin Med rec pending DVT prophylaxis: Lovenox DNR/DNI Admit as inpatient and will require two night minimum hospital stay for IV antibiotics Time Spent With Patient Time: Total time managing care of this patient today ____ minutes. Quality Stroke Does the patient have a stroke diagnosis?: No VTE Prior VTE?: No VTE Risk Level:: Medical - moderate - high VTE Device Contraindication: Treatment Not Indicated VTE Drug Contraindication: N/A - Med Ordered
[2022-08-01] MEDS: Enoxaparin Sodium 40 MG/0.4 ML SYRINGE SUBCUT (03:13)
[2022-08-01] MEDS: cefTRIAXone sodium 1 GM in 0.9 % Sodium Chloride 50 ML IV (03:13)
--- NOTE | 2022-08-01 05:13 | PC.NURSE ---
assisted to bedside commode x1 asst. slow but steady. normally uses rolling walker at assisted facility. mental status at baseline. breathing easy/vss. no nausea. receiving IV abx therapy for UTI. daughter at bedside. continues to wait for bed assignment.
[2022-08-01 05:15] LABS: Basophils Absolute Auto 0.1 X10*3/uL (0.0-0.2); Basophils Percent Auto 0.3 % (0-2); Eosinophils Percent Auto 0.2 % (0-4); Hematocrit 33.7 % (37.0-47.0); Hemoglobin 10.5 g/dl (12.0-16.0); Imm Gran Abs Auto 0.06 X10*3/uL (0.00-0.03); Imm Gran Pct Auto 0.4 % (0.0-0.4); Lymphocytes Absolute Auto 1.2 X10*3/uL (1.2-4.9); Lymphocytes Percent Auto 7.6 % (20-40); Mean Corpuscular HGB Conc 31.2 g/dl (31.0-35.0); Mean Corpuscular Volume 86.6 fL (80.0-98.0); Mean Platelet Volume 12.5 fL (9.4-12.3); Monocytes Absolute Auto 0.6 X10*3/uL (0.1-1.2); Monocytes Percent Auto 3.9 % (2-11); Neutrophils Absolute Auto 13.3 x10*3/uL (2.0-8.3); Neutrophils Percent Auto 87.6 % (45-73); PLT CLUMP 1; Red Blood Count 3.89 X10*6/uL (4.20-5.50); Red Cell Distribution Width 13.9 % (11.0-16.0); SCAN SMEAR FLAG 1
[2022-08-01 05:16] LABS: MANUAL DIFF FLAG NO; Platelet Count 185 X10*3/uL (160-400); White Blood Count 15.2 X10*3/uL (4.8-10.8)
[2022-08-01 05:28] LABS: Anion Gap 15 (12-20); Blood Urea Nitrogen 31 mg/dL (9-16); Calcium 9.3 mg/dL (8.4-10.2); Carbon Dioxide 23 mmol/L (22-29); Chloride 105 mmol/L (96-108); Creatinine Clr Calc Pharmacy 34.6; Estimated Glomerular Filt Rate 40; Glucose Random 102 mg/dL (60-115); Potassium 4.3 mmol/L (3.3-5.1); Sodium 139 mmol/L (135-145)
[2022-08-01 06:55] LABS: Glucose, Whole Blood 106 mg/dL (60-115)
[2022-08-01 07:28] VITALS: BP 144/48; PULSE 82; RESP 16; TEMP 37.4; O2SAT 92
[2022-08-01] MEDS: 0.9 % Sodium Chloride Flush 3 ML SYRINGE IVFLUSH (07:51)
--- NOTE | 2022-08-01 08:40 | PHA.MEDREC ---
Pharmacy Consult ? Medication Reconciliation Pharmacy has completed the medication reconciliation. spoke with patients daughter who had an updated list and confirmed her medications.
[2022-08-01 09:18] VITALS: BP 177/72; PULSE 84; RESP 20; TEMP 36.8; O2SAT 94
--- NOTE | 2022-08-01 09:52 | PM.EVENT ---
Event Note Date of Service: 08/01/22 Event Note: This is 87-year-old female with pertinent history of essential hypertension, insulin-dependent diabetes mellitus, hypothyroidism, mixed hyperlipidemia was brought to the emergency department from assisted living facility for evaluation of decreased mentation, decreased p.o. intake and generalized abdominal discomfort. Acute metabolic encephalopathy in the setting of acute UTI.? IV Rocephin.? Follow urine culture Insulin-dependent diabetes mellitus.? Initiating Accu-Cheks with sliding scale insulin Essential hypertension.? Continue home antihypertensives CKD 4 stable Hypothyroidism.? On Synthroid Mixed hyperlipidemia.? On statin DVT prophylaxis:? Lovenox DNR/DNI attending Dr. Barakat Admit as inpatient and will require two night minimum hospital stay for IV antibiotics Time Spent With Patient Time: Total time managing care of this patient today ____ minutes.
[2022-08-01] MEDS: Insulin Glargine,Hum.rec.anlog 100 UNIT/ML 10 ML VIAL 24 UNIT SUBCUT (10:25)
[2022-08-01] MEDS: Levothyroxine Sodium 112 MCG TABLET PO (10:28)
[2022-08-01] MEDS: Levothyroxine Sodium 25 MCG TABLET PO (10:28)
--- NOTE | 2022-08-01 11:09 | MHC.CM.PN ---
Addendum entered by Nubia Arriola 08/01/22 11:12: PTS HCP NOW ON CHART Original Note: CM MET WITH PTS DAUGHTER, KORI, AT BEDSIDE PT RESIDES AT THE [facility] IN [place] SHE RECEIVES ASSISTANCE WITH SHOWERS, DRESSING, HOUSEKEEPING, MEDS AND ALL MEALS PTS DAUGHTER PREPARES HER MED BOX WEEKLY PT USES A ROLLATOR TO AMBULATE SHE HAS A MOLST ON FILE COPY OF HCP REQUESTED PCP: MILA MENA IMM DELIVERED DCP: RETURN TO THE [facility] VIA FAMILY TRANSPORT
[2022-08-01 11:28] LABS: Glucose, Whole Blood 191 mg/dL (60-115)
[2022-08-01] MEDS: Acetaminophen 325 MG TABLET 650 MG PO (11:36)
[2022-08-01] MEDS: Insulin Lispro 100 UNIT/ML 3 ML VIAL SUBCUT (12:05)
[2022-08-01] MEDS: 0.9 % Sodium Chloride 1,000 ML 80 ML IVCONT (14:45)
[2022-08-01 15:15] VITALS: BP 150/62; PULSE 82; RESP 20; TEMP 36.6; O2SAT 96
[2022-08-01 16:10] LABS: Glucose, Whole Blood 146 mg/dL (60-115)
[2022-08-01] MEDS: ondansetron HCL 4 MG/2 ML VIAL IVPUSH (16:55)
[2022-08-01 17:04] VITALS: TEMP 37.4
[2022-08-01 19:31] VITALS: BP 152/58; PULSE 78; RESP 14; TEMP 36.6; O2SAT 91
[2022-08-01 20:16] LABS: Glucose, Whole Blood 140 mg/dL (60-115)
[2022-08-02] MEDS: cefTRIAXone sodium 1 GM in 0.9 % Sodium Chloride 50 ML IV (02:14)
[2022-08-02] MEDS: 0.9 % Sodium Chloride 1,000 ML 80 ML IVCONT ×2 (02:14→14:52)
[2022-08-02] MEDS: Enoxaparin Sodium 40 MG/0.4 ML SYRINGE SUBCUT (02:15)
[2022-08-02 04:00] VITALS: BP 146/36; PULSE 77; RESP 16; TEMP 36.4; O2SAT 93
[2022-08-02 06:37] LABS: Glucose, Whole Blood 84 mg/dL (60-115)
[2022-08-02] MEDS: Levothyroxine Sodium 112 MCG TABLET PO (06:44)
[2022-08-02] MEDS: Levothyroxine Sodium 25 MCG TABLET PO (06:44)
[2022-08-02 07:19] LABS: Glucose, Whole Blood 88 mg/dL (60-115)
[2022-08-02 07:24] LABS: Glucose, Whole Blood 84 mg/dL (60-115)
[2022-08-02 07:42] VITALS: BP 140/72; PULSE 76; RESP 16; TEMP 36.8; O2SAT 92
[2022-08-02] MEDS: Furosemide 40 MG TABLET PO (07:42)
[2022-08-02] MEDS: amLODIPine Besylate 10 MG TABLET PO (07:42)
[2022-08-02] MEDS: Famotidine 20 MG TABLET PO (07:42)
[2022-08-02] MEDS: Cholecalciferol (Vitamin D3) 25 MCG TABLET PO (07:42)
[2022-08-02] MEDS: Clopidogrel Bisulfate 75 MG TABLET PO (07:42)
[2022-08-02] MEDS: Potassium Chloride ER 20 MEQ TAB.ER.PRT PO (07:42)
[2022-08-02] MEDS: Insulin Glargine,Hum.rec.anlog 100 UNIT/ML 10 ML VIAL 24 UNIT SUBCUT (08:47)
--- NOTE | 2022-08-02 11:12 | HO.PM.IMPN ---
Subjective Subjective Date of Service: 08/02/22 Review of Systems follow up UTI feeling better no pain Physical Exam Vital Signs: Vital Signs: Last Vital Signs Temp 98.2 F 08/02/22 07:42 Pulse 76 08/02/22 07:42 Resp 16 08/02/22 07:42 BP 140/72 H 08/02/22 07:42 Pulse Ox 92 08/02/22 07:42 O2 Del Method Room Air 08/02/22 07:42 BMI result Body Mass Index 33.8 Appearing in no acute distress lung sounds are clear to auscultation heart regular rate rhythm, clear S1, S2 positive bowel sounds, abdomen is soft, nontender neuro patient is alert x3, no focal deficits Objective Data Active Medications Acetaminophen (Acetaminophen 325 Mg Tablet) 650 mg PO Q6H PRN PRN Reason: Pain, Mild (Pain Scale 1-3) Last Admin: 08/01/22 11:36 Dose: 650 mg Documented By: VY Amlodipine Besylate (Amlodipine Besylate 10 Mg Tablet) 10 mg PO DAILY [facility]; Protocol Last Admin: 08/02/22 07:42 Dose: 10 mg Documented By: VY Clopidogrel Bisulfate (Clopidogrel Bisulfate 75 Mg Tablet) 75 mg PO DAILY [facility] Last Admin: 08/02/22 07:42 Dose: 75 mg Documented By: VY Dextrose (Dextrose 50 % 25 Gm/50 Ml Syringe) 25 gm IVPUSH Q15M PRN; Protocol PRN Reason: per Hypoglycemia Standing Ord. Docusate Sodium (Docusate Sodium 100 Mg Capsule) 100 mg PO MOWEFR@2000 [facility] Enoxaparin Sodium (Enoxaparin Sodium 40 Mg/0.4 Ml Syringe) 40 mg SUBCUT Q24H [facility] Last Admin: 08/02/22 02:15 Dose: 40 mg Documented By: ROSALBA Famotidine (Famotidine 20 Mg Tablet) 20 mg PO DAILY [facility] Last Admin: 08/02/22 07:42 Dose: 20 mg Documented By: VY Furosemide (Furosemide 40 Mg Tablet) 40 mg PO DAILY [facility]; Protocol Last Admin: 08/02/22 07:42 Dose: 40 mg Documented By: VY Glucose (Glucose Gel 15 Gm Gel..Gram.) 15 gm PO Q15M PRN; Protocol PRN Reason: per Hypoglycemia Standing Ord. Ceftriaxone Sodium 1 gm/ (Sodium Chloride) 50 mls @ 100 mls/hr IV Q24H [facility] Last Infusion: 08/02/22 04:08 Dose: 0 mls/hr Documented By: ROSALBA Sodium Chloride (Ns) 1,000 mls @ 80 mls/hr IVCONT .[id number] [facility] Last Admin: 08/02/22 02:14 Dose: 80 mls/hr Documented By: ROSALBA Insulin Glargine (Insulin Glargine,Hum.Rec.Anlog 100 Unit/Ml 10 Ml Vial) 24 unit SUBCUT DAILY [facility] Last Admin: 08/02/22 08:47 Dose: 24 unit Documented By: VY Insulin Human Lispro (Insulin Lispro 100 Unit/Ml 3 Ml Vial) 0 unit SUBCUT QIDACHS [facility]; Protocol Last Admin: 08/02/22 07:33 Dose: Not Given Documented By: VY Non-Admin Reason: No Insulin Coverage Levothyroxine Sodium (Levothyroxine Sodium 112 Mcg Tablet) 112 mcg PO DAILY@06 [facility] Last Admin: 08/02/22 06:44 Dose: 112 mcg Documented By: ROSALBA Levothyroxine Sodium (Levothyroxine Sodium 25 Mcg Tablet) 25 mcg PO DAILY@06 [facility] Last Admin: 08/02/22 06:44 Dose: 25 mcg Documented By: ROSALBA Melatonin (Melatonin 3 Mg Tablet) 6 mg PO BEDTIME PRN PRN Reason: Insomnia Ondansetron HCl (Ondansetron Hcl 4 Mg/2 Ml Vial) 4 mg IVPUSH Q8H PRN PRN Reason: Nausea and Vomiting Last Admin: 08/01/22 16:55 Dose: 4 mg Documented By: VY Pharmacy Consult (Consult Rx Perform Med Rec) 1 each MISCELLANE ONCE PRN PRN Reason: Consult order Potassium Chloride (Potassium Chloride Er 20 Meq Tab.Er.Prt) 20 meq PO DAILY [facility] Last Admin: 08/02/22 07:42 Dose: 20 meq Documented By: VY Pravastatin Sodium (Pravastatin Sodium 40 Mg Tablet) 40 mg PO DAILY@1999 [facility] Last Admin: 08/01/22 21:46 Dose: Not Given Documented By: ROSALBA Non-Admin Reason: Patient Asleep Sodium Chloride (0.9 % Sodium Chloride Flush 3 Ml Syringe) 3 ml IVFLUSH QSHIFT [facility] Last Admin: 08/02/22 07:34 Dose: Not Given Documented By: VY Non-Admin Reason: IV Running Vitamin D (Cholecalciferol (Vitamin D3) 25 Mcg Tablet) 25 mcg PO DAILY [facility] Last Admin: 08/02/22 07:42 Dose: 25 mcg Documented By: VY Labs 08/01/22 05:10 08/01/22 05:10 Labs: Laboratory Results - last 24 hr 08/01/22 08/01/22 08/01/22 11:20 16:03 20:04 POC Glucose 191 H 146 H 140 H 08/02/22 08/02/22 08/02/22 06:32 07:05 07:18 POC Glucose 84 88 84 Microbiology Microbiology Results: Microbiology 08/01/22 Unknown Urine Culture - Preliminary Urine Catheterized - Feliz Catheter Gram negative zac 07/31/22 23:45 Blood Culture - Preliminary Blood - Venous No growth after 24 hours. 07/31/22 23:20 Blood Culture - Preliminary Blood - Venous No growth after 24 hours. Assessment and Plan (1) BERT (acute kidney injury): Status: Acute Plan This is 87-year-old female with pertinent history of essential hypertension, insulin-dependent diabetes mellitus, hypothyroidism, mixed hyperlipidemia was brought to the emergency department from assisted living facility for evaluation of decreased mentation, decreased p.o. intake and generalized abdominal discomfort. Acute metabolic encephalopathy in the setting of acute GNR UTI.? IV Rocephin.? Follow final urine culture neg blood cx after 24 hrs Insulin-dependent diabetes mellitus.? Accu-Cheks with sliding scale insulin Essential hypertension.? Continue home antihypertensives CKD 4 stable Hypothyroidism.? On Synthroid Mixed hyperlipidemia.? On statin DVT prophylaxis:? Lovenox DNR/DNI attending Dr. Torres continued hospital stay for IV antibiotics and urine cx pending Time Spent With Patient Time: Total time managing care of this patient today ____ minutes. Quality Stroke Does the patient have a stroke diagnosis?: No VTE Prior VTE?: No VTE Risk Level:: Medical - moderate - high VTE Device Contraindication: Treatment Not Indicated VTE Drug Contraindication: N/A - Med Ordered
[2022-08-02 11:24] LABS: Glucose, Whole Blood 209 mg/dL (60-115)
[2022-08-02] MEDS: Insulin Lispro 100 UNIT/ML 3 ML VIAL SUBCUT ×2 (12:04→21:20)
--- NOTE | 2022-08-02 14:40 | P.CDIM_ITS ---
PROVIDER RESPONSE TEXT: To clarify, the appropriate diagnosis supported by the clinical indicators: Obesity Due to excess calories QUERY TEXT: PHYSICIAN'S DOCUMENTATION REQUEST Date of Query: 08/02/2022 10:24 AM EDT Patient Name: Rose Velazquez Admit Date: 08/01/2022 Dear Padmini Marr, A review of the medical record indicates additional documentation may be needed. Please review below and update the documentation accordingly. Clinical Indicators: BMI: 33.8 5ft 4in 89.3kg If possible, please provide an associated diagnosis related to the abnormal BMI, such as: Overweight Obesity Due to excess calories Other Other (explain)Clinically unable to determine (explain)Thank you, Gauri Kelly, CCS, CDIS Use of terms such as suspected, likely, concern for, or probable (associated with a specific diagnosi s that is being evaluated, monitored, or treated as if it exists) are acceptable and can be coded in the inpatient se tting, when documented at the time of discharge. Please use your independent medical judgment in providing your response. THIS QUERY IS PART OF THE PERMANENT MEDICAL RECORD
[2022-08-02 16:00] VITALS: BP 158/70; PULSE 72; RESP 18; TEMP 36.4; O2SAT 95
[2022-08-02 16:22] LABS: Glucose, Whole Blood 125 mg/dL (60-115)
[2022-08-02 20:00] VITALS: BP 154/70; PULSE 71; RESP 18; TEMP 36.6; O2SAT 93
[2022-08-02] MEDS: Docusate Sodium 100 MG CAPSULE PO (20:18)
[2022-08-02] MEDS: Pravastatin Sodium 40 MG TABLET PO (20:18)
[2022-08-02 21:06] LABS: Glucose, Whole Blood 154 mg/dL (60-115)
[2022-08-03] MEDS: cefTRIAXone sodium 1 GM in 0.9 % Sodium Chloride 50 ML IV (02:11)
[2022-08-03] MEDS: Enoxaparin Sodium 40 MG/0.4 ML SYRINGE SUBCUT (02:14)
[2022-08-03] MEDS: 0.9 % Sodium Chloride 1,000 ML 80 ML IVCONT (03:46)
[2022-08-03 04:00] VITALS: BP 153/67; PULSE 68; RESP 16; TEMP 36.3; O2SAT 93
[2022-08-03] MEDS: Levothyroxine Sodium 112 MCG TABLET PO (06:25)
[2022-08-03] MEDS: Levothyroxine Sodium 25 MCG TABLET PO (06:25)
[2022-08-03 07:06] VITALS: PULSE 67; RESP 16; TEMP 36.4; O2SAT 98
[2022-08-03 07:29] LABS: Glucose, Whole Blood 91 mg/dL (60-115)
[2022-08-03] MEDS: Clopidogrel Bisulfate 75 MG TABLET PO (08:22)
[2022-08-03] MEDS: Potassium Chloride ER 20 MEQ TAB.ER.PRT PO (08:23)
[2022-08-03] MEDS: Furosemide 40 MG TABLET PO (08:23)
[2022-08-03] MEDS: amLODIPine Besylate 10 MG TABLET PO (08:23)
[2022-08-03] MEDS: Famotidine 20 MG TABLET PO (08:23)
[2022-08-03] MEDS: Cholecalciferol (Vitamin D3) 25 MCG TABLET PO (08:23)
[2022-08-03 08:38] VITALS: BP 140/50
[2022-08-03 11:29] LABS: Glucose, Whole Blood 151 mg/dL (60-115)
[2022-08-03] MEDS: Insulin Lispro 100 UNIT/ML 3 ML VIAL SUBCUT (11:40)
--- NOTE | 2022-08-03 11:56 | HO.PM.IMPN ---
Subjective Subjective Date of Service: 08/03/22 Review of Systems follow up UTI feeling better no pain Physical Exam Vital Signs: Vital Signs: Last Vital Signs Temp 97.5 F 08/03/22 07:06 Pulse 67 08/03/22 07:06 Resp 16 08/03/22 07:06 BP 140/50 H 08/03/22 08:38 Pulse Ox 98 08/03/22 07:06 O2 Del Method Room Air 08/03/22 07:06 BMI result Body Mass Index 33.8 Appearing in no acute distress lung sounds are clear to auscultation heart regular rate rhythm, clear S1, S2 positive bowel sounds, abdomen is soft, nontender neuro patient is alert x3, no focal deficits Objective Data Active Medications Acetaminophen (Acetaminophen 325 Mg Tablet) 650 mg PO Q6H PRN PRN Reason: Pain, Mild (Pain Scale 1-3) Last Admin: 08/01/22 11:36 Dose: 650 mg Documented By: VY Amlodipine Besylate (Amlodipine Besylate 10 Mg Tablet) 10 mg PO DAILY [facility]; Protocol Last Admin: 08/03/22 08:23 Dose: 10 mg Documented By: RODRIGUE Clopidogrel Bisulfate (Clopidogrel Bisulfate 75 Mg Tablet) 75 mg PO DAILY [facility] Last Admin: 08/03/22 08:22 Dose: 75 mg Documented By: RODRIGUE Dextrose (Dextrose 50 % 25 Gm/50 Ml Syringe) 25 gm IVPUSH Q15M PRN; Protocol PRN Reason: per Hypoglycemia Standing Ord. Docusate Sodium (Docusate Sodium 100 Mg Capsule) 100 mg PO MOWEFR@2000 [facility] Last Admin: 08/02/22 20:18 Dose: 100 mg Documented By: FRANK Enoxaparin Sodium (Enoxaparin Sodium 40 Mg/0.4 Ml Syringe) 40 mg SUBCUT Q24H [facility] Last Admin: 08/03/22 02:14 Dose: 40 mg Documented By: DAYRON Famotidine (Famotidine 20 Mg Tablet) 20 mg PO DAILY [facility] Last Admin: 08/03/22 08:23 Dose: 20 mg Documented By: RODRIGUE Furosemide (Furosemide 40 Mg Tablet) 40 mg PO DAILY [facility]; Protocol Last Admin: 08/03/22 08:23 Dose: 40 mg Documented By: RODRIGUE Glucose (Glucose Gel 15 Gm Gel..Gram.) 15 gm PO Q15M PRN; Protocol PRN Reason: per Hypoglycemia Standing Ord. Ceftriaxone Sodium 1 gm/ (Sodium Chloride) 50 mls @ 100 mls/hr IV Q24H [facility] Last Infusion: 08/03/22 02:41 Dose: 0 mls/hr Documented By: DAYRON Sodium Chloride (Ns) 1,000 mls @ 80 mls/hr IVCONT .[id number] [facility] Last Admin: 08/03/22 03:46 Dose: 80 mls/hr Documented By: DAYRON Insulin Glargine (Insulin Glargine,Hum.Rec.Anlog 100 Unit/Ml 10 Ml Vial) 24 unit SUBCUT DAILY [facility] Last Admin: 08/03/22 08:17 Dose: Not Given Documented By: RODRIGUE Non-Admin Reason: bs 91 Insulin Human Lispro (Insulin Lispro 100 Unit/Ml 3 Ml Vial) 0 unit SUBCUT QIDACHS [facility]; Protocol Last Admin: 08/03/22 11:40 Dose: 2 unit Documented By: RODRIGUE Levothyroxine Sodium (Levothyroxine Sodium 112 Mcg Tablet) 112 mcg PO DAILY@0600 [facility] Last Admin: 08/03/22 06:25 Dose: 112 mcg Documented By: DAYRON Levothyroxine Sodium (Levothyroxine Sodium 25 Mcg Tablet) 25 mcg PO DAILY@0600 [facility] Last Admin: 08/03/22 06:25 Dose: 25 mcg Documented By: DAYRON Melatonin (Melatonin 3 Mg Tablet) 6 mg PO BEDTIME PRN PRN Reason: Insomnia Ondansetron HCl (Ondansetron Hcl 4 Mg/2 Ml Vial) 4 mg IVPUSH Q8H PRN PRN Reason: Nausea and Vomiting Last Admin: 08/01/22 16:55 Dose: 4 mg Documented By: VY Pharmacy Consult (Consult Rx Perform Med Rec) 1 each MISCELLANE ONCE PRN PRN Reason: Consult order Potassium Chloride (Potassium Chloride Er 20 Meq Tab.Er.Prt) 20 meq PO DAILY [facility] Last Admin: 08/03/22 08:23 Dose: 20 meq Documented By: RODRIGUE Pravastatin Sodium (Pravastatin Sodium 40 Mg Tablet) 40 mg PO DAILY@1999 [facility] Last Admin: 08/02/22 20:18 Dose: 40 mg Documented By: FRANK Sodium Chloride (0.9 % Sodium Chloride Flush 3 Ml Syringe) 3 ml IVFLUSH QSHIFT [facility] Last Admin: 08/03/22 09:03 Dose: Not Given Documented By: RODRIGUE Non-Admin Reason: IV Running Vitamin D (Cholecalciferol (Vitamin D3) 25 Mcg Tablet) 25 mcg PO DAILY [facility] Last Admin: 08/03/22 08:23 Dose: 25 mcg Documented By: RODRIGUE Labs 08/01/22 05:10 08/01/22 05:10 Labs: Laboratory Results - last 24 hr 08/02/22 08/02/22 08/03/22 16:03 20:46 07:15 POC Glucose 125 H 154 H 91 08/03/22 11:21 POC Glucose 151 H Microbiology Microbiology Results: Microbiology 08/01/22 Unknown Urine Culture - Final Urine Catheterized - Feliz Catheter Escherichia coli 07/31/22 23:45 Blood Culture - Preliminary Blood - Venous No growth after 48 hours. 07/31/22 23:20 Blood Culture - Preliminary Blood - Venous No growth after 48 hours. Assessment and Plan (1) BERT (acute kidney injury): Status: Acute Plan This is 87-year-old female with pertinent history of essential hypertension, insulin-dependent diabetes mellitus, hypothyroidism, mixed hyperlipidemia was brought to the emergency department from assisted living facility for evaluation of decreased mentation, decreased p.o. intake and generalized abdominal discomfort. Acute metabolic encephalopathy in the setting of acute ecoli UTI. encephalopathy resolved ? continue IV Rocephin.? neg blood cx after 48 hrs Insulin-dependent diabetes mellitus.? Accu-Cheks with sliding scale insulin Essential hypertension.? Continue home antihypertensives CKD 4 stable Hypothyroidism.? On Synthroid Mixed hyperlipidemia.? On statin DVT prophylaxis:? Lovenox DNR/DNI attending Dr. Torres DISPO dc to [facility] tommorrow continued hospital stay for IV antibiotics Time Spent With Patient Time: Total time managing care of this patient today ____ minutes. Quality Stroke Does the patient have a stroke diagnosis?: No VTE Prior VTE?: No VTE Risk Level:: Medical - moderate - high VTE Device Contraindication: Treatment Not Indicated VTE Drug Contraindication: N/A - Med Ordered
--- NOTE | 2022-08-03 11:58 | PM.DS ---
DS: Providers Provider Date of admission: 08/01/22 01:43 Primary care physician: Shelly Smith NP DS: Diagnosis Discharge Diagnosis (1) BERT (acute kidney injury): Status: Acute DS: Summary Hospital Course Hospital Course: History and physical as per admitting provider. This is 87-year-old female with pertinent history of essential hypertension, insulin-dependent diabetes mellitus, hypothyroidism, mixed hyperlipidemia was brought to the emergency department from assisted living facility for evaluation of decreased mentation, decreased p.o. intake and generalized abdominal discomfort.? Unable to obtain history from the patient.? History obtained from daughter at bedside and ER provider.? Patient started having nausea and lower abdominal pain 1 day prior to presentation.? On the day of presentation, patient with poor p.o. intake, nausea and nonbloody emesis.? She was lethargic and drowsy.? The daughter states that patient does have a history of recurrent UTIs.? No fever, chills, changes in urinary or bowel habits.? Unable to obtain review of systems. Acute metabolic encephalopathy in the setting of acute E coli UTI.?Encephalopathy resolved. She did with IV Rocephin. Blood cultures negative after 48 hours. Continue Ceftin for 2 more days. Essential hypertension.? Continue home antihypertensives CKD 4. stable Hypothyroidism.? On Synthroid Mixed hyperlipidemia.? On statin Time Spent with Patient Time attestation: Total time managing care of this patient today ____ minutes. Physical Exam Vital Signs: Vital Signs: Last Vital Signs Temp 97.5 F 08/03/22 07:06 Pulse 67 08/03/22 07:06 Resp 16 08/03/22 07:06 BP 140/50 H 08/03/22 08:38 Pulse Ox 98 08/03/22 07:06 O2 Del Method Room Air 08/03/22 07:06 BMI result Body Mass Index 33.8 DS: Data Data Completed and Pending Labs on day of discharge: Laboratory Results - last 24 hr 08/02/22 08/02/22 08/03/22 16:03 20:46 07:15 POC Glucose 125 H 154 H 91 08/03/22 11:21 POC Glucose 151 H Preliminary micro results at discharge 07/31/22 23:45 Blood Culture - Preliminary Blood - Venous No growth after 48 hours. 07/31/22 23:20 Blood Culture - Preliminary Blood - Venous No growth after 48 hours. Discharge Plan Discharge Referrals: Shelly Smith NP [Primary Care Provider] - 1 Week Discharge Medications: No Action furosemide 40 mg tablet 40 mg PO DAILY levothyroxine 137 mcg tablet 137 mcg PO DAILY@0600 pravastatin 40 mg tablet 40 mg PO DAILY@2000 potassium chloride 10 mEq tablet extended release 20 meq PO DAILY clopidogrel 75 mg tablet 75 mg PO DAILY famotidine 20 mg tablet 20 mg PO DAILY amlodipine 10 mg tablet 10 mg PO DAILY docusate sodium [Stool Softener] 100 mg Capsule 100 mg PO MOWEFR@2000 insulin aspart U-100 [Novolog FlexPen U-100 Insulin] 100 unit/mL (3 mL) insulin pen See Protocol subcut DAILY Protocol: Insulin Correction Scale Less than or equal to 110 ---- Give (units): 0 111 to 150 Give (units): 0 151 to 200 Give (units): 0 201 to 250 Give (units): 2 251 to 300 Give (units): 4 301 to 350 Give (units): 6 Greater than 350 Give (units): 8 Call if Blood Glucose > : 350 Levemir FlexPen 100 unit/mL (3 mL) insulin pen 65 unit subcut DAILY@0600 cranberry conc-ascorbic acid 4,200-20 mg Capsule 1 cap PO DAILY cholecalciferol (vitamin D3) [Vitamin D3] 25 mcg (1,000 unit) Capsule 25 mcg PO DAILY
[2022-08-03 14:41] VITALS: PULSE 67; O2SAT 93
[2022-08-03] MEDS: 0.9 % Sodium Chloride Flush 3 ML SYRINGE IVFLUSH ×2 (15:07→23:42)
[2022-08-03 15:27] VITALS: BP 138/46; PULSE 71; RESP 16; TEMP 36.3; O2SAT 97
[2022-08-03 16:12] LABS: Glucose, Whole Blood 125 mg/dL (60-115)
[2022-08-03 19:39] VITALS: BP 158/74; PULSE 81; RESP 18; TEMP 36.7; O2SAT 96
[2022-08-03] MEDS: Pravastatin Sodium 40 MG TABLET PO (21:52)
[2022-08-03 21:54] LABS: Glucose, Whole Blood 163 mg/dL (60-115)
[2022-08-03] MEDS: Melatonin 3 MG TABLET 6 MG PO (21:56)
--- NOTE | 2022-08-03 21:57 | PC.NURSE ---
Patient requested only 3mg of Melatonin tonight
[2022-08-04] MEDS: cefTRIAXone sodium 1 GM in 0.9 % Sodium Chloride 50 ML IV (01:00)
[2022-08-04 03:12] VITALS: BP 173/71; PULSE 95; RESP 18; TEMP 36.6; O2SAT 96
[2022-08-04] MEDS: Enoxaparin Sodium 40 MG/0.4 ML SYRINGE SUBCUT (06:06)
[2022-08-04] MEDS: Levothyroxine Sodium 112 MCG TABLET PO (06:06)
[2022-08-04] MEDS: Levothyroxine Sodium 25 MCG TABLET PO (06:06)
[2022-08-04 07:31] VITALS: BP 128/60; PULSE 98; RESP 17; TEMP 36.4; O2SAT 96
[2022-08-04 07:34] LABS: Glucose, Whole Blood 252 mg/dL (60-115)
[2022-08-04] MEDS: amLODIPine Besylate 10 MG TABLET PO (08:00)
[2022-08-04] MEDS: Cholecalciferol (Vitamin D3) 25 MCG TABLET PO (08:00)
[2022-08-04] MEDS: Furosemide 40 MG TABLET PO (08:00)
[2022-08-04] MEDS: Potassium Chloride ER 20 MEQ TAB.ER.PRT PO (08:00)
[2022-08-04] MEDS: Clopidogrel Bisulfate 75 MG TABLET PO (08:00)
[2022-08-04] MEDS: Famotidine 20 MG TABLET PO (08:00)
[2022-08-04] MEDS: Insulin Glargine,Hum.rec.anlog 100 UNIT/ML 10 ML VIAL 24 UNIT SUBCUT (08:01)
[2022-08-04] MEDS: Insulin Lispro 100 UNIT/ML 3 ML VIAL SUBCUT ×3 (08:01→17:10)
[2022-08-04] MEDS: 0.9 % Sodium Chloride Flush 3 ML SYRINGE IVFLUSH ×3 (08:01→20:08)
--- NOTE | 2022-08-04 08:28 | PM.DS ---
DS: Providers Provider Date of Service: 08/05/22 Date of admission: 08/01/22 01:43 Primary care physician: Shelly Smith NP DS: Diagnosis Discharge Diagnosis (1) BERT (acute kidney injury): Status: Acute DS: Summary Hospital Course Hospital Course: Admission HPI History and physical as per admitting provider. This is 87-year-old female with pertinent history of essential hypertension, insulin-dependent diabetes mellitus, hypothyroidism, mixed hyperlipidemia was brought to the emergency department from assisted living facility for evaluation of decreased mentation, decreased p.o. intake and generalized abdominal discomfort.? Unable to obtain history from the patient.? History obtained from daughter at bedside and ER provider.? Patient started having nausea and lower abdominal pain 1 day prior to presentation.? On the day of presentation, patient with poor p.o. intake, nausea and nonbloody emesis.? She was lethargic and drowsy.? The daughter states that patient does have a history of recurrent UTIs.? No fever, chills, changes in urinary or bowel habits.? Unable to obtain review of systems. Hospital course: Patient presented with acute confusion and found to hve urniary tract infection and was suffering from metabolic encephalopathy as result of the UTI. UTI was treated with IV Ceftriaxone, urine culture grew E. coli, overall is has improved but generally weak. PT is recommending short term rehab before returning to assisted living. Will complete 5 days of antibiotics for the UTI Acute metabolic encephalopathy in the setting of acute E coli UTI.?Encephalopathy resolved. She was treated with IV Rocephin. Blood cultures negative after 48 hours. Continue Ceftin for 1 more days. Essential hypertension.? Continue home antihypertensives CKD 4. stable Hypothyroidism.? On Synthroid Mixed hyperlipidemia.? On statin to short term rehab for less than 30 days Time Spent with Patient Time attestation: Total time managing care of this patient today ____ minutes. Discharge coordination time: Greater than 30 minutes Quality: Safe Use of Opioids Does Pt have an Active Cancer Diagnosis on the Problem List?: No Quality: Stroke Does the patient have a stroke diagnosis?: No Physical Exam Vital Signs: Vital Signs: Last Vital Signs Temp 97.5 F 08/04/22 07:31 Pulse 98 08/04/22 07:31 Resp 17 08/04/22 07:31 BP 128/60 06/28/23 07:31 Pulse Ox 96 08/04/22 07:31 O2 Del Method Room Air 08/04/22 07:31 BMI result Body Mass Index 33.8 DS: Data Data Completed and Pending Labs on day of discharge: Laboratory Results - last 24 hr 08/03/22 08/03/22 08/03/22 11:21 15:59 21:50 POC Glucose 151 H 125 H 163 H 08/04/22 07:28 POC Glucose 252 H Preliminary micro results at discharge 07/31/22 23:45 Blood Culture - Preliminary Blood - Venous No growth after 48 hours. 07/31/22 23:20 Blood Culture - Preliminary Blood - Venous No growth after 48 hours. Discharge Plan Discharge Anticipated Discharge Date/Time: 08/05/22 14:41 Patient Disposition: Home Health Service Discharge Diagnosis: metabolic encephlopathy, uti, BERT [facility]errals: [facility] [Outside] - 1 Week Shelly Smith NP [Primary Care Provider] - 1 Week Discharge Medications: New cefuroxime axetil 250 mg tablet 250 mg PO BID Qty: 2 0RF Continued furosemide 40 mg tablet 40 mg PO DAILY levothyroxine 137 mcg tablet 137 mcg PO DAILY@0600 pravastatin 40 mg tablet 40 mg PO DAILY@2000 potassium chloride 10 mEq tablet extended release 20 meq PO DAILY clopidogrel 75 mg tablet 75 mg PO DAILY famotidine 20 mg tablet 20 mg PO DAILY amlodipine 10 mg tablet 10 mg PO DAILY docusate sodium [Stool Softener] 100 mg Capsule 100 mg PO MOWEFR@2000 insulin aspart U-100 [Novolog FlexPen U-100 Insulin] 100 unit/mL (3 mL) insulin pen See Protocol subcut DAILY Protocol: Insulin Correction Scale Less than or equal to 110 ---- Give (units): 0 111 to 150 Give (units): 0 151 to 200 Give (units): 0 201 to 250 Give (units): 2 251 to 300 Give (units): 4 301 to 350 Give (units): 6 Greater than 350 Give (units): 8 Call MD if Blood Glucose > : 350 Levemir FlexPen 100 unit/mL (3 mL) insulin pen 65 unit subcut DAILY@0600 cranberry conc-ascorbic acid 4,200-20 mg Capsule 1 cap PO DAILY cholecalciferol (vitamin D3) [Vitamin D3] 25 mcg (1,000 unit) Capsule 25 mcg PO DAILY Discharge Orders: Discharge Order (Routine); Ordered 08/05/22 Ordered By: Jayy Barakat Diet: Advance to usual diet Activity on Discharge: As tolerated Stand Alone Forms: Patient Portal Discharge page Care Plan Goals: Full recovery from uti Health Concerns: uti metabolic encephalopathy acute kidney injury Plan of Treatment: take ceftin 250 mg twice daily for one more day to treat uti Assessment: as above Discharge Date/Time: 08/05/22 17:22
[2022-08-04 10:10] VITALS: BP 139/61
[2022-08-04 11:26] LABS: Glucose, Whole Blood 170 mg/dL (60-115)
--- NOTE | 2022-08-04 12:36 | MHC.CM.PN ---
Addendum entered by Sarah Perry 08/04/22 16:31: Authorization was not received prior to the close of Case management. Transport has been cancelled. Addendum entered by Sarah Perry 08/04/22 16:09: Spoke with Erica Dumas. [facility] is requesting additional PT documentation. Info sent via [facility]mittor. Auth is still pending. Original Note: Patient 1st choice for STR is [facility]. They have offered a bed pending insurance authorization. DC today to [facility] via BLS.
[2022-08-04 15:25] VITALS: BP 167/71; PULSE 77; RESP 21; TEMP 36.1; O2SAT 95
[2022-08-04 16:34] LABS: Glucose, Whole Blood 153 mg/dL (60-115)
[2022-08-04 20:00] VITALS: BP 143/65; PULSE 71; RESP 16; TEMP 37; O2SAT 96
[2022-08-04 20:27] LABS: Glucose, Whole Blood 127 mg/dL (60-115)
[2022-08-04] MEDS: Pravastatin Sodium 40 MG TABLET PO (21:08)
[2022-08-04] MEDS: Docusate Sodium 100 MG CAPSULE PO (21:08)
[2022-08-05] MEDS: cefTRIAXone sodium 1 GM in 0.9 % Sodium Chloride 50 ML IV (01:23)
[2022-08-05 04:00] VITALS: BP 140/65; PULSE 65; RESP 16; TEMP 36.4; O2SAT 96
[2022-08-05 07:34] LABS: Glucose, Whole Blood 129 mg/dL (60-115)
[2022-08-05 08:00] VITALS: BP 159/87; PULSE 69; RESP 16; TEMP 36.3; O2SAT 97
[2022-08-05] MEDS: Enoxaparin Sodium 40 MG/0.4 ML SYRINGE SUBCUT (09:02)
[2022-08-05] MEDS: Furosemide 40 MG TABLET PO (09:03)
[2022-08-05] MEDS: Potassium Chloride ER 20 MEQ TAB.ER.PRT PO (09:03)
[2022-08-05] MEDS: Cholecalciferol (Vitamin D3) 25 MCG TABLET PO (09:03)
[2022-08-05] MEDS: Insulin Glargine,Hum.rec.anlog 100 UNIT/ML 10 ML VIAL 24 UNIT SUBCUT (09:03)
[2022-08-05] MEDS: Clopidogrel Bisulfate 75 MG TABLET PO (09:04)
[2022-08-05] MEDS: Famotidine 20 MG TABLET PO (09:04)
[2022-08-05] MEDS: 0.9 % Sodium Chloride Flush 3 ML SYRINGE IVFLUSH (09:04)
[2022-08-05] MEDS: amLODIPine Besylate 10 MG TABLET PO (09:04)
--- NOTE | 2022-08-05 10:09 | HO.PM.IMPN ---
Subjective Subjective Date of Service: 08/05/22 Interval History: f/u on uti with metabolic encephalopathy calm this morning Physical Exam Vital Signs: Vital Signs: Last Vital Signs Temp 97.4 F 08/05/22 08:00 Pulse 69 08/05/22 08:00 Resp 16 08/05/22 08:00 BP 159/87 H 08/05/22 08:00 Pulse Ox 97 08/05/22 08:00 O2 Del Method Room Air 08/05/22 08:00 BMI result Body Mass Index 33.8 Const: Other: General: AO X 3, no acute distress Resp: CTA bilateral CVS: S1,S2,RRR GI: +BS, NT, no distention Skin: No rash Neuro: motor grossly intact Psych: appropriate affect Objective Data Active Medications Acetaminophen (Acetaminophen 325 Mg Tablet) 650 mg PO Q6H PRN PRN Reason: Pain, Mild (Pain Scale 1-3) Last Admin: 08/01/22 11:36 Dose: 650 mg Documented By: VY Amlodipine Besylate (Amlodipine Besylate 10 Mg Tablet) 10 mg PO DAILY [facility]; Protocol Last Admin: 08/05/22 09:04 Dose: 10 mg Documented By: SHAKEEL Clopidogrel Bisulfate (Clopidogrel Bisulfate 75 Mg Tablet) 75 mg PO DAILY [facility] Last Admin: 08/05/22 09:04 Dose: 75 mg Documented By: SHAKEEL Dextrose (Dextrose 50 % 25 Gm/50 Ml Syringe) 25 gm IVPUSH Q15M PRN; Protocol PRN Reason: per Hypoglycemia Standing Ord. Docusate Sodium (Docusate Sodium 100 Mg Capsule) 100 mg PO MOWEFR@1999 [facility] Last Admin: 08/04/22 21:08 Dose: 100 mg Documented By: LORI Enoxaparin Sodium (Enoxaparin Sodium 40 Mg/0.4 Ml Syringe) 40 mg SUBCUT Q24H [facility] Last Admin: 08/05/22 09:02 Dose: 40 mg Documented By: SHAKEEL Famotidine (Famotidine 20 Mg Tablet) 20 mg PO DAILY [facility] Last Admin: 08/05/22 09:04 Dose: 20 mg Documented By: SHAKEEL Furosemide (Furosemide 40 Mg Tablet) 40 mg PO DAILY [facility]; Protocol Last Admin: 08/05/22 09:03 Dose: 40 mg Documented By: SHAKEEL Glucose (Glucose Gel 15 Gm Gel..Gram.) 15 gm PO Q15M PRN; Protocol PRN Reason: per Hypoglycemia Standing Ord. Ceftriaxone Sodium 1 gm/ (Sodium Chloride) 50 mls @ 100 mls/hr IV Q24H [facility] Last Infusion: 08/05/22 01:56 Dose: 0 mls/hr Documented By: LORI Insulin Glargine (Insulin Glargine,Hum.Rec.Anlog 100 Unit/Ml 10 Ml Vial) 24 unit SUBCUT DAILY [facility] Last Admin: 08/05/22 09:03 Dose: 24 unit Documented By: SHAKEEL Insulin Human Lispro (Insulin Lispro 100 Unit/Ml 3 Ml Vial) 0 unit SUBCUT QIDACHS [facility]; Protocol Last Admin: 08/05/22 08:17 Dose: Not Given Documented By: SHAKEEL Non-Admin Reason: No Insulin Coverage Levothyroxine Sodium (Levothyroxine Sodium 112 Mcg Tablet) 112 mcg PO DAILY@0600 [facility] Last Admin: 08/04/22 06:06 Dose: 112 mcg Documented By: ELIO Levothyroxine Sodium (Levothyroxine Sodium 25 Mcg Tablet) 25 mcg PO DAILY@0600 [facility] Last Admin: 08/04/22 06:06 Dose: 25 mcg Documented By: ELIO Melatonin (Melatonin 3 Mg Tablet) 6 mg PO BEDTIME PRN PRN Reason: Insomnia Last Admin: 08/03/22 21:56 Dose: 3 mg Documented By: FRANK Ondansetron HCl (Ondansetron Hcl 4 Mg/2 Ml Vial) 4 mg IVPUSH Q8H PRN PRN Reason: Nausea and Vomiting Last Admin: 08/01/22 16:55 Dose: 4 mg Documented By: VY Pharmacy Consult (Consult Rx Perform Med Rec) 1 each MISCELLANE ONCE PRN PRN Reason: Consult order Potassium Chloride (Potassium Chloride Er 20 Meq Tab.Er.Prt) 20 meq PO DAILY [facility] Last Admin: 08/05/22 09:03 Dose: 20 meq Documented By: SHAKEEL Pravastatin Sodium (Pravastatin Sodium 40 Mg Tablet) 40 mg PO DAILY@1999 [facility] Last Admin: 08/04/22 21:08 Dose: 40 mg Documented By: LORI Sodium Chloride (0.9 % Sodium Chloride Flush 3 Ml Syringe) 3 ml IVFLUSH QSHIFT [facility] Last Admin: 08/05/22 09:04 Dose: 3 ml Documented By: SHAKEEL Vitamin D (Cholecalciferol (Vitamin D3) 25 Mcg Tablet) 25 mcg PO DAILY [facility] Last Admin: 08/05/22 09:03 Dose: 25 mcg Documented By: SHAKEEL Labs 08/01/22 05:10 08/01/22 05:10 Labs: Laboratory Results - last 24 hr 08/04/22 08/04/22 08/04/22 11:22 16:07 20:20 POC Glucose 170 H 153 H 127 H 08/05/22 07:26 POC Glucose 129 H Assessment and Plan (1) BERT (acute kidney injury): Status: Acute Plan ? Patient presented with acute confusion and found to hve urniary tract infection and? was sufferingfrom metabolic encephalopathy as result of the UTI. UTI was treated with IV Ceftriaxone, urine culture grew E. coli,? overall is has improved but generally weak. PT is recommending short term rehab before returning to assisted living. Will complete 5 days of antibiotics for the UTI Acute metabolic encephalopathy in the setting of acute E coli UTI.?Encephalopathy resolved.? She was treated with IV Rocephin.? Blood cultures negative after 48 hours.? Continue Ceftin for 1 more days. Essential hypertension.? Continue home antihypertensives CKD 4. stable Hypothyroidism.? On Synthroid Mixed hyperlipidemia.? On statin to short term rehab for less than 30 days when bed available Time Spent With Patient Time: Total time managing care of this patient today ____ minutes. Quality Stroke Does the patient have a stroke diagnosis?: No VTE Prior VTE?: No VTE Risk Level:: Medical - moderate - high VTE Device Contraindication: Treatment Not Indicated VTE Drug Contraindication: N/A - Med Ordered
[2022-08-05 11:28] LABS: Glucose, Whole Blood 252 mg/dL (60-115)
[2022-08-05] MEDS: Insulin Lispro 100 UNIT/ML 3 ML VIAL SUBCUT (12:30)
--- NOTE | 2022-08-05 15:30 | MHC.CM.PN ---
[facility] HAS DENIED STR AUTH FOR THIS PT CM SPOKE TO PTS DAUGHTER KORI WHO REPORTS THE PT CAN RETURN TO THE CARE HOME WITH PT CM SPOKE TO DIDI, THE NURSE AT THE [facility], WHO REPORTS THEY TYPICALLY USE [facility] REFERRAL MADE AND ACCEPTED PTS DAUGHTER WILL TRANSPORT AFTER 1600 HOURS
[2022-08-05 16:40] LABS: Glucose, Whole Blood 69 mg/dL (60-115)
[2022-08-05 17:04] LABS: Glucose, Whole Blood 95 mg/dL (60-115)
== END 2022-08-05 17:22 | disposition home health service (06) | DRG 689 ==
LOC: HO.ED 08-01 01:32 → HO.EDOVER 08-01 01:49 → HO.S3 08-01 07:50
PROVIDERS: Nurse Practitioner Acute Care; Admitting Provider Student in an Organized Health Care Education/Training Program; Emergency Provider Internal Medicine; PCP Nurse Practitioner Family; Visit Provider Internal Medicine
DX: N39.0 Urinary tract infection, site not specified (principal); G93.41 Metabolic encephalopathy; N18.4 Chronic kidney disease, stage 4 (severe); N17.9 Acute kidney failure, unspecified; I12.9 Hypertensive chronic kidney disease with stage 1 through stage 4 chronic kidney disease, or unspecified chronic kidney disease; E11.22 Type 2 diabetes mellitus with diabetic chronic kidney disease; E03.9 Hypothyroidism, unspecified; Z66 Do not resuscitate; B96.20 Unspecified Escherichia coli [E. coli] as the cause of diseases classified elsewhere; E78.2 Mixed hyperlipidemia; Z87.440 Personal history of urinary (tract) infections; Z88.2 Allergy status to sulfonamides; Z79.4 Long term (current) use of insulin; Z79.890 Hormone replacement therapy; Z79.899 Other long term (current) drug therapy
CPT/HCPCS: 36415; 74176; 80048; 80053; 81001; 82947; 83605; 83690; 85025; 87040; 87086; 87088; 87186; 97116; 97162; 97530; 99285; J0696; J1650; J2405; J2543

== ENCOUNTER 2023-05-15 10:38 | Emergency (ER) | payer MEDICARE, SELFPAY ==
[2023-05-15 10:46] VITALS: BP 143/73; PULSE 86; O2SAT 95
[2023-05-15 10:59] VITALS: BMI 33.5
[2023-05-15 11:00] VITALS: BP 137/52; PULSE 81; RESP 20; TEMP 36.3; O2SAT 97
--- OUTSIDE RECORDS SUMMARY | 2023-05-15 11:04 | XMS_ITS | Continuity of Care Document ---
Author Organization [facility] Address [address] [place] [address]- Care Team Providers Care Marble Installer Name Role Phone Luis ASHLEY, Shelly Villareal Primary Care Physician Encounter [facility] Date(s): 08/19/22 - 09/18/22 [facility] [address] [place] [id number]- Attending Physician: Francisca Maradiaga Admitting Physician: Francisca [...] pneumococcal 23-valent vaccine 01/18/11 Given 1Result Comment: [id number] [facility] 4Result Comment: [10/25/2014] [facility] 5[facility] Note[facility] 6Admin Note: Declined 7Admin Note: [facility] 8Result Comment: [facility] [id number] [facility] 10Admin Note: Had hx of Shingles 11Admin Note[facility] Medications amLODIPine 10 mg oral tablet 1 tablet, By Mouth, Daily, # 90 tablet, 1 Refills, Maintenance, 04/07/22 4:59:00 EST, [facility], 151.6, cm, 02/19/22 14:08:00 EST, Height Start Date: 04/07/22 Status: Ordered clopidogrel 75 mg oral tablet 1, tablet, By Mouth, Daily, # 90 tablet, Refills 3, Maintenance, 01/01/22 10:26:00 EST, Route to Pharmacy Electronically, [facility], 151.6, cm, 10/15/21 10:07:00 EDT, Height Start [...] capsule, 0 Refills, Maintenance, 05/26/20 9:11:00 EDT, [id number], Partial fill upon patient request if the prescription is for a schedule II opioid drug., 151.6, cm, 05/26/20 8:48:00 EDT, Height Start Date: 05/26/20 Status: Ordered famotidine 20 mg oral tablet 1, tablet, By Mouth, Daily, # 90 tablet, Refills 0, Maintenance, 07/04/22 21:42:00 EDT, Route to Pharmacy Electronically, [facility], 151.6, cm, 02/19/22 14:08:00 EST, Height Start [...] 3 Refills, Maintenance, 06/16/22 11:19:00 EDT, Solution, [facility]/pharmacy #[id number], Levemir flex pen; 100 units/ml; Dispense 4 boxes, 151.6, cm, 02/19/22 14:08:00 EST, Height Start Date: 06/16/22 Stop Date: 06/11/23 Status: Ordered levothyroxine 0.137 mg oral tablet 1 tablet, By Mouth, Daily, # 90 tablet, 0 Refills, Maintenance, 08/01/22 20:29:00 EDT, [facility], 151.6, cm, 02/19/22 14:08:00 EST, Height Start Date: 08/01/22 Status: Ordered NovoLOG FlexPen 100 units/mL injectable solution See Instructions, INJECT SUBCUTANEOUSLY ONCE DAILY PER SLIDING SCALE, MAX OF 24 UNITS DAILY, # 15 Unknown, 1 Refills, [facility], 151.6, cm, 05/26/20 8:48:00 EDT, Height Start [...] Weight Start Date: 07/09/19 Status: Ordered Pen [place], 31 G x 5 mm BD Ultra Fine III See Instructions, # 100 each, Refills 5, Tot. Refills 5, Maintenance, Use as daily with insulin Dx:Type 2 DM, E11.9, 10/26/21 4:43:00 EDT, Compound, 151.6, cm, 10/15/21 10:07:00 EDT, Height Start Date: 10/26/21 Stop Date: 04/24/22 Status: Ordered Potassium Chloride (Mpy-Tkdf-Ktn 10) 10 mEq oral tablet, extended release 2 tablet, By Mouth, Daily, # 180 tablet, 3 Refills, Maintenance, 09/01/22 16:51:00 EDT, [facility], 151.6, cm, 08/19/22 14:18:00 EDT, Height Start Date: 09/01/22 Status: Ordered pravastatin 40 mg oral tablet 1 tablet, By Mouth, Daily, # 90 tablet, 1 Refills, Maintenance, 05/23/22 9:17:00 EDT, [facility], 151.6, cm, 02/19/22 14:08:00 EST, Height Start [...] 100 in lifetime) entered on: 11/23/19 Sex EKG study * Event Display: EKG Authored Date: Cardiology * Natasha Fitch: PERFORM Event Display: Cardiovascular Results Scanned Authored Date: Radiology * Event Display: Ultrasound Lower Extremity, Non-BH Authored Date: * Ashlie Guerrero: PERFORM Event Display: Radiology Results Scanned Authored Date: [id number] * Ashlie Guerrero: PERFORM Event Display: Radiology Results Scanned Authored Date: [id number] Patient Care team information Care Team Personnel Name: Shelly Smith NP Position: [facility] PCO Associate Professional Member Role: PCP Address: Address: [address] [place] [id number]- Name: Zbigniew GARSIA, Janina Position: S RN Member Role: Primary Care Nurse Care Team Related Persons Name: KORI WATTERS Address: home [address] [place] [address] Name: COREY OLSEN Address: [place] [address]
--- OUTSIDE RECORDS SUMMARY | 2023-05-15 11:04 | XMS_ITS | Continuity of Care Document ---
Author Organization [facility] Adult Address [address] [place] [address]- Care Team Providers Care Investigator Claims Name Role Phone Luis CHANGE MANAGEMENT COORDINATOR, Shelly Villareal Primary Care Physician Encounter [facility] Date(s): 02/01/23 - 03/03/23 [facility] [address] [place] [address]- Allergies, Adverse Reactions, Alerts Substance Reaction Severity [...] pneumococcal 23-valent vaccine 01/18/11 Given 1Result Comment: [id number] 2[facility] Note[facility] 3[facility] 4Result Comment: [10/25/2014] HIGH DOSE [facility] 6Admin Note: Declined 7Admin Note: [facility] 8Result Comment: [facility] [id number] 9Admin Note[facility] 10Admin Note: Had hx of Shingles 11Admin Note[facility] Medications amLODIPine 10 mg oral tablet 1 tablet, By Mouth, Daily, # 90 tablet, 1 Refills, Maintenance, 10/01/22 19:12:00 EDT, [facility], 151.6, cm, 08/19/22 14:18:00 EDT, Height Start Date: 10/01/22 Status: Ordered BD UF MINI PEN NEEDLE [id number] BD UF MINI PEN NEEDLE [id number], See Instructions, # 90 Unknown, 6 Refills, Maintenance, USE DAILY WITH INSULIN, 12/31/22 10:17:00 EST, 151.6, cm, 08/19/22 14:18:00 EDT, Height Start Date: 12/31/22 Status: Ordered clopidogrel 75 mg oral tablet 1, tablet, By Mouth, Daily, # 90 tablet, Refills 3, Maintenance, 01/03/23 14:14:00 EST, Route to Pharmacy Electronically, [facility], 151.6, cm, 08/19/22 14:18:00 EDT, Height Start Date: 01/03/23 Status: Ordered Compression stockings 20-30 mmhg Compression [...] Maintenance, 05/26/20 9:11:00 EDT, [facility]/pharmacy #[id number], Partial fill upon patient request if the prescription is for a schedule II opioid drug., 151.6, cm, 05/26/20 8:48:00 EDT, Height Start Date: 05/26/20 Status: Ordered famotidine 20 mg oral tablet 1, tablet, By Mouth, Daily, # 90 tablet, Refills 1, Maintenance, 12/29/22 20:19:00 EST, Route to Pharmacy Electronically, [facility] STORE 10977, 151.6, cm, 08/19/22 14:18:00 EDT, Height Start Date: 12/29/22 Status: Ordered Freestyle Francheska Monitor See Instructions, [...] Solostar Pen 100 units/mL subcutaneous solution = 65 units, Subcutaneous Injection, Daily at bedtime, # 15 mL, 11 Refills, Maintenance, 02/01/23 15:49:00 EST, Solution, [facility]/pharmacy #[id number], Partial fill upon patient request if the prescription is for a schedule II opioid drug., 151.6, cm, 08/19/22 1... Start Date: 02/01/23 Stop Date: 01/27/24 Status: Ordered Levemir 100 units/mL subcutaneous solution [...] Daily, # 90 tablet, 0 Refills, Maintenance, 01/20/23 9:01:00 EST, [facility], 151.6, cm, 08/19/22 14:18:00 EDT, Height Start Date: 01/20/23 Status: Ordered NovoLOG FlexPen 100 units/mL injectable solution See Instructions, INJECT SUBCUTANEOUSLY ONCE DAILY PER SLIDING SCALE, MAX OF 24 UNITS DAILY, # 15 Unknown, 1 Refills, Maintenance, 11/22/22 15:26:00 EDT, [facility], 151.6, cm, 08/19/22 14:18:00EDT, Height Start Date: 11/22/22 Status: Ordered One Touch Ultra 2 Glucose [...] Weight Start Date: 07/09/19 Status: Ordered Pen [place], 31 G x 5 mm BD Ultra Fine III See Instructions, # 100 each, Refills 5, Tot. Refills 5, Maintenance, Use as daily with insulin Dx:Type 2 DM, E11.9, 10/26/21 4:43:00 EDT, Compound, 151.6, cm, 10/15/21 10:07:00 EDT, Height Start Date: 10/26/21 Stop Date: 04/24/22 Status: Ordered Potassium Chloride (Kyn-Pbxe-Tsg 10) 10 mEq oral tablet, extended release 2 tablet, By Mouth, Daily, # 180 tablet, 3 Refills, Maintenance, 09/01/22 16:51:00 EDT, [facility], 151.6, cm, 08/19/22 14:18:00 EDT, Height Start Date: 09/01/22 Status: Ordered pravastatin 40 mg oral tablet 1 tablet, By Mouth, Daily, # 90 tablet, 1 Refills, Maintenance, 11/20/22 10:45:00 EDT, [facility], 151.6, cm, 08/19/22 14:18:00 EDT, Height Start Date: 11/20/22 Status: Ordered Vitamin D3 1000 intl units [...] (less than 100 in lifetime) entered on: 10/16/20 Sex Patient Care team information Care Team Personnel Name: Luis ASHLEY, Shelly Villareal Position: [facility] PCO Associate Professional Member Role: PCP Address: Address: [address] [place] [address] [address] [place] [address]- Name: Janina Coy RN Position: [facility] RN Member Role: Primary Care Nurse Care Team Related Persons Name: KORI WATTERS Address: home [address] [place] [id number] Name: COREY OLSEN Address: [place] [address]
--- OUTSIDE RECORDS SUMMARY | 2023-05-15 11:04 | XMS_ITS | Continuity of Care Document ---
Author Organization [facility] Adult Address [address] [place] [address]- Care Team Providers Care Joinery Setter Out Name Role Phone Luis ASHLEY, Shelly Villareal Primary Care Physician Encounter [facility] Date(s): 11/22/22 - 12/22/22 [facility] [address] [place] [address]- Allergies, Adverse Reactions, Alerts Substance Reaction Severity [...] pneumococcal 23-valent vaccine 01/18/11 Given 1Result Comment: [id number] 2[facility] Note[facility] 3[facility] 4Result Comment: [10/25/2014] HIGH DOSE 5[facility] 6Admin Note: Declined 7Admin Note: [facility] 8Result Comment: [facility] [id number] 9[facility] Note[facility] 10Admin Note: Had hx of Shingles 11Admin Note: [facility] high dose Medications amLODIPine 10 mg oral tablet 1 tablet, By Mouth, Daily, # 90 tablet, 1 Refills, Maintenance, 10/01/22 19:12:00 EDT, [facility] STORE 66223, 151.6, cm, 08/19/22 14:18:00 EDT, Height Start Date: 10/01/22 Status: Ordered clopidogrel 75 mg oral tablet 1, tablet, By Mouth, Daily, # 90 tablet, Refills 3, Maintenance, 01/01/22 10:26:00 EST, Route to Pharmacy Electronically, [facility] STORE 26852, 151.6, cm, 10/15/21 10:07:00 EDT, Height Start [...] capsule, 0 Refills, Maintenance, 05/26/20 9:11:00 EDT, [facility]/pharmacy #[id number], Partial fill upon patient request if the prescription is for a schedule II opioid drug., 151.6, cm, 05/26/20 8:48:00 EDT, Height Start Date: 05/26/20 Status: Ordered famotidine 20 mg oral tablet 1, tablet, By Mouth, Daily, # 90 tablet, Refills 0, Maintenance, 10/01/22 19:12:00 EDT, Route to [facility] Electron[facility], [facility], 151.6, cm, 08/19/22 14:18:00 EDT, Height Start Date: 10/01/22 Status: Ordered Freestyle Francheska Monitor See Instructions, [...] 3 Refills, Maintenance, 06/16/22 11:19:00 EDT, Solution, [facility]/pharmacy #[id number], Levemir flex pen; 100 units/ml; Dispense 4 boxes, 151.6, cm, 02/19/22 14:08:00 EST, Height Start Date: 06/16/22 Stop Date: 06/11/23 Status: Ordered levothyroxine 0.137 mg oral tablet 1 tablet, By Mouth, Daily, # 90 tablet, 0 Refills, Maintenance, 10/01/22 19:11:00 EDT, [facility], 151.6, cm, 08/19/22 14:18:00 EDT, Height Start Date: 10/01/22 Status: Ordered NovoLOG FlexPen 100 units/mL injectable solution See Instructions, INJECT SUBCUTANEOUSLY ONCE DAILY PER SLIDING SCALE, MAX OF 24 UNITS DAILY, # 15 Unknown, 1 Refills, Maintenance, 11/22/22 15:26:00 EDT, [facility], 151.6, cm, 08/19/22 14:18:00EDT, Height Start Date: [...] Weight Start Date: 07/09/19 Status: Ordered Pen [place], 31 G x 5 mm BD Ultra Fine III See Instructions, # 100 each, Refills 5, Tot. Refills 5, Maintenance, Use as daily with insulin Dx:Type 2 DM, E11.9, 10/26/21 4:43:00 EDT, Compound, 151.6, cm, 10/15/21 10:07:00 EDT, Height Start Date: 10/26/21 Stop Date: 04/24/22 Status: Ordered Potassium Chloride (Mmy-Vqdn-Imy 10) 10 mEq oral tablet, extended release 2 tablet, By Mouth, Daily, # 180 tablet, 3 Refills, Maintenance, 09/01/22 16:51:00 EDT, [facility], 151.6, cm, 08/19/22 14:18:00 EDT, Height Start Date: 09/01/22 Status: Ordered pravastatin 40 mg oral tablet 1 tablet, By Mouth, Daily, # 90 tablet, 1 Refills, Maintenance, 11/20/22 10:45:00 EDT, [facility], 151.6, cm, 08/19/22 14:18:00 EDT, Height Start [...] Personnel Name: Luis ASHLEY, Shelly Villareal Position: [facility] PCO Associate Professional Member Role: PCP Address: Address: [address] [facility] [address] [place] [address]- Name: Janina Coy RN Position: S RN Member Role: Primary Care Nurse Care Team Related Persons Name: KORI WATTERS Address: home [address] [place] [address] Name: COREY OLSEN Address: [place] [address]
--- OUTSIDE RECORDS SUMMARY | 2023-05-15 11:04 | XMS_ITS | Continuity of Care Document ---
Author Organization [facility] Address [address] [place] [address]- Care Team Providers Care Blooming Mill Supervisor Name Role Phone Luis ASHLEY, Shelly Villareal Primary Care Physician [facility] Date[facility]): 02/11/23 - 03/13/23 [facility] [address] [place] [address]- Allergies, Adverse Reactions, Alerts Substance Reaction Severity [...] pneumococcal 23-valent vaccine 01/18/11 Given 1Result Comment: [id number] 2[facility] 4Result Comment: [10/25/2014] HIGH DOSE 5Admin Note: [facility] 6Admin Note: Declined 7Admin Note: [facility] 8Result Comment: [facility] [id number] 9Admin Note: [facility] 10Admin Note: Had hx of Shingles 11Admin Note: [facility] Medications amLODIPine 10 mg oral tablet 1 tablet, By Mouth, Daily, # 90 tablet, 1 Refills, Maintenance, 10/01/22 19:12:00 EDT, [facility], 151.6, cm, 08/19/22 14:18:00 EDT, Height Start Date: 10/01/22 Status: Ordered BD UF MINI PEN NEEDLE [id number] BD UF MINI PEN NEEDLE [id number], See Instructions, # 90 Unknown, 6 Refills, Maintenance, USE DAILY WITH INSULIN, 12/31/22 10:17:00 EST, 151.6, cm, 08/19/22 14:18:00 EDT, Height Start Date: 12/31/22 Status: Ordered clopidogrel 75 mg oral tablet 1, tablet, By Mouth, Daily, # 90 tablet, Refills 3, Maintenance, 01/03/23 14:14:00 EST, Route to [facility] Electronically, [facility], 151.6, cm, 08/19/22 14:18:00 EDT, Height Start [...] capsule, 0 Refills, Maintenance, 05/26/20 9:11:00 EDT, [facility]/pharmacy #[id number], Partial fill upon patient request if the prescription is for a schedule II opioid drug., 151.6, cm, 05/26/20 8:48:00 EDT, Height Start Date: 05/26/20 Status: Ordered famotidine 20 mg oral tablet 1, tablet, By Mouth, Daily, # 90 tablet, Refills 1, Maintenance, 12/29/22 20:19:00 EST, Route to Pharmacy Electronically, [facility] STORE 49354, 151.6, cm, 08/19/22 14:18:00 EDT, Height Start [...] 11 Refills, Maintenance, 02/01/23 15:49:00 EST, Solution, [facility]/pharmacy #[id number], Partial fill upon patient request if the prescription is for a schedule II opioid drug., 151.6, cm, 08/19/22 1... Start Date: 02/01/23 Stop Date: 01/27/24 Status: Ordered Levemir 100 units/mL subcutaneous solution = 65 units, Subcutaneous Injection, Daily at bedtime, # 4 kit, 3 Refills, Maintenance, 06/16/22 11:19:00 EDT, Solution, [facility]/pharmacy #[id number], Levemir flex pen; 100 units/ml; Dispense 4 boxes, 151.6, cm, 02/19/22 14:08:00 EST, Height Start Date: 06/16/22 Stop Date: 06/11/23 Status: Ordered levothyroxine 0.137 mg oral tablet 1 tablet, By Mouth, Daily, # 90 tablet, 0 Refills, Maintenance, 01/20/23 9:01:00 EST, [facility], 151.6, cm, 08/19/22 14:18:00 EDT, Height Start Date: 01/20/23 Status: Ordered NovoLOG FlexPen 100 units/mL injectable solution See Instructions, INJECT SUBCUTANEOUSLY ONCE DAILY PER SLIDING SCALE, MAX OF 24 UNITS DAILY, # 15 Unknown, 1 Refills, Maintenance, 11/22/22 15:26:00 EDT, [facility], 151.6, cm, 08/19/22 14:18:00EDT, Height Start Date: [...] Weight Start Date: 07/09/19 Status: Ordered Pen [place], 31 G x 5 mm BD Ultra Fine III See Instructions, # 100 each, Refills 5, Tot. Refills 5, Maintenance, Use as daily with insulin Dx:Type 2 DM, E11.9, 10/26/21 4:43:00 EDT, Compound, 151.6, cm, 10/15/21 10:07:00 EDT, Height Start Date: 10/26/21 Stop Date: 04/24/22 Status: Ordered Potassium Chloride (Owu-Dozr-Xng 10) 10 mEq oral tablet, extended release 2 tablet, By Mouth, Daily, # 180 tablet, 3 Refills, Maintenance, 09/01/22 16:51:00 EDT, [facility], 151.6, cm, 08/19/22 14:18:00 EDT, Height Start Date: 09/01/22 Status: Ordered pravastatin 40 mg oral tablet 1 tablet, By Mouth, Daily, # 90 tablet, 1 Refills, Maintenance, 11/20/22 10:45:00 EDT, [facility], 151.6, cm, 08/19/22 14:18:00 EDT, Height Start [...] Associate Professional Member Role: PCP Address: Address: [address] [place] [address] [address] [place] [address]- Name: Janina Coy RN Position: [facility] RN Member Role: Primary Care Nurse Care Team Related Persons Name: KORI WATTERS Address: home [address] [place] [address] Name: COREY OLSEN Address: [place] [address]
--- OUTSIDE RECORDS SUMMARY | 2023-05-15 11:04 | XMS_ITS | Continuity of Care Document ---
Author Organization [facility] Address [address] [place] [address]- Care Team Providers Care Pest Control Technician Name Role Phone Luis ASHLEY, Shelly Villareal Primary Care Physician [facility]): 08/23/22 - 09/22/22 [facility] [address] [place] [address]- Allergies, Adverse Reactions, Alerts Substance Reaction Severity [...] pneumococcal 23-valent vaccine 01/18/11 Given 1Result Comment: [id number] 2Admin Note: [facility] 3[facility] 4Result Comment: [10/25/2014] HIGH DOSE 5Admin Note[facility] 6Admin Note: Declined 7Admin Note: [facility] 8Result Comment: [facility] [id number] 9Admin Note: [facility] 10Admin Note: Had hx of Shingles 11Admin Note: [facility] Medications amLODIPine 10 mg oral tablet 1 tablet, By Mouth, Daily, # 90 tablet, 1 Refills, Maintenance, 04/07/22 4:59:00 EST, [facility] STORE 76085, 151.6, cm, 02/19/22 14:08:00 EST, Height Start Date: 04/07/22 Status: Ordered clopidogrel 75 mg oral tablet 1, tablet, By Mouth, Daily, # 90 tablet, Refills 3, Maintenance, 01/01/22 10:26:00 EST, Route to Pharmacy Electronically, [facility], 151.6, cm, 10/15/21 10:07:00 EDT, Height Start [...] capsule, 0 Refills, Maintenance, 05/26/20 9:11:00 EDT, [facility]/pharmacy #[id number], Partial fill upon patient request if the prescription is for a schedule II opioid drug., 151.6, cm, 05/26/20 8:48:00 EDT, Height Start Date: 05/26/20 Status: Ordered famotidine 20 mg oral tablet 1, tablet, By Mouth, Daily, # 90 tablet, Refills 0, Maintenance, 07/04/22 21:42:00 EDT, Route to Pharmacy Electronically, [facility], 151.6, cm, 02/19/22 14:08:00 EST, Height Start [...] 3 Refills, Maintenance, 06/16/22 11:19:00 EDT, Solution, [facility]/pharmacy #[id number], Levemir flex pen; 100 units/ml; Dispense 4 boxes, 151.6, cm, 02/19/22 14:08:00 EST, Height Start Date: 06/16/22 Stop Date: 06/11/23 Status: Ordered levothyroxine 0.137 mg oral tablet 1 tablet, By Mouth, Daily, # 90 tablet, 0 Refills, Maintenance, 08/01/22 20:29:00 EDT, [facility], 151.6, cm, 02/19/22 14:08:00 EST, Height Start Date: 08/01/22 Status: Ordered NovoLOG FlexPen 100 units/mL injectable solution See Instructions, INJECT SUBCUTANEOUSLY ONCE DAILY PER SLIDING SCALE, MAX OF 24 UNITS DAILY, # 15 Unknown, 1 Refills, [facility], 151.6, cm, 05/26/20 8:48:00 EDT, Height Start [...] Weight Start Date: 07/09/19 Status: Ordered Pen [place], 31 G x 5 mm BD Ultra Fine III See Instructions, # 100 each, Refills 5, Tot. Refills 5, Maintenance, Use as daily with insulin Dx:Type 2 DM, E11.9, 10/26/21 4:43:00 EDT, Compound, 151.6, cm, 10/15/21 10:07:00 EDT, Height Start Date: 10/26/21 Stop Date: 04/24/22 Status: Ordered Potassium Chloride (Uix-Oxur-Uyw 10) 10 mEq oral tablet, extended release 2 tablet, By Mouth, Daily, # 180 tablet, 3 Refills, Maintenance, 09/01/22 16:51:00 EDT, [facility], 151.6, cm, 08/19/22 14:18:00 EDT, Height Start Date: 09/01/22 Status: Ordered pravastatin 40 mg oral tablet 1 tablet, By Mouth, Daily, # 90 tablet, 1 Refills, Maintenance, 05/23/22 9:17:00 EDT, [facility], 151.6, cm, 02/19/22 14:08:00 EST, Height Start [...] Personnel Name: Luis ASHLEY, Shelly Villareal Position: [facility] PCO Associate Professional Member Role: PCP Address: Address: [address] [place] [address] [address] [place] [address]- Name: Janina Coy RN Position: [facility] RN Member Role: Primary Care Nurse Care Team Related Persons Name: KORI WATTERS Address: home [address] [place] [address] Name: COREY OLSEN Address: [place] [address]
--- OUTSIDE RECORDS SUMMARY | 2023-05-15 11:04 | XMS_ITS | Continuity of Care Document ---
Author Organization [facility] Address [address] [place] [address]- Care Team Providers Care Drafter Castings Name Role Phone Luis ASHLEY, Shelly Villareal Primary Care Physician [facility]): 12/30/22 - 01/29/23 [facility] [address] [place] [address]- Allergies, Adverse Reactions, Alerts Substance Reaction Severity [...] pneumococcal 23-valent vaccine 01/18/11 Given 1Result Comment: [id number] 2Admin Note: [facility] 3[facility] 4Result Comment: [10/25/2014] HIGH DOSE 5Admin Note[facility] 6Admin Note: Declined 7Admin Note: [facility] 8Result Comment: [facility] [id number] 9Admin Note: [facility] 10Admin Note: Had hx of Shingles 11Admin Note: [facility] Medications amLODIPine 10 mg oral tablet 1 tablet, By Mouth, Daily, # 90 tablet, 1 Refills, Maintenance, 10/01/22 19:12:00 EDT, [facility], 151.6, cm, 08/19/22 14:18:00 EDT, Height Start Date: 10/01/22 Status: Ordered BD UF MINI PEN NEEDLE [id number] BD UF MINI PEN NEEDLE [id number], See Instructions, # 90 Unknown, 6 Refills, Maintenance, USE DAILY WITH INSULIN, 12/31/22 10:17:00 EST, 151.6, cm, 08/19/22 14:18:00 EDT, Height Start Date: 12/31/22 Status: Ordered clopidogrel 75 mg oral tablet 1, tablet, By Mouth, Daily, # 90 tablet, Refills 3, Maintenance, 01/03/23 14:14:00 EST, Route to Pharmacy Electronically, [facility], 151.6, cm, 08/19/22 14:18:00 EDT, Height Start [...] 05/26/20 9:11:00 EDT, [facility]/pharmacy #[id number], Partial fill upon patient request if the prescription is for a schedule II opioid drug., 151.6, cm, 05/26/20 8:48:00 EDT, Height Start Date: 05/26/20 Status: Ordered famotidine 20 mg oral tablet 1, tablet, By Mouth, Daily, # 90 tablet, Refills 1, Maintenance, 12/29/22 20:19:00 EST, Route to Pharmacy Electronically, [facility] STORE 48627, 151.6, cm, 08/19/22 14:18:00 EDT, Height Start [...] 3 Refills, Maintenance, 06/16/22 11:19:00 EDT, Solution, [facility]/pharmacy #[id number], Levemir flex pen; 100 units/ml; Dispense 4 boxes, 151.6, cm, 02/19/22 14:08:00 EST, Height Start Date: 06/16/22 Stop Date: 06/11/23 Status: Ordered levothyroxine 0.137 mg oral tablet 1 tablet, By Mouth, Daily, # 90 tablet, 0 Refills, Maintenance, 01/20/23 9:01:00 EST, [facility], 151.6, cm, 08/19/22 14:18:00 EDT, Height Start Date: 01/20/23 Status: Ordered NovoLOG FlexPen 100 units/mL injectable solution See Instructions, INJECT SUBCUTANEOUSLY ONCE DAILY PER SLIDING SCALE, MAX OF 24 UNITS DAILY, # 15 Unknown, 1 Refills, Maintenance, 11/22/22 15:26:00 EDT, [facility], 151.6, cm, 08/19/22 14:18:00EDT, Height Start Date: [...] Weight Start Date: 07/09/19 Status: Ordered Pen [place], 31 G x 5 mm BD Ultra Fine III See Instructions, # 100 each, Refills 5, Tot. Refills 5, Maintenance, Use as daily with insulin Dx:Type 2 DM, E11.9, 10/26/21 4:43:00 EDT, Compound, 151.6, cm, 10/15/21 10:07:00 EDT, Height Start Date: 10/26/21 Stop Date: 04/24/22 Status: Ordered Potassium Chloride (Vjo-Gxuc-Djx 10) 10 mEq oral tablet, extended release 2 tablet, By Mouth, Daily, # 180 tablet, 3 Refills, Maintenance, 09/01/22 16:51:00 EDT, [facility], 151.6, cm, 08/19/22 14:18:00 EDT, Height Start Date: 09/01/22 Status: Ordered pravastatin 40 mg oral tablet 1 tablet, By Mouth, Daily, # 90 tablet, 1 Refills, Maintenance, 11/20/22 10:45:00 EDT, [facility], 151.6, cm, 08/19/22 14:18:00 EDT, Height Start [...] Team Personnel Name: Shelly Smith NP Position: [facility] PCO Associate Professional Member Role: PCP Address: Address: [address]rd [place] [address]- Name: Janina Coy RN Position: [facility] RN Member Role: Primary Care Nurse Care Team Related Persons Name: KORI WATTERS Address: home [address] [place] [id number] Name: RAÚL, COREY Address: home [place] [address]
--- OUTSIDE RECORDS SUMMARY | 2023-05-15 11:05 | XMS_ITS | Continuity of Care Document ---
Author Organization [facility] Address [address] [place] [address]- Care Team Providers Care Motor Bike Mechanic Name Role Phone Luis ASHLYE, Shelly Villareal Primary Care Physician [facility]): 08/[facility]/22 - 09/04/22 [facility] [address] [place], [place] [address] Allergies, Adverse Reactions, Alerts Substance Reaction Severity [...] pneumococcal 23-valent vaccine 01/18/11 Given 1Result Comment: [id number] 2Admin Note: [facility] 3[facility] 4Result Comment: [10/25/2014] HIGH DOSE 5Admin Note: [facility] 6Admin Note: Declined 7Admin Note: [facility] 8Result Comment: [facility] [id number] 9Admin Note: [facility] 10Admin Note: Had hx of Shingles 11Admin Note: [facility] Medications amLODIPine 10 mg oral tablet 1 tablet, By Mouth, Daily, # 90 tablet, 1 Refills, Maintenance, 04/07/22 4:59:00 EST, [facility] STORE 21304, 151.6, cm, 02/19/22 14:08:00 EST, Height Start Date: 04/07/22 Status: Ordered clopidogrel 75 mg oral tablet 1, tablet, By Mouth, Daily, # 90 tablet, Refills 3, Maintenance, 01/01/22 10:26:00 EST, Route to Pharmacy Electronically, [facility] STORE 17696, 151.6, cm, 10/15/21 10:07:00 EDT, Height Start [...] capsule, 0 Refills, Maintenance, 05/26/20 9:11:00 EDT, [facility]/pharmacy #[id number], Partial fill upon patient request if the prescription is for a schedule II opioid drug., 151.6, cm, 05/26/20 8:48:00 EDT, Height Start Date: 05/26/20 Status: Ordered famotidine 20 mg oral tablet 1, tablet, By Mouth, Daily, # 90 tablet, Refills 0, Maintenance, 07/04/22 21:42:00 EDT, Route to [facility] Electronically, [facility], 151.6, cm, 02/19/22 14:08:00 EST, Height Start [...] 3 Refills, Maintenance, 06/16/22 11:19:00 EDT, Solution, [facility]/pharmacy #[id number], Levemir flex pen; 100 units/ml; Dispense 4 boxes, 151.6, cm, 02/19/22 14:08:00 EST, Height Start Date: 06/16/22 Stop Date: 06/11/23 Status: Ordered levothyroxine 0.137 mg oral tablet 1 tablet, By Mouth, Daily, # 90 tablet, 0 Refills, Maintenance, 08/01/22 20:29:00 EDT, [facility], 151.6, cm, 02/19/22 14:08:00 EST, Height Start Date: 08/01/22 Status: Ordered NovoLOG FlexPen 100 units/mL injectable solution See Instructions, INJECT SUBCUTANEOUSLY ONCE DAILY PER SLIDING SCALE, MAX OF 24 UNITS DAILY, # 15 Unknown, 1 Refills, [facility], 151.6, cm, 05/26/20 8:48:00 EDT, Height Start [...] Weight Start Date: 07/09/19 Status: Ordered Pen [place], 31 G x 5 mm BD Ultra Fine III See Instructions, # 100 each, Refills 5, Tot. Refills 5, Maintenance, Use as daily with insulin Dx:Type 2 DM, E11.9, 10/26/21 4:43:00 EDT, Compound, 151.6, cm, 10/15/21 10:07:00 EDT, Height Start Date: 10/26/21 Stop Date: 04/24/22 Status: Ordered Potassium Chloride (Rnb-Over-Wrf 10) 10 mEq oral tablet, extended release 2 tablet, By Mouth, Daily, # 180 tablet, 3 Refills, Maintenance, 09/01/22 16:51:00 EDT, [facility], 151.6, cm, 08/19/22 14:18:00 EDT, Height Start Date: 09/01/22 Status: Ordered pravastatin 40 mg oral tablet 1 tablet, By Mouth, Daily, # 90 tablet, 1 Refills, Maintenance, 05/23/22 9:17:00 EDT, [facility], 151.6, cm, 02/19/22 14:08:00 EST, Height Start [...] Personnel Name: Luis ASHLEY, Shelly Villareal Position: [facility] PCO Associate Professional Member Role: PCP Address: Address: [address] [place] [address] [address] [place] [address]- Name: Janina Coy RN Position: [facility] RN Member Role: Primary Care Nurse Care Team Related Persons Name: KORI WATTERS Address: home [address] [place] [address] Name: COREY OLSEN Address: [place] [address]
--- OUTSIDE RECORDS SUMMARY | 2023-05-15 11:05 | XMS_ITS | Continuity of Care Document ---
Author Organization [facility] Address [address] [place] [address]- Care Team Providers Care Tax Form Preparer Name Role Phone Luis ASHLEY, Shelly Villareal Primary Care Physician [facility]): 09/[facility]/22 - 10/01/22 [facility] [address] [place] [address]- Allergies, Adverse Reactions, Alerts Substance Reaction Severity [...] pneumococcal 23-valent vaccine 01/18/11 Given 1Result Comment: [id number] 2Admin Note: [facility] 3[facility] 4Result Comment: [10/25/2014] HIGH DOSE 5Admin Note: [facility] 6Admin Note: Declined 7Admin Note: [facility] 8Result Comment: [facility] [id number] 9Admin Note: [facility] 10Admin Note: Had hx of Shingles 11Admin Note: [facility] Medications amLODIPine 10 mg oral tablet 1 tablet, By Mouth, Daily, # 90 tablet, 1 Refills, Maintenance, 10/01/22 19:12:00 EDT, [facility] STORE 19109, 151.6, cm, 08/19/22 14:18:00 EDT, Height Start Date: 10/01/22 Status: Ordered clopidogrel 75 mg oral tablet 1, tablet, By Mouth, Daily, # 90 tablet, Refills 3, Maintenance, 01/01/22 10:26:00 EST, Route to [facility] Electronically, [facility], 151.6, cm, 10/15/21 10:07:00 EDT, Height Start [...] capsule, 0 Refills, Maintenance, 05/26/20 9:11:00 EDT, [facility]/pharmacy #[id number], Partial fill upon patient request if the prescription is for a schedule II opioid drug., 151.6, cm, 05/26/20 8:48:00 EDT, Height Start Date: 05/26/20 Status: Ordered famotidine 20 mg oral tablet 1, tablet, By Mouth, Daily, # 90 tablet, Refills 0, Maintenance, 10/01/22 19:12:00 EDT, Route to Pharm[facility] Electronically, [facility], 151.6, cm, 08/19/22 14:18:00 EDT, Height Start [...] 3 Refills, Maintenance, 06/16/22 11:19:00 EDT, Solution, [facility]/pharmacy #[id number], Levemir flex pen; 100 units/ml; Dispense 4 boxes, 151.6, cm, 02/19/22 14:08:00 EST, Height Start Date: 06/16/22 Stop Date: 06/11/23 Status: Ordered levothyroxine 0.137 mg oral tablet 1 tablet, By Mouth, Daily, # 90 tablet, 0 Refills, Maintenance, 10/01/22 19:11:00 EDT, [facility], 151.6, cm, 08/19/22 14:18:00 EDT, Height Start Date: 10/01/22 Status: Ordered NovoLOG FlexPen 100 units/mL injectable solution See Instructions, INJECT SUBCUTANEOUSLY ONCE DAILY PER SLIDING SCALE, MAX OF 24 UNITS DAILY, # 15 Unknown, 1 Refills, [facility], 151.6, cm, 05/26/20 8:48:00 EDT, Height Start [...] Weight Start Date: 07/09/19 Status: Ordered Pen [place], 31 G x 5 mm BD Ultra Fine III See Instructions, # 100 each, Refills 5, Tot. Refills 5, Maintenance, Use as daily with insulin Dx:Type 2 DM, E11.9, 10/26/21 4:43:00 EDT, Compound, 151.6, cm, 10/15/21 10:07:00 EDT, Height Start Date: 10/26/21 Stop Date: 04/24/22 Status: Ordered Potassium Chloride (Lqf-Nmhb-Dui 10) 10 mEq oral tablet, extended release 2 tablet, By Mouth, Daily, # 180 tablet, 3 Refills, Maintenance, 09/01/22 16:51:00 EDT, [facility], 151.6, cm, 08/19/22 14:18:00 EDT, Height Start Date: 09/01/22 Status: Ordered pravastatin 40 mg oral tablet 1 tablet, By Mouth, Daily, # 90 tablet, 1 Refills, Maintenance, 05/23/22 9:17:00 EDT, [facility], 151.6, cm, 02/19/22 14:08:00 EST, Height Start [...] team information Care Team Personnel Name: Luis ASLHEY, Shelly Villareal Position: [facility] PCO Associate Professional Member Role: PCP Address: Address: [address] [place] [address] [address]rd [place] [address]- Name: Janina Coy RN Position: [facility] RN Member Role: Primary Care Nurse Care Team Related Persons Name: KORI WATTERS Address: home [address] [place] [address] Name: COREY OLSEN Address: [place] [address]
--- OUTSIDE RECORDS SUMMARY | 2023-05-15 11:05 | XMS_ITS | Continuity of Care Document ---
Author Organization [facility] Address [address] [place] [address]- Care Team Providers Care News Department Intern Name Role Phone Not on Staff, PCP Primary Care Physician Unavail able [facility]): 03/25/23 - 04/24/23 [facility] [address] [place] [address]- Allergies, Adverse Reactions, Alerts Substance Reaction Severity [...] pneumococcal 23-valent vaccine 01/18/11 Given 1Result Comment: [id number] 2Admin Note: [facility] 3[facility] 4Result Comment: [10/25/2014] HIGH DOSE 5Admin Note: [facility] 6Admin Note: Declined 7Admin Note: [facility] 8Result Comment: [facility] [id number] 9Admin Note: [facility] 10Admin Note: Had hx of Shingles 11Admin Note: [facility] high dose Medications amLODIPine 10 mg oral tablet 1 tablet, By Mouth, Daily, # 90 tablet, 1 Refills, Maintenance, 10/01/22 19:12:00 EDT, [facility], 151.6, cm, 08/19/22 14:18:00 EDT, Height Start Date: 10/01/22 Status: Ordered BD UF MINI PEN NEEDLE [id number] BD UF MINI PEN NEEDLE [id number], See Instructions, # 90 Unknown, 6 Refills, Maintenance, USE DAILY WITH INSULIN, 12/31/22 10:17:00 EST, 151.6, cm, 08/19/22 14:18:00 EDT, Height Start Date: 12/31/22 Status: Ordered clopidogrel 75 mg oral tablet 1, tablet, By Mouth, Daily, # 90 tablet, Refills 3, Maintenance, 01/03/23 14:14:00 EST, Route to Pharmacy Electronically, [facility], 151.6, cm, 08/19/22 14:18:00 EDT, Height Start [...] capsule, 0 Refills, Maintenance, 05/26/20 9:11:00 EDT, [facility]/pharmacy #[id number], Partial fill upon patient request if the prescription is for a schedule II opioid drug., 151.6, cm, 05/26/20 8:48:00 EDT, Height Start Date: 05/26/20 Status: Ordered famotidine 20 mg oral tablet 1, tablet, By Mouth, Daily, # 90 tablet, Refills 1, Maintenance, 12/29/22 20:19:00 EST, Route to Pharmacy Electronically, [facility] STORE 00855, 151.6, cm, 08/19/22 14:18:00 EDT, Height Start [...] 11 Refills, Maintenance, 02/01/23 15:49:00 EST, Solution, [facility]/pharmacy #[id number], Partial fill upon patient request if the prescription is for a schedule II opioid drug., 151.6, cm, 08/19/22 1... Start Date: 02/01/23 Stop Date: 01/27/24 Status: Ordered Levemir 100 units/mL subcutaneous solution = 65 units, Subcutaneous Injection, Daily at bedtime, # 4 kit, 3 Refills, Maintenance, 06/16/22 11:19:00 EDT, Solution, [facility]/pharmacy #[id number], Levemir flex pen; 100 units/ml; Dispense 4 boxes, 151.6, cm, 02/19/22 14:08:00 EST, Height Start Date: 06/16/22 Stop Date: 06/11/23 Status: Ordered levothyroxine 0.137 mg oral tablet 1 tablet, By Mouth, Daily, # 90 tablet, 1 Refills, Maintenance, 04/20/23 7:00:00 EDT, [facility]/pharmacy #[id number], 151.6, cm, 08/19/22 14:18:00 EDT, Height Start Date: 04/20/23 Status: Ordered NovoLOG FlexPen 100 units/mL injectable solution See Instructions, INJECT SUBCUTANEOUSLY ONCE DAILY PER SLIDING SCALE, MAX OF 24 UNITS DAILY, # 15 Unknown, 1 Refills, Maintenance, 11/22/22 15:26:00 EDT, [facility] STORE 59637, 151.6, cm, 08/19/22 14:18:00EDT, Height Start Date: [...] Weight Start Date: 07/09/19 Status: Ordered Pen [place], 31 G x 5 mm BD Ultra Fine III See Instructions, # 100 each, Refills 5, Tot. Refills 5, Maintenance, Use as daily with insulin Dx:Type 2 DM, E11.9, 10/26/21 4:43:00 EDT, Compound, 151.6, cm, 10/15/21 10:07:00 EDT, Height Start Date: 10/26/21 Stop Date: 04/24/22 Status: Ordered Potassium Chloride (Iyu-Ugzg-Wzp 10) 10 mEq oral tablet, extended release 2 tablet, By Mouth, Daily, # 180 tablet, 3 Refills, Maintenance, 09/01/22 16:51:00 EDT, [facility], 151.6, cm, 08/19/22 14:18:00 EDT, Height Start Date: 09/01/22 Status: Ordered pravastatin 40 mg oral tablet 1 tablet, By Mouth, Daily, # 90 tablet, 1 Refills, Maintenance, 11/20/22 10:45:00 EDT, [facility], 151.6, cm, 08/19/22 14:18:00 EDT, Height Start [...] Care team information Care Team Personnel Name: Not on Staff, PCP Position: [facility] Physician (General Medicine) Member Role: PCP Name: Janina Coy RN Position: [facility] RN Member Role: Primary Care Nurse Care Team Related Persons Name: KORI WATTERS Address: home [address] [place] [id number] Name: COREY OLSEN Address: [place] [address]
--- OUTSIDE RECORDS SUMMARY | 2023-05-15 11:05 | XMS_ITS | Continuity of Care Document ---
Author Organization [facility] Adult Address [address] [place] [address]- Care Team Providers Care Cognos Developer Name Role Phone Luis ASHLEY, Shelly Villareal Primary Care Physician [facility] Date[facility]): 08/[facility]/22 - 09/05/22 [facility] [address] [place] [address]- Allergies, Adverse Reactions, Alerts Substance Reaction Severity [...] pneumococcal 23-valent vaccine 01/18/11 Given 1Result Comment: [id number] [facility] 4Result Comment: [10/25/2014] H[facility] DOSE 5Admin Note: [facility] 6Admin Note: Declined 7Admin Note: [facility] 8Result Comment: [facility] [id number] 9Admin Note[facility] 10Admin Note: Had hx of Shingles 11Admin Note: [facility] Medications amLODIPine 10 mg oral tablet 1 tablet, By Mouth, Daily, # 90 tablet, 1 Refills, Maintenance, 04/07/22 4:59:00 EST, [facility] STORE 02336, 151.6, cm, 02/19/22 14:08:00 EST, Height Start Date: 04/07/22 Status: Ordered clopidogrel 75 mg oral tablet 1, tablet, By Mouth, Daily, # 90 tablet, Refills 3, Maintenance, 01/01/22 10:26:00 EST, Route to [facility] Electronically, [facility], 151.6, cm, 10/15/21 10:07:00 EDT, Height Start [...] capsule, 0 Refills, Maintenance, 05/26/20 9:11:00 EDT, [facility]/pharmacy #[id number], Partial fill upon patient request if the prescription is for a schedule II opioid drug., 151.6, cm, 05/26/20 8:48:00 EDT, Height Start Date: 05/26/20 Status: Ordered famotidine 20 mg oral tablet 1, tablet, By Mouth, Daily, # 90 tablet, Refills 0, Maintenance, 07/04/22 21:42:00 EDT, Route to [facility]ically, [facility], 151.6, cm, 02/19/22 14:08:00 EST, Height Start [...] 3 Refills, Maintenance, 06/16/22 11:19:00 EDT, Solution, [facility]/pharmacy #[id number], Levemir flex pen; 100 units/ml; Dispense 4 boxes, 151.6, cm, 02/19/22 14:08:00 EST, Height Start Date: 06/16/22 Stop Date: 06/11/23 Status: Ordered levothyroxine 0.137 mg oral tablet 1 tablet, By Mouth, Daily, # 90 tablet, 0 Refills, Maintenance, 08/01/22 20:29:00 EDT, [facility], 151.6, cm, 02/19/22 14:08:00 EST, Height Start Date: 08/01/22 Status: Ordered NovoLOG FlexPen 100 units/mL injectable solution See Instructions, INJECT SUBCUTANEOUSLY ONCE DAILY PER SLIDING SCALE, MAX OF 24 UNITS DAILY, # 15 Unknown, 1 Refills, [facility], 151.6, cm, 05/26/20 8:48:00 EDT, Height Start [...] Weight Start Date: 07/09/19 Status: Ordered Pen [place], 31 G x 5 mm BD Ultra Fine III See Instructions, # 100 each, Refills 5, Tot. Refills 5, Maintenance, Use as daily with insulin Dx:Type 2 DM, E11.9, 10/26/21 4:43:00 EDT, Compound, 151.6, cm, 10/15/21 10:07:00 EDT, Height Start Date: 10/26/21 Stop Date: 04/24/22 Status: Ordered Potassium Chloride (Htl-Pbon-Wbo 10) 10 mEq oral tablet, extended release 2 tablet, By Mouth, Daily, # 180 tablet, 3 Refills, Maintenance, 09/01/22 16:51:00 EDT, [facility], 151.6, cm, 08/19/22 14:18:00 EDT, Height Start Date: 09/01/22 Status: Ordered pravastatin 40 mg oral tablet 1 tablet, By Mouth, Daily, # 90 tablet, 1 Refills, Maintenance, 05/23/22 9:17:00 EDT, [facility], 151.6, cm, 02/19/22 14:08:00 EST, Height Start [...] Personnel Name: Luis ASHLEY, Shelly Villareal Position: [facility] PCO Associate Professional Member Role: PCP Address: Address: [address] [place] [address] [address] [place] [address]- Name: Janina Coy RN Position: [facility] RN Member Role: Primary Care Nurse Care Team Related Persons Name: KORI WATTERS Address: home [address] [place] [address] Name: COREY OLSEN Address: [place] [address]
--- OUTSIDE RECORDS SUMMARY | 2023-05-15 11:05 | XMS_ITS | Continuity of Care Document ---
Author Organization [facility] Adult Address [address] [place] [address]- Care Team Providers Care Tack Picker Name Role Phone Luis ASHLEY, Shelly Villareal Primary Care Physician [facility] Date[facility]s): 12/29/22 - 01/28/23 [facility] Adult [address] [place] [address]- Allergies, Adverse Reactions, Alerts Substance Reaction Severity [...] pneumococcal 23-valent vaccine 01/18/11 Given 1Result Comment: [id number] 2Admin Note: [facility] 3[facility] 4Result Comment: [10/25/2014] HIGH DOSE 5Admin Note: [facility] 6Admin Note: Declined 7Admin Note: [facility] 8Result Comment: [facility] [id number] 9Admin Note: [facility] 10Admin Note: Had hx of Shingles 11Admin Note: [facility] Medications amLODIPine 10 mg oral tablet 1 tablet, By Mouth, Daily, # 90 tablet, 1 Refills, Maintenance, 10/01/22 19:12:00 EDT, [facility], 151.6, cm, 08/19/22 14:18:00 EDT, Height Start Date: 10/01/22 Status: Ordered BD UF MINI PEN NEEDLE [id number] BD UF MINI PEN NEEDLE [id number], See Instructions, # 90 Unknown, 6 Refills, Maintenance, USE DAILY WITH INSULIN, 12/31/22 10:17:00 EST, 151.6, cm, 08/19/22 14:18:00 EDT, Height Start Date: 12/31/22 Status: Ordered clopidogrel 75 mg oral tablet 1, tablet, By Mouth, Daily, # 90 tablet, Refills 3, Maintenance, 01/03/23 14:14:00 EST, Route to [facility] Electronically, [facility], 151.6, cm, 08/19/22 14:18:00 EDT, Height Start [...] 0 Refills, Maintenance, 05/26/20 9:11:00 EDT, [facility]/pharmacy #[id number], Partial fill upon patient request if the prescription is for a schedule II opioid drug., 151.6, cm, 05/26/20 8:48:00 EDT, Height Start Date: 05/26/20 Status: Ordered famotidine 20 mg oral tablet 1, tablet, By Mouth, Daily, # 90 tablet, Refills 1, Maintenance, 12/29/22 20:19:00 EST, Route to Pharmacy Electronically, [facility] STORE 87152, 151.6, cm, 08/19/22 14:18:00 EDT, Height Start [...] 3 Refills, Maintenance, 06/16/22 11:19:00 EDT, Solution, [facility]/pharmacy #[id number], Levemir flex pen; 100 units/ml; Dispense 4 boxes, 151.6, cm, 02/19/22 14:08:00 EST, Height Start Date: 06/16/22 Stop Date: 06/11/23 Status: Ordered levothyroxine 0.137 mg oral tablet 1 tablet, By Mouth, Daily, # 90 tablet, 0 Refills, Maintenance, 01/20/23 9:01:00 EST, [facility], 151.6, cm, 08/19/22 14:18:00 EDT, Height Start Date: 01/20/23 Status: Ordered NovoLOG FlexPen 100 units/mL injectable solution See Instructions, INJECT SUBCUTANEOUSLY ONCE DAILY PER SLIDING SCALE, MAX OF 24 UNITS DAILY, # 15 Unknown, 1 Refills, Maintenance, 11/22/22 15:26:00 EDT, [facility], 151.6, cm, 08/19/22 14:18:00EDT, Height Start Date: [...] Weight Start Date: 07/09/19 Status: Ordered Pen [place], 31 G x 5 mm BD Ultra Fine III See Instructions, # 100 each, Refills 5, Tot. Refills 5, Maintenance, Use as daily with insulin Dx:Type 2 DM, E11.9, 10/26/21 4:43:00 EDT, Compound, 151.6, cm, 10/15/21 10:07:00 EDT, Height Start Date: 10/26/21 Stop Date: 04/24/22 Status: Ordered Potassium Chloride (Jrx-Fnad-Yia 10) 10 mEq oral tablet, extended release 2 tablet, By Mouth, Daily, # 180 tablet, 3 Refills, Maintenance, 09/01/22 16:51:00 EDT, [facility], 151.6, cm, 08/19/22 14:18:00 EDT, Height Start Date: 09/01/22 Status: Ordered pravastatin 40 mg oral tablet 1 tablet, By Mouth, Daily, # 90 tablet, 1 Refills, Maintenance, 11/20/22 10:45:00 EDT, [facility], 151.6, cm, 08/19/22 14:18:00 EDT, Height Start [...] Team Personnel Name: Shelly Smith NP Position: [facility] PCO Associate Professional Member Role: PCP Address: Address: [address] [place] [address]- Name: Janina Coy RN Position: [facility] RN Member Role: Primary Care Nurse Care Team Related Persons Name: KORI WATTERS Address: home [address] [place] [id number] Name: RAÚL, COREY Address: home [place] [address]
--- OUTSIDE RECORDS SUMMARY | 2023-05-15 11:05 | XMS_ITS | Continuity of Care Document ---
Author Organization [facility] Adult Address [address] [place] [address]- Care Team Providers Care Fly Winder Name Role Phone Luis ASHLEY, Shelly Villareal Primary Care Physician [facility] Date[facility]): 08/12/22 - 09/11/22 [facility] Adult [address] [place] [address]- Allergies, Adverse Reactions, Alerts Substance Reaction Severity [...] pneumococcal 23-valent vaccine 01/18/11 Given 1Result Comment: [id number] 2Admin Note: [facility] 3[facility] 4Result Comment: [10/25/2014] HIGH DOSE 5Admin Note: [facility] 6Admin Note: Declined 7Admin Note: [facility] 8Result Comment: [facility] [id number] 9Admin Note: [facility] 10Admin Note: Had hx of Shingles 11Admin Note: [facility] Medications amLODIPine 10 mg oral tablet 1 tablet, By Mouth, Daily, # 90 tablet, 1 Refills, Maintenance, 04/07/22 4:59:00 EST, [facility] STORE 74828, 151.6, cm, 02/19/22 14:08:00 EST, Height Start Date: 04/07/22 Status: Ordered clopidogrel 75 mg oral tablet 1, tablet, By Mouth, Daily, # 90 tablet, Refills 3, Maintenance, 01/01/22 10:26:00 EST, Route to Pharmacy Electronically, [facility], 151.6, cm, 10/15/21 10:07:00 EDT, Height Start [...] capsule, 0 Refills, Maintenance, 05/26/20 9:11:00 EDT, [facility]/pharmacy #[id number], Partial fill upon patient request if the prescription is for a schedule II opioid drug., 151.6, cm, 05/26/20 8:48:00 EDT, Height Start Date: 05/26/20 Status: Ordered famotidine 20 mg oral tablet 1, tablet, By Mouth, Daily, # 90 tablet, Refills 0, Maintenance, 07/04/22 21:42:00 EDT, Route to [facility] Electron[facility], [facility], 151.6, cm, 02/19/22 14:08:00 EST, Height Start [...] 3 Refills, Maintenance, 06/16/22 11:19:00 EDT, Solution, [facility]/pharmacy #[id number], Levemir flex pen; 100 units/ml; Dispense 4 boxes, 151.6, cm, 02/19/22 14:08:00 EST, Height Start Date: 06/16/22 Stop Date: 06/11/23 Status: Ordered levothyroxine 0.137 mg oral tablet 1 tablet, By Mouth, Daily, # 90 tablet, 0 Refills, Maintenance, 08/01/22 20:29:00 EDT, [facility], 151.6, cm, 02/19/22 14:08:00 EST, Height Start Date: 08/01/22 Status: Ordered NovoLOG FlexPen 100 units/mL injectable solution See Instructions, INJECT SUBCUTANEOUSLY ONCE DAILY PER SLIDING SCALE, MAX OF 24 UNITS DAILY, # 15 Unknown, 1 Refills, [facility], 151.6, cm, 05/26/20 8:48:00 EDT, Height Start [...] Weight Start Date: 07/09/19 Status: Ordered Pen [place], 31 G x 5 mm BD Ultra Fine III See Instructions, # 100 each, Refills 5, Tot. Refills 5, Maintenance, Use as daily with insulin Dx:Type 2 DM, E11.9, 10/26/21 4:43:00 EDT, Compound, 151.6, cm, 10/15/21 10:07:00 EDT, Height Start Date: 10/26/21 Stop Date: 04/24/22 Status: Ordered Potassium Chloride (Eub-Jnop-Tij 10) 10 mEq oral tablet, extended release 2 tablet, By Mouth, Daily, # 180 tablet, 3 Refills, Maintenance, 09/01/22 16:51:00 EDT, [facility], 151.6, cm, 08/19/22 14:18:00 EDT, Height Start Date: 09/01/22 Status: Ordered pravastatin 40 mg oral tablet 1 tablet, By Mouth, Daily, # 90 tablet, 1 Refills, Maintenance, 05/23/22 9:17:00 EDT, [facility], 151.6, cm, 02/19/22 14:08:00 EST, Height Start [...] Associate Professional Member Role: PCP Address: Address: [address] [place] [address] [address] [place] [address]- Name: Janina Coy RN Position: [facility] RN Member Role: Primary Care Nurse Care Team Related Persons Name: KORI WATTERS Address: home [address] [place] [address] Name: COREY OLSEN Address: [place] [address]
--- OUTSIDE RECORDS SUMMARY | 2023-05-15 11:05 | XMS_ITS | Continuity of Care Document ---
Author Organization [facility] Adult Address [address] [place] [address]- Care Team Providers Care Leather Stretcher Name Role Phone Luis ASHLEY, Shelly Villareal Primary Care Physician Encounter [facility] Date(s): 08/19/22 - 08/26/22 [facility] [address] [place] [address]- Encounter Diagnosis Diabetes(Discharge Diagnosis) - 08/19/22 Chronic kidney disease(Discharge Diagnosis) - 08/19/22 Hyperlipidemia(Discharge Diagnosis) - 08/19/22 Hypertension(Discharge Diagnosis) - 08/19/22 Obesity(Discharge Diagnosis) - 08/19/22 Hypothyroid(Discharge Diagnosis) - 08/19/22 Attending Physician: Shelly Smith NP Allergies, Adverse [...] pneumococcal 23-valent vaccine 01/18/11 Given 1Result Comment: [id number] 2Admin Note[facility] 3[facility] 4Result Comment: [10/25/2014] HIGH DOSE 5Admin Note: [facility] 6Admin Note: Declined 7Admin Note: [facility] 8Result Comment: [facility] [id number] 9Admin Note: [facility] 10Admin Note: Had hx of Shingles 11Admin Note: [facility] Medications amLODIPine 10 mg oral tablet 1 tablet, By Mouth, Daily, # 90 tablet, 1 Refills, Maintenance, 04/07/22 4:59:00 EST, [facility], 151.6, cm, 02/19/22 14:08:00 EST, Height Start Date: 04/07/22 Status: Ordered clopidogrel 75 mg oral tablet 1, tablet, By Mouth, Daily, # 90 tablet, Refills 3, Maintenance, 01/01/22 10:26:00 EST, Route to Pharmacy Electronically, [facility], 151.6, cm, 10/15/21 10:07:00 EDT, Height Start [...] capsule, 0 Refills, Maintenance, 05/26/20 9:11:00 EDT, [facility]/pharmacy #[id number], Partial fill upon patient request if the prescription is for a schedule II opioid drug., 151.6, cm, 05/26/20 8:48:00 EDT, Height Start Date: 05/26/20 Status: Ordered famotidine 20 mg oral tablet 1, tablet, By Mouth, Daily, # 90 tablet, Refills 0, Maintenance, 07/04/22 21:42:00 EDT, Route to Pharmacy Electronically, [facility], 151.6, cm, 02/19/22 14:08:00 EST, Height Start [...] 3 Refills, Maintenance, 06/16/22 11:19:00 EDT, Solution, [facility]/pharmacy #[id number], Levemir flex pen; 100 units/ml; Dispense 4 boxes, 151.6, cm, 02/19/22 14:08:00 EST, Height Start Date: 06/16/22 Stop Date: 06/11/23 Status: Ordered levothyroxine 0.137 mg oral tablet 1 tablet, By Mouth, Daily, # 90 tablet, 0 Refills, Maintenance, 08/01/22 20:29:00 EDT, [facility], 151.6, cm, 02/19/22 14:08:00 EST, Height Start Date: 08/01/22 Status: Ordered NovoLOG FlexPen 100 units/mL injectable solution See Instructions, INJECT SUBCUTANEOUSLY ONCE DAILY PER SLIDING SCALE, MAX OF 24 UNITS DAILY, # 15 Unknown, 1 Refills, [facility], 151.6, cm, 05/26/20 8:48:00 EDT, Height Start [...] Weight Start Date: 07/09/19 Status: Ordered Pen [place], 31 G x 5 mm BD Ultra Fine III See Instructions, # 100 each, Refills 5, Tot. Refills 5, Maintenance, Use as daily with insulin Dx:Type 2 DM, E11.9, 10/26/21 4:43:00 EDT, Compound, 151.6, cm, 10/15/21 10:07:00 EDT, Height Start Date: 10/26/21 Stop Date: 04/24/22 Status: Ordered Potassium Chloride (Ykx-Zmsz-Lsq 10) 10 mEq oral tablet, extended release 2 tablet, By Mouth, Daily, # 180 tablet, 3 Refills, [facility], 151.6, cm, 05/25/21 8:30:00 EDT, Height Start Date: 09/14/21 Status: Ordered pravastatin 40 mg oral tablet 1 tablet, By Mouth, Daily, # 90 tablet, 1 Refills, Maintenance, 05/23/22 9:17:00 EDT, [facility], 151.6, cm, 02/19/22 14:08:00 EST, Height Start [...] Effective Dates Health Status Clinical Service Informant Diabetes Discharge Diagnosis 08/19/22 Chronic kidney disease Discharge Diagnosis 08/19/22 Hyperlipidemia Discharge Diagnosis 08/19/22 Hypertension Discharge Diagnosis 08/19/22 Obesity Discharge Diagnosis 08/19/22 Hypothyroid Discharge Diagnosis 08/19/22 Vital Signs Most recent to oldest [Reference Range]: 1 2 Height 151.6 cm (08/19/22 2:18 PM) 151.6 cm (08/19/22 1:46 PM) Weight 85.5 kg (08/19/22 1:46 PM) Oxygen Saturation [94-100 %] 94 % (08/19/22 1:46 PM) Pulse Rate [55-90 bpm] 70 bpm (08/19/22 1:46 PM) Body Mass Index [18.5-24.99 kg/m2] 37.2 kg/m2 *>HHI* (08/19/22 1:46 PM) Blood Pressure [90-138/55-84 mm Hg] 122/ 56mm Hg (08/19/22 2:18 PM) 130/71mm Hg (08/19/22 1:46 PM) Respiratory Rate [16-30 br/min] 18 br/mi n (08/19/22 1:46 PM) Temperature [96.8-100.4 DegF] 98.2 DegF (08/19/22 1:46 PM) Mode of Delivery (Oxygen) Room air (08/19/22 1:46 PM) Blood pressure sites Arm, left (08/19/22 2:18 PM) Arm, right (08/19/22 1:46 PM) Temperature Route Oral (08/19/22 1:46 PM) Weight Obtained Via Standing scale (08/19/22 1:46 PM) Social History Social History Type Response Smoking Status Never (less than 100 in lifetime) entered on: 11/23/19 Sex Note * Corey Green: PERFORM, SIGN, VERIFY Event Display: Patient Education/Instruction Authored Date: [id number] [facility] *[facility] [place] [facility] Clinical Summary Name CAITLYN ROSS Age 87 Years 1935 PCP Luis ASHLEY, Shelly Villareal PCP Visit Date 08/19/2022 13:35:00 Additional Instructions: Scheduled Appointments?? Future Appointments ?No Future Appointments Scheduled Follow-Up Instructions ?? Diagnosis Chronic kidney disease, unspecified; Hypothyroidism, unspecified; Essential (primary) hypertension;Type 2 diabetes mellitus without complications; Obesity, unspecified; Hyperlipidemia, unspecified Medications: Please continue your medications until treatment is completed or stopped by your provider. Discuss any questions related to medications with your provider. Medications to Continue with No Changes These medications were not printed or sent to your pharmacy Amlodipine (amLODIPine 10 mg oral tablet) 1 tab(s) Oral Daily. Refills: 1. Next Dose: Cholecalciferol (Vitamin D3 1000 intl [...] 11. Next Dose: Durable Medical Equipment (Pen [place], 31 G x 5 mm BD Ultra [...] 24 UNITS DAILY. Refills: 1. Next Dose: Insulin Detemir (Levemir 100 units/mL subcutaneous solution) 65 unit(s) Subcutaneous Injection Daily at Bedtime for 90 Days. Refills: 3. Next Dose: Levothyroxine (levothyroxine 0.137 mg oral tablet) 1 tab(s) Oral Daily. Refills: 0. Next Dose: Miscellaneous Rx (ONE TOUCH ULTRA BLUE TEST STRP) USE TO TEST BLOOD SUGAR 3 TIMES A DAY. Refills: 5. Next Dose: Potassium Chloride (Potassium Chloride (Lbe-Zxle-Zbo 10) 10 mEq oral tablet, extended release) 2 tab(s) Oral Daily. Refills: 3. Next Dose: Pravastatin (pravastatin 40 mg oral tablet) 1 tab(s) Oral Daily. Refills: 1. Next Dose: Allergy Info:?? Bactrim; sulfADIAZINE; ciprofloxacin Medications Given This Visit Future Orders ?No future orders Vital Signs Height 151.6 cm Weight 85.5 kg BMI 37.2 kg/m2 Blood Pressure 122 mm Hg/56 mm Hg Temperature 98.2 DegF Pulse Rate 70 bpm Respiratory Rate 18 br/min 02 Sat Mode of Delivery 94 %/Room air You can now view a summary of your hospital visit from the comfort of your home through a free online portal called [employer]. [employer] is a website that allows you to securely view your medical information including discharge summary, medications and follow-up visits. ??You can alsosend a secure electronic message to your doctor???s office to request appointments, renew medications or just ask a question. You can enroll at [email or web address] or register during your next office visit. [...] primary care provider, you may find a [facility] provider by calling [facility] at [phone]. For information about the plan of care [...] Personnel Name: Luis ASHLEY, Shelly Villareal Position: [facility] PCO Associate Professional Member Role: PCP Address: Address: [address] [place] [address]- Name: Janina Coy RN Position: S RN Member Role: Primary Care Nurse Care Team Related Persons Name: KORI WATTERS Address: home [address] [place] [address] Name: COREY OLSEN Address: [place] [address]
--- OUTSIDE RECORDS SUMMARY | 2023-05-15 11:05 | XMS_ITS | Continuity of Care Document ---
Author Organization [facility] Adult Address [address] [place] [address]- Care Team Providers Care Director Emergency Name Role Phone Luis BRAKE HOLDER, Shelly Villareal Primary Care Physician [facility] Date(s): 11/20/22 - 12/20/22 [facility] Adult [address] [place] [address]- Allergies, Adverse Reactions, Alerts Substance Reaction Severity [...] pneumococcal 23-valent vaccine 01/18/11 Given 1Result Comment: [id number] 2Admin Note[facility] 3[facility] 4Result Comment: [10/25/2014] HIGH DOSE 5Admin Note: [facility] 6Admin Note: Declined 7Admin Note: [facility] 8Result Comment: [facility] [id number] 9Admin Note[facility] 10Admin Note: Had hx of Shingles 11Admin Note: [facility] high dose Medications amLODIPine 10 mg oral tablet 1 tablet, By Mouth, Daily, # 90 tablet, 1 Refills, Maintenance, 10/01/22 19:12:00 EDT, [facility] STORE 23703, 151.6, cm, 08/19/22 14:18:00 EDT, Height Start Date: 10/01/22 Status: Ordered clopidogrel 75 mg oral tablet 1, tablet, By Mouth, Daily, # 90 tablet, Refills 3, Maintenance, 01/01/22 10:26:00 EST, Route to Pharmacy Electronically, [facility] STORE 95194, 151.6, cm, 10/15/21 10:07:00 EDT, Height Start [...] 0 Refills, Maintenance, 05/26/20 9:11:00 EDT, [facility]/pharmacy #[id number], Partial fill upon patient request if the prescription is for a schedule II opioid drug., 151.6, cm, 05/26/20 8:48:00 EDT, Height Start Date: 05/26/20 Status: Ordered famotidine 20 mg oral tablet 1, tablet, By Mouth, Daily, # 90 tablet, Refills 0, Maintenance, 10/01/22 19:12:00 EDT, [facility] to [facility], [facility], 151.6, cm, 08/19/22 14:18:00 EDT, Height Start [...] 3 Refills, Maintenance, 06/16/22 11:19:00 EDT, Solution, [facility]/pharmacy #[id number], Levemir flex pen; 100 units/ml; Dispense 4 boxes, 151.6, cm, 02/19/22 14:08:00 EST, Height Start Date: 06/16/22 Stop Date: 06/11/23 Status: Ordered levothyroxine 0.137 mg oral tablet 1 tablet, By Mouth, Daily, # 90 tablet, 0 Refills, Maintenance, 10/01/22 19:11:00 EDT, [facility], 151.6, cm, 08/19/22 14:18:00 EDT, Height Start Date: 10/01/22 Status: Ordered NovoLOG FlexPen 100 units/mL injectable solution See Instructions, INJECT SUBCUTANEOUSLY ONCE DAILY PER SLIDING SCALE, MAX OF 24 UNITS DAILY, # 15 Unknown, 1 Refills, Maintenance, 11/22/22 15:26:00 EDT, [facility], 151.6, cm, 08/19/22 14:18:00EDT, Height Start Date: [...] Weight Start Date: 07/09/19 Status: Ordered Pen [place], 31 G x 5 mm BD Ultra Fine III See Instructions, # 100 each, Refills 5, Tot. Refills 5, Maintenance, Use as daily with insulin Dx:Type 2 DM, E11.9, 10/26/21 4:43:00 EDT, Compound, 151.6, cm, 10/15/21 10:07:00 EDT, Height Start Date: 10/26/21 Stop Date: 04/24/22 Status: Ordered Potassium Chloride (Ggc-Fkwo-Nnp 10) 10 mEq oral tablet, extended release 2 tablet, By Mouth, Daily, # 180 tablet, 3 Refills, Maintenance, 09/01/22 16:51:00 EDT, [facility], 151.6, cm, 08/19/22 14:18:00 EDT, Height Start Date: 09/01/22 Status: Ordered pravastatin 40 mg oral tablet 1 tablet, By Mouth, Daily, # 90 tablet, 1 Refills, Maintenance, 11/20/22 10:45:00 EDT, [facility], 151.6, cm, 08/19/22 14:18:00 EDT, Height Start [...] Personnel Name: Luis ASHLEY, Shelly Villareal Position: [facility] PCO Associate Professional Member Role: PCP Address: Address: [address]rd [place] [address]- Name: Janina Coy RN Position: S RN Member Role: Primary Care Nurse Care Team Related Persons Name: KORI WATTERS Address: home [address] [place] [address] Name: COREY OLSEN Address: [place] [address]
--- NOTE | 2023-05-15 11:21 | ED_ITS ---
HPI - General Adult General Chief complaint: General Medical Stated complaint: LOW BS 53,151 S/P D10 Time Seen by Provider: 05/15/23 11:19 Source: patient Mode of arrival: ambulatory Limitations: no limitations History of Present Illness HPI narrative: 88-year-old female past history of diabetes diverticulitis hypertension hyperlipidemia coronary artery disease chronic constipation CHF hypothyroidism presents emergency department after getting insulin. Patient is not fed and then found to have a blood sugar of 50 after being found slumped over. Patient is awake and alert has been able to eat since then she denies any symptoms Related Data Home Medications ?Medication ?Instructions ?Recorded ?Confirmed amlodipine 10 mg tablet 10 mg PO DAILY 08/01/22 08/01/22 cholecalciferol (vitamin D3) 25 25 mcg PO DAILY 08/01/22 08/01/22 mcg (1,000 unit) capsule (Vitamin D3) clopidogrel 75 mg tablet 75 mg PO DAILY 08/01/22 08/01/22 cranberry concentrate-ascorbic 1 cap PO DAILY 08/01/22 08/01/22 acid 4,200 mg-20 mg capsule docusate sodium 100 mg capsule 100 mg PO MOWEFR@199908/01/22 08/01/22 (Stool Softener) famotidine 20 mg tablet 20 mg PO DAILY 08/01/22 08/01/22 furosemide 40 mg tablet 40 mg PO DAILY 08/01/22 08/01/22 insulin aspart U-100 100 unit/mL See Protocol subcut DAILY 08/01/22 08/01/22 (3 mL) subcutaneous pen (Novolog FlexPen U-100 Insulin aspart) insulin detemir U-100 100 unit/mL 65 unit subcut DAILY@59908/01/22 08/01/22 (3 mL) subcutaneous pen (Levemir FlexPen) levothyroxine 137 mcg tablet 137 mcg PO DAILY@59908/01/22 08/01/22 potassium chloride 10 mEq 20 meq PO DAILY 08/01/22 08/01/22 tablet,extended release pravastatin 40 mg tablet 40 mg PO DAILY@199908/01/22 08/01/22 Previous Rx's ?Medication ?Instructions ?Recorded cefuroxime axetil 250 mg tablet 250 mg PO BID #2 tabs 08/04/22 Allergies Allergy/AdvReac Type Severity Reaction Status Date / Time Sulfa (Sulfonamide Allergy Unknown NAUSEA & Verified 05/15/23 11:02 Antibiotics) VOMITING [SULFA (SULFONAMIDE ANTIBIOTICS)] Review of Systems Review of Systems: Review of systems: General: Patient denies any fever chills recent illness or falls Musculoskeletal: Denies back pain or body aches or other injuries HEENT: denies headache, runny nose, ear pain Respiratory: denies shortness of breath, cough Cardiovascular: no chest pain or palpitations : denies dysuria, frequency Abdomen: no nausea vomiting denies abdominal pain Extremities: no swelling, no pain Skin: no diaphoresis Yes all other systems are reviewed and are negative [facility] Past Medical History Medical History (Updated 05/15/23 @ 12:05 by Helio Garland DO) Diverticulosis Social History Social History Household Members: Other Housing: Assisted Living Facility Housing Other:: Lives at [facility] in [place] Do you presently have visiting nurse or other home services: No Comment: 1:1 sitter Patient Tobacco Use Status: Never used Tobacco Advance Directives: No Advance Directives Information Provided: No service: No Physical Exam ED Vital Signs: Vital Signs - 24 hr 05/15/23 11:00 Temperature 97.3 F Pulse Rate 81 Respiratory Rate 20 Blood Pressure 137/52 L Pulse Oximetry 97 Oxygen Delivery Method Room Air BMI result Body Mass Index 33.5 General: Well-appearing well-nourished in no signs of distress HEENT: Normocephalic atraumatic Neck: No signs of JVD, no masses no tenderness or lymphadenopathy Cardiovascular: Regular rate and rhythm Respiratory: Clear to auscultation bilaterally Abdomen: Soft nontender no masses Extremities: Normal pedal pulses no signs of edema Skin: Dry warm no rashes Back: No tenderness full ROM Course Course Course Narrative: Patient is a but he sent which blood sugars trending up 92 I do feel comfortable discharging the patient home. Medical Decision Making Medical Decision Making MDM Narrative: I will watch the patient will give patient something to eat and reassess Differential Diagnosis Differential Diagnoses: The differential diagnosis associated with the presentation includes Diabetic hypoglycemia Lab Data [facility] Lab Attestation statement: I reviewed the patient's lab results. Labs: Lab Results 05/15/23 05/15/23 Range/Units 11:27 11:57 POC Glucose 85 92 (60-115) mg/dL Independent Historian Clinical information obtained from an independent historian. History obtained from or confirmed by: EMS External Record Review External record reviewed: Inpatient record and Office record Chronic Conditions Patient?s care impacted by: Diabetes and Hypertension diabetes diverticulitis hypertension hyperlipidemia coronary artery disease chronic constipation CHF hypothyroidism Discharge Plan Discharge Clinical Impression: Diabetic hypoglycemia Patient Disposition: Home, Self-Care Instructions: What to Do if Your Blood Sugar is Low (ED) Additional Instructions: You were seen in the emergency department after having low blood sugar. You were given some food and her blood sugar did improve. You have any other concerns please do not hesitate to come back to the emergency department. Prescriptions: No Action furosemide 40 mg tablet 40 mg PO DAILY levothyroxine 137 mcg tablet 137 mcg PO DAILY@0600 pravastatin 40 mg tablet 40 mg PO DAILY@1999 potassium chloride 10 mEq tablet extended release 20 meq PO DAILY clopidogrel 75 mg tablet 75 mg PO DAILY famotidine 20 mg tablet 20 mg PO DAILY amlodipine 10 mg tablet 10 mg PO DAILY docusate sodium [Stool Softener] 100 mg Capsule 100 mg PO MOWEFR@1999 insulin aspart U-100 [Novolog FlexPen U-100 Insulin] 100 unit/mL (3 mL) insulin pen See Protocol subcut DAILY Protocol: Insulin Correction Scale Less than or equal to 110 ---- Give (units): 0 111 to 150 Give (units): 0 151 to 200 Give (units): 0 201 to 250 Give (units): 2 251 to 300 Give (units): 4 301 to 350 Give (units): 6 Greater than 350 Give (units): 8 Call MD if Blood Glucose > : 350 Levemir FlexPen 100 unit/mL (3 mL) insulin pen 65 unit subcut DAILY@0600 cranberry conc-ascorbic acid 4,200-20 mg Capsule 1 cap PO DAILY cholecalciferol (vitamin D3) [Vitamin D3] 25 mcg (1,000 unit) Capsule 25 mcg PO DAILY cefuroxime axetil 250 mg tablet 250 mg PO BID Qty: 2 0RF Print Language: Chinese
[2023-05-15 11:31] LABS: Glucose, Whole Blood 85 mg/dL (60-115)
[2023-05-15 12:00] LABS: Glucose, Whole Blood 92 mg/dL (60-115)
[2023-05-15 12:19] VITALS: BP 136/73; PULSE 78; RESP 18; TEMP 36.7; O2SAT 96
== END 2023-05-15 12:24 | disposition home or self-care (01) ==
PROVIDERS: Emergency Provider Student in an Organized Health Care Education/Training Program
DX: E11.65 Type 2 diabetes mellitus with hyperglycemia (principal); I25.10 Atherosclerotic heart disease of native coronary artery without angina pectoris; I10 Essential (primary) hypertension; Z79.4 Long term (current) use of insulin; Z79.899 Other long term (current) drug therapy
CPT/HCPCS: 82947; 99282

== ENCOUNTER 2023-05-20 09:52 | Emergency (ER) | payer MEDICARE, SELFPAY ==
[2023-05-20 09:54] VITALS: BP 119/41; PULSE 88; O2SAT 94
[2023-05-20 10:00] VITALS: BP 139/41; PULSE 86; RESP 18; TEMP 36.6; O2SAT 91; BMI 28.3
[2023-05-20 10:04] LABS: Glucose, Whole Blood 114 mg/dL (60-115)
--- NOTE | 2023-05-20 10:14 | PC.NURSE ---
PT GIVEN ICE CREAM, P BUTTER SANDWICH AND BANANA.
--- NOTE | 2023-05-20 10:35 | ED_ITS ---
HPI - General Adult General Chief complaint: General Medical Stated complaint: LOW BGL Time Seen by Provider: 05/20/23 10:35 Source: patient and EMS Mode of arrival: EMS History of Present Illness HPI narrative: 88-year-old female history of diabetes, diverticulitis, hypertension, hyperlipidemia, coronary artery disease, chronic custom patient, CHF, hypothyroidism presenting to the emergency department after being found to have a low blood sugar at shelter facility, she was given insulin and 06:00, and 830 she was found to be slumped over with a sugar of 48. Unclear what her sugar was prior to patient receiving insulin. Patient denies any complaints at this time and feels well she says. Denies CP, SOB, nausea, vomiting, abd pain, headache, vision changes, dizziness, weakness. Related Data Home Medications ?Medication ?Instructions ?Recorded ?Confirmed amlodipine 10 mg tablet 10 mg PO DAILY 08/01/22 08/01/22 cholecalciferol (vitamin D3) 25 25 mcg PO DAILY 08/01/22 08/01/22 mcg (1,000 unit) capsule (Vitamin D3) clopidogrel 75 mg tablet 75 mg PO DAILY 08/01/22 08/01/22 cranberry concentrate-ascorbic 1 cap PO DAILY 08/01/22 08/01/22 acid 4,200 mg-20 mg capsule docusate sodium 100 mg capsule 100 mg PO MOWEFR@199908/01/22 08/01/22 (Stool Softener) famotidine 20 mg tablet 20 mg PO DAILY 08/01/22 08/01/22 furosemide 40 mg tablet 40 mg PO DAILY 08/01/22 08/01/22 insulin aspart U-100 100 unit/mL See Protocol subcut DAILY 08/01/22 08/01/22 (3 mL) subcutaneous pen (Novolog FlexPen U-100 Insulin aspart) insulin detemir U-100 100 unit/mL 65 unit subcut DAILY@59908/01/22 08/01/22 (3 mL) subcutaneous pen (Levemir FlexPen) levothyroxine 137 mcg tablet 137 mcg PO DAILY@59908/01/22 08/01/22 potassium chloride 10 mEq 20 meq PO DAILY 08/01/22 08/01/22 tablet,extended release pravastatin 40 mg tablet 40 mg PO DAILY@199908/01/22 08/01/22 Previous Rx's ?Medication ?Instructions ?Recorded cefuroxime axetil 250 mg tablet 250 mg PO BID #2 tabs 08/04/22 cephalexin 500 mg tablet 500 mg PO Q6H 10 days #40 tabs 05/20/23 Allergies Allergy/AdvReac Type Severity Reaction Status Date / Time Sulfa (Sulfonamide Allergy Unknown NAUSEA & Verified 05/20/23 10:03 Antibiotics) VOMITING [SULFA (SULFONAMIDE ANTIBIOTICS)] Review of Systems 2 Review of Systems: Yes all other systems are reviewed and are negative [facility] Past Medical History Attestation statement: The following information was validated with the patient. Source: old records reviewed and nursing notes reviewed Medical History (Updated 05/20/23 @ 13:22 by SCOTT Melendez) Diverticulosis Social History Social History Household Members: Other Housing: Assisted Living Facility Housing Other:: Lives at [facility] Do you presently have visiting nurse or other home services: No Comment: 1:1 sitter Patient Tobacco Use Status: Never used Tobacco Smoked in Last 30 Days: No Use of substances other than those prescribed or required for medical reasons: No Advance Directives: Yes Advance Directives on File: Yes Advance Directives Date on File: 08/09/22 service: No Physical Exam ED Vital Signs: Vital Signs - 24 hr 05/20/23 10:00 05/20/23 12:10 Temperature 97.9 F 97.7 F Pulse Rate 86 73 Respiratory Rate 18 16 Blood Pressure 139/41 L 128/43 L Pulse Oximetry 91 L 96 Oxygen Delivery Method Room Air Room Air BMI result Body Mass Index 28.3 vss Appearance: Alert.? Oriented X3.? No acute distress.? Head: Normocephalic, atraumatic, no step-offs or deformities Eyes: Pupils equal, round and reactive to light.? ENT: Pharynx normal.??External ears normal, TMs normal bilaterally and EAC's normal. No pain with manipulation of external ears bilaterally. No mastoid tenderness. Neck: Normal inspection.? Neck supple.? CVS: Normal heart rate and rhythm.? Pulses normal.? Respiratory: No respiratory distress.? Breath sounds normal.? Abdomen: Soft and nontender.? Skin: Skin warm and dry.? Normal skin color.? Normal skin turgor.? + cellulitis to rue( image below) Extremities: No lower extremity edema.? No calf ttp. 5/5 strength to bilateral upper and lower extremities Back: No midline tenderness, no C-spine tenderness, full range of motion, no CVA tenderness bilaterally Neuro: Oriented X 3.? No motor deficit.? No sensory deficit. CN 2-12 intact Course Reevaluation(s) Reevaluation #1: Patient is supposed to get Lantus in the morning after sugars are checked. It was supposed to get NovoLog on a sliding scale. Only if sugar is greater than 200 patient's sugar this morning was not greater than 200 and patient is still got insulin. I suspect this is the reason why patient was hypoglycemic. Time: 10:50 Reevaluation #2: Medication error per [facility] nurse Felicia DAMON currently under investigation. [facility] web operations administrator will call me to speak to me about this case. With in the past weeek Novalog 3/4 empty - this doesent seem correct. Time: 10:56 Reevaluation #3: Spoke to Kim admin who states this will be reported to the state by them [employer] administered insulin . Patient a&o X4 --> patient to be dc back . Family ok with plan Time: 12:06 Additional Reevaluation(s): On discharge patient was noted to have cellulitis to the right upper extremity I did attach images to chart, this is there since her last visit. It is thought that this started after patient had taped to the affected are erythematous, warm with excoriations. I am concerned that this may be cellulitis. Keflex sent to the pharmacy. UA with trace bacteria this would also cover Consultations Consultation #1: Point of care 114. Labs pending. Urine pending. Time: 10:40 Medical Decision Making Medical Decision Making MDM Narrative: 88-year-old female presents with low blood sugars at shelter facility. Was given insulin at 06:00 and was found slumped in her chair at 08:30. [facility] in [facility] Physical exam benign Concerns that patient likely got overdose for insulin and her sugar dropped too much. Unlikely metabolic derangements, infection, intracranial hemorrhage, stroke, posterior stroke, dysrhythmia, ACS, PE or dissection. Patient well- appearing appears to be in no acute distress. Plan basic workup. Differential Diagnosis Differential Diagnoses: The differential diagnosis associated with the presentation includes Concerns that patient likely got overdose for insulin and her sugar dropped too much. Unlikely metabolic derangements, infection, intracranial hemorrhage, stroke, posterior stroke, dysrhythmia, ACS, PE or dissection. Patient well- appearing appears to be in no acute distress. Admission/Observation Consideration of admission/observation: Escalation of care including admission/observation considered Unlikely Lab Data MDM Lab Attestation statement: I reviewed the patient's lab results. 05/20/23 11:22 05/20/23 11:22 Labs: Lab Results 05/20/23 05/20/23 05/20/23 Range/Units 10:00 11:22 12:24 WBC 14.1 H (4.8-10.8) X10*3/uL RBC 3.88 L (4.20-5.50) X10*6/uL Hgb 10.7 L (12.0-16.0) g/dl Hct 33.9 L (37.0-47.0) % MCV 87.4 (80.0-98.0) fL MCH 27.6 (27.0-33.0) pg MCHC 31.6 (31.0-35.0) g/dl RDW 14.2 (11.0-16.0) % Plt Count 253 D (160-400) X10*3/uL MPV 12.0 (9.4-12.3) fL Immature Gran % (Auto) 0.5 H (0.0-0.4) % Neut % (Auto) 87.5 H (45-73) % Lymph % (Auto) 5.0 L (20-40) % [place] % (Auto) 6.4 (2-11) % Eos % (Auto) 0.3 (0-4) % Baso % (Auto) 0.3 (0-2) % Lymph # (Auto) 0.7 L (1.2-4.9) X10*3/uL [place] # (Auto) 0.9 (0.1-1.2) X10*3/uL Eos # (Auto) 0.0 (0.0-0.4) X10*3/uL Baso # (Auto) 0.0 (0.0-0.2) X10*3/uL Abs Immat Gran (auto) 0.07 H (0.00-0.03) X10*3/uL Absolute Neuts (auto) 12.4 H (2.0-8.3) x10*3/uL Absolute Nucleated RBC 0.000 (0.0-0.012) X10*3/uL Nucleated RBC % (auto) 0.0 (0.0-0.2) /100WBC Sodium 144 (135-145) mmol/L Potassium 3.8 (3.3-5.1) mmol/L Chloride 108 (96-108) mmol/L Carbon Dioxide 28 (22-29) mmol/L Anion Gap 12 (12-20) BUN 36 H (9-16) mg/dL Creatinine 1.23 (0.5-1.4) mg/dL Estim Creat Clear Calc 30.7 Estimated GFR 41 POC Glucose 114 (60-115) mg/dL Random Glucose 84 (60-115) mg/dL Calcium 9.0 (8.4-10.2) mg/dL Magnesium 1.9 (1.6-2.6) mg/dL Total Bilirubin 0.3 (0.0-1.0) mg/dL AST 10 (5-31) U/L ALT 7 (0-31) U/L Alkaline Phosphatase 96 (39-117) U/L Total Protein 6.2 L (6.5-8.0) g/dL Albumin 3.5 (3.5-5.0) g/dL TSH 0.70 (0.32-4.0) uIU/mL Urine Color Yellow Urine Appearance Clear Urine pH 5.5 (5.0-9.0) Ur Specific [place] 1.015 (1.005-1.025) Urine Protein Negative (Neg-Trace) mg/dL Urine Glucose (UA) Negative (Negative) mg/dL Urine Ketones Negative (Negative) mg/dL Urine Blood Negative (Negative) Urine Nitrite Negative (Negative) Ur Leukocyte Esterase Trace H (Negative) Urine RBC 0-2 (0-2) /HPF Urine WBC 0-5 (0-5) /HPF Ur Squamous Epith Cells 3-5 (0-2) /HPF Urine Bacteria Trace (None Seen) Hyaline Casts 3-5 (0-2) /LPF External Record Review External record reviewed: Inpatient record, Office record, Outpatient record, Prior outpatient labs, Prior outpatient radiology, Primary care record and Outside ED record Critical Care Time Critical Care Time Critical Care Time: Yes Total Critical Care Time: 35 Attestation: I attest to this time spent taking care of the patient, obtaining history, physical, reviewing labs, imaging, speaking to my attending Discharge Plan Discharge Clinical Impression: Hypoglycemia, Cellulitis Patient Disposition: Xfer Other Transfer Details: [facility] Additional Instructions: Take your medications as prescribed. If you were prescribed antibiotics today, it is important that you take your medication to their entirety, do not skip any doses, do not finish them early. Follow-up with your primary care provider this week. Return to the emergency department with new or worsening symptoms. Such as fevers, chills, chest pain, shortness of breath, nausea, vomiting, dizziness, headache, vision changes, lethargy In case of emergency call 911 Prescriptions: New cephalexin 500 mg tablet 500 mg PO Q6H 10 Days Qty: 40 0RF No Action furosemide 40 mg tablet 40 mg PO DAILY levothyroxine 137 mcg tablet 137 mcg PO DAILY@0600 pravastatin 40 mg tablet 40 mg PO DAILY@2000 potassium chloride 10 mEq tablet extended release 20 meq PO DAILY clopidogrel 75 mg tablet 75 mg PO DAILY famotidine 20 mg tablet 20 mg PO DAILY amlodipine 10 mg tablet 10 mg PO DAILY docusate sodium [Stool Softener] 100 mg Capsule 100 mg PO MOWEFR@2000 insulin aspart U-100 [Novolog FlexPen U-100 Insulin] 100 unit/mL (3 mL) insulin pen See Protocol subcut DAILY Protocol: Insulin Correction Scale Less than or equal to 110 ---- Give (units): 0 111 to 150 Give (units): 0 151 to 200 Give (units): 0 201 to 250 Give (units): 2 251 to 300 Give (units): 4 301 to 350 Give (units): 6 Greater than 350 Give (units): 8 Call MD if Blood Glucose > : 350 Levemir FlexPen 100 unit/mL (3 mL) insulin pen 65 unit subcut DAILY@0600 cranberry conc-ascorbic acid 4,200-20 mg Capsule 1 cap PO DAILY cholecalciferol (vitamin D3) [Vitamin D3] 25 mcg (1,000 unit) Capsule 25 mcg PO DAILY cefuroxime axetil 250 mg tablet 250 mg PO BID Qty: 2 0RF Referrals: Physician,Unknown J [Primary Care Provider] - 2 days Print Language: Occitan
[2023-05-20 11:26] LABS: MANUAL DIFF FLAG NO
[2023-05-20 11:29] LABS: Basophils Percent Auto 0.3 % (0-2); Eosinophils Percent Auto 0.3 % (0-4); Hematocrit 33.9 % (37.0-47.0); Hemoglobin 10.7 g/dl (12.0-16.0); Imm Gran Abs Auto 0.07 X10*3/uL (0.00-0.03); Imm Gran Pct Auto 0.5 % (0.0-0.4); Lymphocytes Absolute Auto 0.7 X10*3/uL (1.2-4.9); Mean Corpuscular HGB Conc 31.6 g/dl (31.0-35.0); Mean Corpuscular Hemoglobin 27.6 pg (27.0-33.0); Mean Corpuscular Volume 87.4 fL (80.0-98.0); Monocytes Absolute Auto 0.9 X10*3/uL (0.1-1.2); Monocytes Percent Auto 6.4 % (2-11); Neutrophils Absolute Auto 12.4 x10*3/uL (2.0-8.3); Neutrophils Percent Auto 87.5 % (45-73); Platelet Count 253 X10*3/uL (160-400); Red Blood Count 3.88 X10*6/uL (4.20-5.50); Red Cell Distribution Width 14.2 % (11.0-16.0); White Blood Count 14.1 X10*3/uL (4.8-10.8)
[2023-05-20 11:55] LABS: Alanine Aminotransferase 7 U/L (0-31); Albumin Level 3.5 g/dL (3.5-5.0); Alkaline Phosphatase 96 U/L (39-117); Anion Gap 12 (12-20); Aspartate Amino Transferase 10 U/L (5-31); Bilirubin Total 0.3 mg/dL (0.0-1.0); Blood Urea Nitrogen 36 mg/dL (9-16); Carbon Dioxide 28 mmol/L (22-29); Chloride 108 mmol/L (96-108); Creatinine Clr Calc Pharmacy 30.7; Estimated Glomerular Filt Rate 41; Glucose Random 84 mg/dL (60-115); Magnesium 1.9 mg/dL (1.6-2.6); Potassium 3.8 mmol/L (3.3-5.1); Sodium 144 mmol/L (135-145); Total Protein 6.2 g/dL (6.5-8.0)
[2023-05-20 12:10] VITALS: BP 128/43; PULSE 73; RESP 16; TEMP 36.5; O2SAT 96
[2023-05-20 12:33] LABS: Appearance Urine Clear; Color Urine Yellow; Glucose Urine UA Negative (Negative); Leukocyte Esterase Urine Trace (Negative); Nitrite Urine Negative (Negative); PH 5.5 (5.0-9.0); Specific Gravity - Urine 1.015 (1.005-1.025); UMIC TRIGGER UACC YES; Urine Blood Negative (Negative); Urine Ketones Negative (Negative); Urine Protein Negative (Neg-Trace)
[2023-05-20 12:41] LABS: Bacteria Urine Trace (None Seen); RBC Urine 0-2 /HPF (0-2); WBC Urine 0-5 /HPF (0-5)
[2023-05-20 13:24] VITALS: BP 00/00; PULSE 0; RESP 0; TEMP 36.6; O2SAT 0
== END 2023-05-20 13:25 | disposition other institution (70) ==
PROVIDERS: Physician Assistant; Emergency Provider Emergency Medicine Emergency Medical Services
DX: E11.649 Type 2 diabetes mellitus with hypoglycemia without coma (principal); L03.113 Cellulitis of right upper limb; I10 Essential (primary) hypertension; Z79.4 Long term (current) use of insulin
CPT/HCPCS: 36415; 80053; 81001; 82947; 83735; 84443; 85025; 99283; 99284

== ENCOUNTER 2024-07-18 06:36 | Emergency (ER) | payer MEDICARE, SELFPAY ==
[2024-07-18] VITALS (7 sets, daily range): BP systolic 145–152; BP diastolic 36–96; PULSE 65–70; RESP 14–18; TEMP 36.3–36.6; O2SAT 93–99
--- NOTE | 2024-07-18 | ECG_ITS ---
Test Reason : dizziness Blood Pressure : */* mmHG Vent. Rate : 68 BPM Atrial Rate : 68 BPM P-R Int : 208 ms QRS Dur : 80 ms QT Int : 402 ms P-R-T Axes : 36 -11 -14 degrees QTcB Int : 427 ms Normal sinus rhythm Minimal voltage criteria for LVH, may be normal variant ( R in aVL ) Anterior infarct , age undetermined Abnormal ECG When compared with ECG of 15-Jul-2018 12:00, Anterior infarct is now Present Nonspecific T wave abnormality no longer evident in Lateral leads Referred By: Generic ED Physician Electronically Signed By: GONZALO ZHANG MD
--- NOTE | ~2024-07-18 | CT_ITS ---
EXAMINATION: CT HEAD WITHOUT CONTRAST CLINICAL INFORMATION: Frequent falls, R/O fracture, bleed, stroke COMPARISON: None available. TECHNIQUE: Contiguous axial imaging was performed from the skull base to vertex without intravenous administration of contrast. This CT examination was performed using dose optimization techniques as appropriate, variously including the following: *Automated exposure control *Adjustment of mA and/or kV according to patient size (this includes techniques or standardized protocols for targeted exams where dose is matched to indication/reason for exam; i.e. extremities or head) *Use of iterative reconstruction technique DLP: 565 mGy-cm FINDINGS: The bony calvarium is intact. Skull base is intact. No acute intracranial hemorrhage, mass effect, midline shift, hydrocephalus or herniation. Puente-white matter differentiation is normal. There is a focal, large encephalomalacia involving the right Cuneus and to a lesser extent right lingual gyrus. Multifocal patchy and confluent deep periventricular white matter and deep white matter hypodensities involving centrum semiovale and bowman radiata both hemispheres. Multifocal old lacunar infarcts, basal ganglia and extracapsular and bowman radiata white matter. Old lacunar infarcts, both cerebral hemispheres. Prominence of the extra-axial CSF spaces cerebral sulci and ventricles likely central volume loss. Vascular calcification, intra-cranial and extracranial. Tympanic cavities and mastoid cells are aerated. Retention cysts versus polyp, left frontal sinus. No air-fluid levels in the paranasal sinuses. Craniocervical junction demonstrates normal position of the cerebellar tonsils. 13 mm peripheral calcified low density, pineal gland. CT/CT head/brain wo IV con IMPRESSION: No acute fracture, bony calvarium. No acute intracranial hemorrhage. 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 Atherosclerosis disease which could be related to diabetes, end-stage renal disease among other etiologies. Electronically signed by: Bhupendra Pittman MD 07/18/2024 09:23 AM EDT
--- NOTE | ~2024-07-18 | XR_ITS ---
EXAMINATION: XR HIP, LEFT CLINICAL INFORMATION: Fall, left hip/femur bruise R/O fracture COMPARISON: None available. TECHNIQUE: Two views of the left hip. AP view, pelvis. FINDINGS: Degenerative changes in the stents as well as and sacroiliac joints. Mild degenerative changes in the coxofemoral joints. No acute cortical disruption or gross malalignment in either hip. The bony pelvis is intact. Levoconvex curvature lower lumbar spine. Facet joint hypertrophy at L5-S1. Endplate sclerosis decreased intervertebral disc height at L4-5 and L5-S1 levels. Vascular calcifications. No lytic or blastic lesions. XR/XR hip LT w PEL1V IMPRESSION: No acute fracture or dislocation, left hip. Atherosclerosis disease, peripheral. Electronically signed by: Bhupendra Pittman MD 07/18/2024 09:24 AM EDT
--- OUTSIDE RECORDS SUMMARY | 2024-07-18 07:26 | XMS_ITS | Clinical Summary ---
Author Organization [facility], Address [address] [place] [address] [place] [address] Phone Care Team Providers Care Cat Hooker Name Role Phone Erika Powell MD Primary Care Provider [phone] Allergies Active Allergy Reactions Criticality Noted Date Comments Ciprofloxacin GI intolerance 06/15/2021 Sulfa Antibiotics Other (see comments) 03/02/19 20 Sulfamethoxazole-Trimethoprim GI intolerance Medications Zoster Vaccine Live (ZOSTAVAX) 92987 UNT/0.65ML reconstituted suspension Zostavax (PF) 19,400 unit/0.65 mL subcutaneous suspension Active raNITIdine (ZANTAC) 150 MG capsule Take 1 capsule by mouth 2 (two) times a day Active pravastatin (PRAVACHOL) 40 MG tablet Take 40 mg by mouth 1 (one) time each day 03/05/19 17 Active potassium chloride (KLOR-CON) 20 MEQ CR tablet Take 20 mEq by mouth 1 (one) time each day Active polyethylene glycol (GAVILYTE-G) 236 g solution GaviLyte-G 236 gram-22.74 gram-6.74 gram-5.86 gram oral solution Active lisinopril (PRINIVIL,ZESTRIL ) 40 MG tablet Take 40 mg by mouth 1 (one) time each day 03/05/19 17 Active levothyroxine (SYNTHROID, LEVOTHROID) 112 MCG tablet Take 112 mcg by mouth 1 (one) time each day Active insulin detemir (LEVEMIR FLEXTOUCH) 100 UNIT/ML injection Comments: Filled Date: Sep 30 2016 12:00AM Patient Notes: INJECT 35 UNITS DAILY Duration: 42 06/01/19 17 Active insulin aspart (NovoLOG FLEXPEN) 100 UNIT/ML injection Comments: Filled Date: Jul 17 2016 12:00AM Patient Notes: 5-15UNITS SUBCUTANEOUS INFUSION 3 TIMES A DAY PER SLIDING SCALE. BEFOR E MEAL Duration: 01/12/20 16 Active clopidogrel (PLAVIX) 75 MG tablet Take 1 tablet by mouth 1 (one) time each day Active amLODIPine (NORVASC) 5 MG tablet Take 10 mg by mouth 1 (one) time each day 03/05/19 17 Active Cholecalciferol (VITAMIN D3) 25 MCG (1000 UT) capsule Take 1 capsule by mouth 1 (one) time each day Active potassium chloride (MICRO-K) 10 MEQ CR capsule potassium chloride ER 10 mEq tablet,extended release Active POLYETHYLENE GLYCOL 3350 PO polyethylene glycol 3350 17 gram/dose oral powder Active Insulin Pen Needle (NOVOFINE) 30G X 8 MM misc Comments: Filled Date: Jun 22 2016 12:00AM Patient Notes: USE 3 TIMES A DAY DX E11.9 Duration: 08/06/19 16 Active OneTouch Ultra test strip USE TO TEST BLOOD SUGAR 3 TIMES A DAY 02/03/20 20 Active famotidine (PEPCID) 20 MG tablet famotidine 20 mg tablet TAKE 1 TABLET BY MOUTH EVERY DAY Active Insulin Pen Needle 31G X 5 MM misc BD Ultra-Fine Mini Pen Needle 31 gauge x 3/16 USE DAILY WITH INSULIN DX TYPE 2 DM, E11.9 Active glucose blood test strip OneTouch Ultra Blue Test Strip USE TO TEST BLOOD SUGAR 3 TIMES A DAY Active levothyroxine (SYNTHROID, LEVOTHROID) 137 MCG tablet levothyroxine 137 mcg tablet Active famotidine (PEPCID) 20 MG tablet Take 1 tablet by mouth 10/13/19 21 Active docusate sodium (COLACE) 50 MG capsule Take 50 mg by mouth 05/27/19 21 Active amLODIPine (NORVASC) 10 MG tablet Take 1 tablet by mouth 10/08/19 21 Active hydroCHLOROthiazi de 25 MG tablet Take 1 tablet by mouth 04/08/19 22 Active furosemide (LASIX) 40 MG tablet TAKE 1 TABLET BY MOUTH 1 TIME EACH DAY. 90 tablet 3 05/25/19 23 Active levothyroxine (SYNTHROID, LEVOTHROID) 137 MCG tablet Take 1 tablet by mouth 02/07/19 23 Active Insulin Glargine-yfgn 100 UNIT/ML solution pen-injector 05/26/19 23 Active furosemide (LASIX) 20 MG tablet Take 1 tablet (20 mg total) by mouth 1 (one) time each day 90 tablet 3 05/04/19 25 Active Active Problems Problem Noted Date Diagnosed Date Hypercholesterolemia 02/19/2022 Esophageal dysmotility 02/19/2022 Obese class II 02/19/2022 History of cerebrovascular accident 05/25/2021 Hypothyroidism 05/25/2021 Edema 05/25/2021 Disorder of kidney due to diabetes mellitus 11/07 Anemia in chronic kidney disease 03/02/2019 Stage 3b chronic kidney disease 03/02/2019 Essential hypertension 03/02/2019 Type 2 diabetes mellitus 02/19/2016 Resolved Problems Problem Noted Date Diagnosed Date Resolved Date Iron deficiency 03/02/2019 05/07/2020 Encounters Date Type Department Care Team Description 05/03/2024 11:00 AM EDT Office Visit [facility] [address] [place] [address] Edenilson Zarate MD Stage 3b chronic kidney disease (HCC) (Primary Dx) from Last 3 Months Immunizations Immunization Administration Dates Next Due Influenza TIV (IM) 10/03/2015 Influenza Whole 10/03/2015,11/12/2011 Influenza, Quadrivalent, With Preservative 11/09 Influenza, Recombinant, Quadrivalent, Pf 020 Influenza, Unspecified 12/03/2021,10/26/2009 Pfizer SARS-COV-2 12/17/2020,03/21/2020,02/28/19 21 Pneumococcal Conjugate 13-Valent 09/09/2014,080 04/2014 Pneumococcal Polysaccharide 01/18/2011, 1 Td 03/23/2010 Td, Unspecified 11/24/2020,03/23/2010 Zoster 10/27/2016,12/26/2009 Family History Medical History Relation Comments Coronary artery disease Mother Diabetes Mother type II Relation Status Comments Mother Social History Tobacco Use Types Packs/Day Years Used Date Smoking Tobacco: Never Smokeless Tobacco: Never Tobacco Cessation:Counseling Given: Not Answered Alcohol Use Standard Drinks/Week Comments No 0 (1 standard drink = 0.6 oz pur e alcohol) Comments Unknown Sex and Gender Information Value Date Recorded Sex Assigned at Not on file Legal Sex Female 4:36 PM EST Gender Identity Not on file Sexual Orientation Not on file Last Filed Vital Signs Vital Sign Reading Time Taken Comments Blood Pressure 126/74 09/07/2022 10:44 AM EDT Pulse - - Temperature - - Respiratory Rate - - Oxygen Saturation - - Inhaled Oxygen Concentration - - Weight 80.4 kg (177 lb 4 oz) 11/04/2017 12:01 PM EDT Height 156.2 cm (5' 1.5 ) 11/13/2018 12:00 PM ED T Body Mass Index 32.95 11/04/2017 12:01 PM EDT Plan of Treatment Upcoming Encounters Date Type Department Care Team (Late st Contact Info) Description 08/16/2024 11:20 AM EDT Office Visit [facility], [address] [phone] Edenilson Zarate MD [address] [place] [phone] Health Maintenance Due Date Last Done Comments Diabetes: Hemoglobin A1C 03/02/2019 02/09/2017 Diabetes: Ophthalmology Exam 03/02/2019 Diabetes: Pedal Pulse Checked 03/02/2019 Diabetes: Sensory Foot Exam 03/02/2019 Diabetes: Visual Foot Exam 03/02/2019 Influenza Vaccine (Season Ended) 2024 12/03/2021, 11/23/2019, 11/10/2015, Additional history exists Pneumococcal Vaccine: 50+ Years Completed 09/09/2014, 09/09/2014, 01/18/2011, Additional history exists Pneumococcal Vaccine: Peds (0 to 5 Years) and At-Risk Patients (6 to 49 Years) Discontinued 09/09/2014, 09/09/2014, 01/18/2011, Additional history exists Hepatitis B Vaccine Aged Out No longe r eligible based on patient's age to complete this topic Procedures Procedure Name Priority Date/Time Associated Diagnosis Comments LAB SURVEILLANCE TECHNICIAN Routine 02/09/2017 12:00 AM EST from Last 3 Months or Most Recently Relevant to Health Maintenance Results * Lab Maintenance Plumber (02/09/2017 12:00 AM EST) Hemoglobin A1C 9.7 % [facility] 02/09/2017 [facility] Conversion LAB [id number] LICITED RESULTS Final Result [facility] from Last 3 Months or Most Recently Relevant to Health Maintenance Insurance [facility] Care Teams Cat Hooker Relationship Specialty Start Date End Date Erika Powell MD [address] [place] [address] PCP - General Internal Medicine 06/08/23
[2024-07-18 08:09] LABS: Glucose, Whole Blood 266 mg/dL (60-115)
--- NOTE | 2024-07-18 08:50 | ED.AMS ---
HPI - Altered Mental Status General Chief Complaint: Altered Mental Status Stated Complaint: AMS from facility Time Seen by Provider: 07/18/24 08:30 Source: patient and family Mode of arrival: EMS Limitations: no limitations History of Present Illness ED Provider: Dr. Dillon Penaloza HPI narrative: 89-year-old female with a history of diabetes mellitus, hypertension, chronic kidney disease, stroke who presents emergency department for evaluation of the syncopal episode. Information came from the patient's daughter who is here in the emergency department. The patient was given a shower when she had a syncopal episode and had altered mental status. By the time she got to the emergency department, she was back to her baseline. According to her daughter, the patient has been depressed recently secondary to the anniversary of her 's . The daughter has noted that the patient has had a change in her gait and will walk and then suddenly stop walking as if she forgot how to walk. According to the daughter the patient has had 3 falls over the last week and 2 falls on Tuesday07/15/2024. The patient is evaluated by your PCP's office on 07/16/2024 and they ordered outpatient studies on the patient which she had not been done yet. According to the daughter, the patient has been depressed. Also the daughters noted that the patient will start walking and then stop as if she has for gotten out a walk. Daughter also states that over the last month her memory deficits of become more severe. Related Data Home Medications ?Medication ?Instructions ?Recorded ?Confirmed amlodipine 10 mg tablet 10 mg PO DAILY 08/01/22 08/01/22 cholecalciferol (vitamin D3) 25 25 mcg PO DAILY 08/01/22 08/01/22 mcg (1,000 unit) capsule (Vitamin D3) clopidogrel 75 mg tablet 75 mg PO DAILY 08/01/22 08/01/22 cranberry concentrate-ascorbic 1 cap PO DAILY 08/01/22 08/01/22 acid 4,200 mg-20 mg capsule docusate sodium 100 mg capsule 100 mg PO MOWEFR@199908/01/22 08/01/22 (Stool Softener) famotidine 20 mg tablet 20 mg PO DAILY 08/01/22 08/01/22 furosemide 40 mg tablet 40 mg PO DAILY 08/01/22 08/01/22 insulin aspart U-100 100 unit/mL See Protocol subcut DAILY 08/01/22 08/01/22 (3 mL) subcutaneous pen (Novolog FlexPen U-100 Insulin aspart) insulin detemir U-100 100 unit/mL 65 unit subcut DAILY@59908/01/22 08/01/22 (3 mL) subcutaneous pen (Levemir FlexPen) levothyroxine 137 mcg tablet 137 mcg PO DAILY@59908/01/22 08/01/22 potassium chloride 10 mEq 20 meq PO DAILY 08/01/22 08/01/22 tablet,extended release pravastatin 40 mg tablet 40 mg PO DAILY@199908/01/22 08/01/22 Previous Rx's ?Medication ?Instructions ?Recorded cefuroxime axetil 250 mg tablet 250 mg PO BID #2 tabs 08/04/22 cephalexin 500 mg tablet 500 mg PO Q6H 10 days #40 tabs 05/20/23 cefuroxime axetil 250 mg tablet 250 mg PO Q12H 5 days #10 tabs 07/18/24 Allergies Allergy/AdvReac Type Severity Reaction Status Date / Time Sulfa (Sulfonamide Allergy Unknown NAUSEA & Verified 07/18/24 07:01 Antibiotics) VOMITING [SULFA (SULFONAMIDE ANTIBIOTICS)] ciprofloxacin [From Cipro] Allergy Unknown Verified 07/18/24 07:01 Review of Systems Review of Systems: Yes all other systems are reviewed and are negative [facility] Past Medical History [facility] Narrative: Social history: Patient is lives in assisted living. She denies tobacco, alcohol and drug use. Medical History (Updated 07/18/24 @ 14:15 by Dillon Penaloza MD) Diverticulosis Social History Social History Household Members: Other Housing: Assisted Living Facility Housing Other:: Lives at [facility] in [place] Do you presently have visiting nurse or other home services: No Comment: 1:1 sitter Patient Tobacco Use Status: Never used Tobacco Advance Directives: Yes Advance Directives on File: Yes Advance Directives Date on File: 08/09/22 Do you have a plan to hurt others: No Plan service: No Physical Exam ED Vital Signs: Vital Signs - 24 hr 07/18/24 06:59 07/18/24 07:04 07/18/24 09:33 Temperature 97.3 F 97.7 F Pulse Rate 70 68 69 Respiratory Rate 16 14 15 Blood Pressure 148/51 H 145/36 H 152/89 H Pulse Oximetry 94 93 95 Oxygen Delivery Method Room Air Room Air Room Air BMI result Body Mass Index 30.0 Vital signs revealed an elevated blood pressure otherwise unremarkable Exam: General: Awake, alert in no distress, defers all questions to her daughter Head: Normocephalic, atraumatic EENT: PERRL, Lids normal, sclera normal, conjunctiva normal, nose normal , ears normal, throat without erythema or exudates Neck: Supple, no adenopathy Lung: breath sounds symmetric, no wheezing, rales or rhonchi Chest: symmetric movement, nontender Heart: regular rate and rhythm, normal S1, S2, 2/6 systolic murmur best heard at the left lower sternal border Abdomen: soft, non-tender, nondistended, normal bowel sounds Back: no vertebral tenderness, no CVAT Extremities: no deformities, moves all extremities symmetrically Neuro: Awake, alert, oriented to person, normal speech, cranial nerves intact, moves all extremities symmetrically Psych: Pleasant, cooperative Medications Administered Discontinued Medications Generic Name Dose Route Start Last Admin Trade Name Freq PRN Reason Stop Dose Admin Cefuroxime Axetil 250 mg 07/18/24 12:24 07/18/24 12:42 Cefuroxime Axetil 250 Mg Tablet PO 07/18/24 12:25 250 mg ONCE ONE Administration Sodium Chloride 1,000 mls @ 999 mls/hr 07/18/24 11:07 07/18/24 11:29 Ns IV 07/18/24 12:07 999 mls/hr .Q1H1M STA Administration Sodium Chloride 1,000 mls @ 999 mls/hr 07/18/24 12:35 07/18/24 12:38 Ns IV 07/18/24 13:35 999 mls/hr .Q1H1M STA Administration Insulin Glargine 20 unit 07/18/24 11:08 07/18/24 11:32 Insulin Glargine,Hum.Rec.Anlog 100 Unit/Ml 10 Ml Vial SUBCUT 07/18/24 11:09 20 unit ONCE ONE Administration Medical Decision Making Medical Decision Making MDM Narrative: 89-year-old female with a history of diabetes mellitus, hypertension, chronic kidney disease, stroke who presents emergency department for evaluation of the syncopal episode. Information came from the patient's daughter who is here in the emergency department. The patient was given a shower when she had a syncopal episode and had altered mental status. By the time she got to the emergency department, she was back to her baseline. According to her daughter, the patient has been depressed recently secondary to the anniversary of her 's . The daughter has noted that the patient has had a change in her gait and will walk and then suddenly stop walking as if she forgot how to walk. According to the daughter the patient has had 3 falls over the last week and 2 falls on Tuesday07/15/2024. The patient is evaluated by your PCP's office on 07/16/2024 and they ordered outpatient studies on the patient which she had not been done yet. According to the daughter, the patient has been depressed. Also the daughters noted that the patient will start walking and then stop as if she has for gotten out a walk. Daughter also states that over the last month her memory deficits of become more severe. Vital signs revealed an elevated blood pressure. Physical examination was otherwise unremarkable. Differential diagnosis: ?Includes but is not limited to skull fracture, intracranial bleed, stroke, myocardial infarction , myocardial ischemia, urinary tract infection, anemia, electrolyte abnormalities Course: 12:22 My interpretation patient's laboratory evaluation is as follows: Anemia with an H&H of 11 and 35. BUN is elevated 29 with a normal creatinine of 1.26. The patient has had similar BUN elevations in the past. Glucose was elevated 254. Troponin was detectable but not elevated at 14.3, repeat was ordered for 12:00 hours. Urinalysis was positive for leukocyte esterase. Microscopic revealed 0-2 RBCs, greater than 50 WBCs, 0 2 squamous cells 4+ bacteria. This is consistent with a urinary tract infection. The patient was given cefuroxime 250 mg orally X-ray of the patient's right hip and pelvis revealed no acute fracture. CT scan of the head revealed an old right SHELTER ADVOCATE CVA and changes consistent with small-vessel occlusive disease. 14:06 Repeat troponin was flat which is reassuring suggesting that she did not have myocardial infarction as the cause her weakness. The daughter told me that she was [place] in his worse told get her urine culture from Tuesday was scrolling bacteria. Sensitivities are not available to me at this time. I prescribed cefuroxime 250 mg q.12 hours x5 days that has limited ability to walk secondary to weakness but the daughter thinks that she will be fine at her assisted living facility. The patient will be sent back by ambulance. Admission/Observation Consideration of admission/observation: Escalation of care including admission/observation considered (Yes) Lab Data MDM Lab Attestation statement: I reviewed the patient's lab results. 07/18/24 10:00 07/18/24 10:01 Labs: Lab Results 07/18/24 07/18/24 07/18/24 Range/Units 08:05 10:00 10:01 WBC 8.6 (4.8-10.8) X10*3/uL RBC 3.96 L (4.20-5.50) X10*6/uL Hgb 11.1 L (12.0-16.0) g/dl Hct 35.1 L (37.0-47.0) % MCV 88.6 (80.0-98.0) fL MCH 28.0 (27.0-33.0) pg MCHC 31.6 (31.0-35.0) g/dl RDW 13.7 (11.0-16.0) % Plt Count 167 D (160-400) X10*3/uL MPV 13.0 H (9.4-12.3) fL Immature Gran % (Auto) 0.7 H (0.0-0.4) % Neut % (Auto) 80.0 H (45-73) % Lymph % (Auto) 12.2 L (20-40) % [place] % (Auto) 5.0 (2-11) % Eos % (Auto) 1.5 (0-4) % Baso % (Auto) 0.6 (0-2) % Lymph # (Auto) 1.1 L (1.2-4.9) X10*3/uL [place] # (Auto) 0.4 (0.1-1.2) X10*3/uL Eos # (Auto) 0.1 (0.0-0.4) X10*3/uL Baso # (Auto) 0.1 (0.0-0.2) X10*3/uL Abs Immat Gran (auto) 0.06 H (0.00-0.03) X10*3/uL Absolute Neuts (auto) 6.9 (2.0-8.3) x10*3/uL Absolute Nucleated RBC 0.000 (0.0-0.012) X10*3/uL Nucleated RBC % (auto) 0.0 (0.0-0.2) /100WBC Sodium 140 (135-145) mmol/L Potassium 4.0 (3.3-5.1) mmol/L Chloride 105 (96-108) mmol/L Carbon Dioxide 29 (22-29) mmol/L Anion Gap 10 L (12-20) BUN 29 H (9-16) mg/dL Creatinine 1.26 (0.5-1.4) mg/dL Estim Creat Clear Calc 30.3 Estimated GFR 40 POC Glucose 266 H (60-115) mg/dL Fasting Glucose 254 H (60-99) mg/dL Calcium 8.7 (8.4-10.2) mg/dL Total Bilirubin 0.4 (0.0-1.0) mg/dL AST 17 (5-31) U/L ALT < 6 (0-31) U/L Alkaline Phosphatase 92 (39-117) U/L Troponin I High Sens 14.3 (<3.5-17.0) ng/L Total Protein 5.9 L (6.5-8.0) g/dL Albumin 3.5 (3.5-5.0) g/dL Lipase < 4 L (8-78) U/L Urine Color Urine Appearance Urine pH (5.0-9.0) Ur Specific [place] (1.005-1.025) Urine Protein (Neg-Trace) mg/dL Urine Glucose (UA) (Negative) mg/dL Urine Ketones (Negative) mg/dL Urine Blood (Negative) Urine Nitrite (Negative) Ur Leukocyte Esterase (Negative) Urine RBC (0-2) /HPF Urine WBC (0-5) /HPF Ur Squamous Epith Cells (0-2) /HPF Urine Bacteria (None Seen) Hyaline Casts (0-2) /LPF 07/18/24 07/18/24 Range/Units 11:34 13:00 WBC (4.8-10.8) X10*3/uL RBC (4.20-5.50) X10*6/uL Hgb (12.0-16.0) g/dl Hct (37.0-47.0) % MCV (80.0-98.0) fL MCH (27.0-33.0) pg MCHC (31.0-35.0) g/dl RDW (11.0-16.0) % Plt Count (160-400) X10*3/uL MPV (9.4-12.3) fL Immature Gran % (Auto) (0.0-0.4) % Neut % (Auto) (45-73) % Lymph % (Auto) (20-40) % [place] % (Auto) (2-11) % Eos % (Auto) (0-4) % Baso % (Auto) (0-2) % Lymph # (Auto) (1.2-4.9) X10*3/uL [place] # (Auto) (0.1-1.2) X10*3/uL Eos # (Auto) (0.0-0.4) X10*3/uL Baso # (Auto) (0.0-0.2) X10*3/uL Abs Immat Gran (auto) (0.00-0.03) X10*3/uL Absolute Neuts (auto) (2.0-8.3) x10*3/uL Absolute Nucleated RBC (0.0-0.012) X10*3/uL Nucleated RBC % (auto) (0.0-0.2) /100WBC Sodium (135-145) mmol/L Potassium (3.3-5.1) mmol/L Chloride (96-108) mmol/L Carbon Dioxide (22-29) mmol/L Anion Gap (12-20) BUN (9-16) mg/dL Creatinine (0.5-1.4) mg/dL Estim Creat Clear Calc Estimated GFR POC Glucose (60-115) mg/dL Fasting Glucose (60-99) mg/dL Calcium (8.4-10.2) mg/dL Total Bilirubin (0.0-1.0) mg/dL AST (5-31) U/L ALT (0-31) U/L Alkaline Phosphatase (39-117) U/L Troponin I High Sens 14.6 (<3.5-17.0) ng/L Total Protein (6.5-8.0) g/dL Albumin (3.5-5.0) g/dL Lipase (8-78) U/L Urine Color Yellow Urine Appearance Cloudy Urine pH 6.0 (5.0-9.0) Ur Specific [place] 1.015 (1.005-1.025) Urine Protein Trace (Neg-Trace) mg/dL Urine Glucose (UA) 100 H (Negative) mg/dL Urine Ketones Negative (Negative) mg/dL Urine Blood Negative (Negative) Urine Nitrite Negative (Negative) Ur Leukocyte Esterase Large (3+) H (Negative) Urine RBC 0-2 (0-2) /HPF Urine WBC >50 H (0-5) /HPF Ur Squamous Epith Cells 0-2 (0-2) /HPF Urine Bacteria 4+ (None Seen) Hyaline Casts 0-2 (0-2) /LPF Independent Interpretation I performed an independent interpretation of an: EKG and Plain X-Ray Interpretation: My independent interpretation of the patient's left hip x-ray/pelvis-no acute fracture seen Radiology Impression Discussion of test interpretation with radiology: I have reviewed the radiologist's reading. Radiologist Impression: CT head/brain wo IV con IMPRESSION: No acute fracture, bony calvarium. No acute intracranial hemorrhage. Small vessel occlusive disease. Old vascular injury, right SHELTER ADVOCATE territory. Atherosclerosis disease which could be related to diabetes, end-stage renal disease among other etiologies. Electronically signed by: Bhupendra Pittman MD 07/18/2024 09:23 AM XR hip LT w PEL1V IMPRESSION: No acute fracture or dislocation, left hip. Atherosclerosis disease, peripheral. Electronically signed by: Bhupendra Pittman MD 07/18/2024 09:24 AM Independent Historian Clinical information obtained from an independent historian. History obtained from or confirmed by: Other (Daughter) Prescription Management I considered prescription management with: Antibiotic (Longoria's cefuroxime 250 mg q.12 hours x5 days) Discharge Plan Discharge Clinical Impression: Syncope, vasovagal, Multiple falls, Urinary tract infection, Contusion of hip, left Patient Disposition: Home, Self-Care Instructions: Urinary Tract Infection in Older Adults (ED) Additional Instructions: Your blood work revealed mild anemia and kidney disease. None of these findings are new and are not related to your passing out today or your falls. You were treated with normal saline IV x1 L for possible dehydration. Your EKG was unremarkable. Your two high sensitive troponin I (marker of heart attack/heart damage) were normal Your urinalysis/microscopic evaluation revealed white blood cells and bacteria in urine which is consistent with a urinary tract infection. You were given cefuroxime 250 mg orally here in the emergency department, you should take another dose of cefuroxime 250 mg orally at 8pm. Then take cefuroxime 250 mg at 8am and 8 pm for total of [address] scan of your head, neck revealed no significant abnormalities to explain your falls. The radiologist noted an old stroke and you do have small-vessel disease which is normal as we get older. The x-ray of your left hip did not reveal any broken bones which is reassuring. Continue taking your medications as prescribed by your providers. Follow-up with your doctor in 2 days. Please return to the emergency department if your symptoms get worse or if you develop any symptoms that are concerning to you. Prescriptions: New cefuroxime axetil 250 mg tablet 250 mg PO Q12H 5 Days Qty: 10 0RF No Action furosemide 40 mg tablet 40 mg PO DAILY levothyroxine 137 mcg tablet 137 mcg PO DAILY@0600 pravastatin 40 mg tablet 40 mg PO DAILY@2000 potassium chloride 10 mEq tablet extended release 20 meq PO DAILY clopidogrel 75 mg tablet 75 mg PO DAILY famotidine 20 mg tablet 20 mg PO DAILY amlodipine 10 mg tablet 10 mg PO DAILY docusate sodium [Stool Softener] 100 mg Capsule 100 mg PO MOWEFR@2000 insulin aspart U-100 [Novolog FlexPen U-100 Insulin] 100 unit/mL (3 mL) insulin pen See Protocol subcut DAILY Protocol: Insulin Correction Scale Less than or equal to 110 ---- Give (units): 0 111 to 150 Give (units): 0 151 to 200 Give (units): 0 201 to 250 Give (units): 2 251 to 300 Give (units): 4 301 to 350 Give (units): 6 Greater than 350 Give (units): 8 Call MD if Blood Glucose > : 350 Levemir FlexPen 100 unit/mL (3 mL) insulin pen 65 unit subcut DAILY@0600 cranberry conc-ascorbic acid 4,200-20 mg Capsule 1 cap PO DAILY cholecalciferol (vitamin D3) [Vitamin D3] 25 mcg (1,000 unit) Capsule 25 mcg PO DAILY cefuroxime axetil 250 mg tablet 250 mg PO BID Qty: 2 0RF cephalexin 500 mg tablet 500 mg PO Q6H 10 Days Qty: 40 0RF Print Language: Turkmen
--- NOTE | 2024-07-18 09:54 | MHC.EDTECH ---
labs delayed due to patient being a difficult draw . @ techs tried with no results. Phlebotomy called for assistance. they said they would come but 1 1/2 hours has passed. Lead tech now attempting draw.
[2024-07-18 10:06] LABS: MANUAL DIFF FLAG NO
[2024-07-18 10:27] LABS: Lipase < 4 U/L (8-78)
[2024-07-18 10:30] LABS: Alanine Aminotransferase < 6 U/L (0-31); Albumin Level 3.5 g/dL (3.5-5.0); Alkaline Phosphatase 92 U/L (39-117); Anion Gap 10 (12-20); Aspartate Amino Transferase 17 U/L (5-31); Bilirubin Total 0.4 mg/dL (0.0-1.0); Blood Urea Nitrogen 29 mg/dL (9-16); Calcium 8.7 mg/dL (8.4-10.2); Carbon Dioxide 29 mmol/L (22-29); Chloride 105 mmol/L (96-108); Creatinine Clr Calc Pharmacy 30.3; Estimated Glomerular Filt Rate 40; Glucose Fasting 254 mg/dL (60-99); Sodium 140 mmol/L (135-145); Total Protein 5.9 g/dL (6.5-8.0)
[2024-07-18 10:32] LABS: Troponin-I High Sensitivity 14.3 ng/L (<3.5-17.0)
[2024-07-18 10:44] LABS: Basophils Absolute Auto 0.1 X10*3/uL (0.0-0.2); Basophils Percent Auto 0.6 % (0-2); Eosinophils Absolute Auto 0.1 X10*3/uL (0.0-0.4); Eosinophils Percent Auto 1.5 % (0-4); Hematocrit 35.1 % (37.0-47.0); Hemoglobin 11.1 g/dl (12.0-16.0); Imm Gran Abs Auto 0.06 X10*3/uL (0.00-0.03); Imm Gran Pct Auto 0.7 % (0.0-0.4); Lymphocytes Absolute Auto 1.1 X10*3/uL (1.2-4.9); Lymphocytes Percent Auto 12.2 % (20-40); Mean Corpuscular HGB Conc 31.6 g/dl (31.0-35.0); Mean Corpuscular Volume 88.6 fL (80.0-98.0); Monocytes Absolute Auto 0.4 X10*3/uL (0.1-1.2); Neutrophils Absolute Auto 6.9 x10*3/uL (2.0-8.3); Platelet Count 167 X10*3/uL (160-400); Red Blood Count 3.96 X10*6/uL (4.20-5.50); Red Cell Distribution Width 13.7 % (11.0-16.0); White Blood Count 8.6 X10*3/uL (4.8-10.8)
[2024-07-18] MEDS: 0.9 % Sodium Chloride 1,000 ML 999 ML IV ×2 (11:29→12:38)
[2024-07-18] MEDS: Insulin Glargine,Hum.rec.anlog 100 UNIT/ML 10 ML VIAL 20 UNIT SUBCUT (11:32)
[2024-07-18 11:42] LABS: Appearance Urine Cloudy; Color Urine Yellow; Glucose Urine UA 100 mg/dL (Negative); Leukocyte Esterase Urine Large (3+) (Negative); Nitrite Urine Negative (Negative); Specific Gravity - Urine 1.015 (1.005-1.025); UMIC TRIGGER UACC YES; Urine Blood Negative (Negative); Urine Ketones Negative (Negative); Urine Protein Trace mg/dL (Neg-Trace)
[2024-07-18 11:47] LABS: Bacteria Urine 4+ (None Seen); Hyaline Casts Urine 0-2 /LPF (0-2); RBC Urine 0-2 /HPF (0-2); Squamous Epithelial Cell Urine 0-2 /HPF (0-2); UACC Culture Trigger YES; WBC Urine >50 /HPF (0-5)
[2024-07-18] MEDS: cefuroxime axetiL 250 MG TABLET PO (12:42)
[2024-07-18 13:43] LABS: Troponin-I High Sensitivity 14.6 ng/L (<3.5-17.0)
== END 2024-07-18 14:47 | disposition home or self-care (01) ==
PROVIDERS: Emergency Provider Emergency Medicine Emergency Medical Services; PCP Internal Medicine
DX: R55 Syncope and collapse (principal); N39.0 Urinary tract infection, site not specified; S70.02XA Contusion of left hip, initial encounter; Y93.E1 Activity, personal bathing and showering; R29.6 Repeated falls; Z91.81 History of falling; E11.9 Type 2 diabetes mellitus without complications; I10 Essential (primary) hypertension; Z86.73 Personal history of transient ischemic attack (TIA), and cerebral infarction without residual deficits; Z79.4 Long term (current) use of insulin; Z79.02 Long term (current) use of antithrombotics/antiplatelets; Z79.899 Other long term (current) drug therapy; W18.39XA Other fall on same level, initial encounter; Y92.091 Bathroom in other non-institutional residence as the place of occurrence of the external cause; Y99.9 Unspecified external cause status
CPT/HCPCS: 36415; 70450; 73502; 80053; 81001; 82947; 83690; 84484; 85025; 87086; 87088; 87186; 93005; 96360; 96361; 99285

== ENCOUNTER → 2024-07-18 07:41 | Outpatient (BNV) | payer MEDICARE, SELFPAY | PROVIDERS: Emergency Provider Emergency Medicine Emergency Medical Services; PCP Internal Medicine; Visit Provider Internal Medicine Cardiovascular Disease | DX: R94.31 Abnormal electrocardiogram [ECG] [EKG] (principal); R42 Dizziness and giddiness | CPT/HCPCS: 93010 ==

== ENCOUNTER → 2024-07-18 08:51 | Outpatient (BNV) | payer MEDICARE, SELFPAY | PROVIDERS: Emergency Provider Emergency Medicine Emergency Medical Services; PCP Internal Medicine; Visit Provider Radiology Diagnostic Radiology | DX: I63.81 Other cerebral infarction due to occlusion or stenosis of small artery (principal); I67.2 Cerebral atherosclerosis; E11.22 Type 2 diabetes mellitus with diabetic chronic kidney disease; N18.6 End stage renal disease; I70.292 Other atherosclerosis of native arteries of extremities, left leg | CPT/HCPCS: 70450; 73502 ==